=== PATIENT | female | born 1980 | race Caucasian/White ===

== ENCOUNTER 2017-09-14 20:09 | Inpatient (IN) | payer OTHER ==
[2017-09-14] MEDS ORDERED: Sodium Chloride 0.9% 1,000 ML IV ONE ×3 (20:21→22:48)
[2017-09-14 21:12] LABS: ACETAMINOPHEN < 2 ug/mL (10-30)
--- NOTE | 2017-09-14 21:41 | EDM.PDOC ---
ED HPI GENERAL MEDICAL PROBLEM - General Chief Complaint: Drug or Alcohol Abuse Stated Complaint: CONFUSE Time Seen by Provider: 09/14/17 20:15 Source of Information: Reports: Patient, EMS History Limitations: Reports: Altered Mental Status - History of Present Illness INITIAL COMMENTS - FREE TEXT/NARRATIVE: 37 y.o.w.f was brought to the ed by EMS after she was found somnolent in her car. No family was present, and pt is not able to give a HPI. Pt attempted to walk but was confused. she did not remember her meds and was confused to time, place and situation. No N/V/D. Her med list showed she is taking melatonin. Pt fell asleep immediately however, was arousable with verbal stimuli. BP 132/92 RR 12 Pulse 0x 92% on RA Pulse 103 Temp 36.2 Onset Date: 09/14/17 Onset Time: 19:00 Duration: Hour(s): Location: Reports: Generalized Quality: Reports: Other (mental status change) Improves with: Reports: None Worsens with: Reports: None Context: Reports: Other (possible Melatonin OD) Associated Symptoms: Reports: Confusion - Related Data Allergies Allergy/AdvReac Type Severity Reaction Status Date / Time ketorolac tromethamine Allergy Tachycardia Verified 09/14/17 20:36 [From Toradol] tramadol Allergy Shaking Verified 09/14/17 20:36 Home Meds: Home Meds . [Unable to Verify Home Med List] 09/14/17 [History] Past Medical History Other OB/BYN History: Social & Family History - Tobacco Use Smoking Status *Q: Current Every Day Smoker Years of Tobacco use: 2 Used Tobacco, but Quit: No Second Hand Smoke Exposure: No - Alcohol Use Days Per Week of Alcohol Use: 1 Number of Drinks Per Day: 2 Total Drinks Per Week: 2 - Recreational Drug Use Recreational Drug Use: No ED ROS GENERAL - Review of Systems Review Of Systems: Unable To Obtain - Physical Exam Exam: See Below Exam Limited By: Altered Mental Status General Appearance: Lethargic, Obtunded, Mild Distress Eye Exam: Bilateral Eye: Normal Inspection Ears: Normal External Exam Nose: Normal Inspection Throat/Mouth: Normal Inspection Head Exam: Atraumatic, Normocephalic Neck: Normal Inspection, Supple, Non-Tender, Full Range of Motion Respiratory/Chest: No Respiratory Distress, Lungs Clear, Normal Breath Sounds ( poor insp effort) Cardiovascular: Normal Peripheral Pulses, Regular Rate, Rhythm, No Edema, No Murmur, No Rub GI/Abdominal: Normal Bowel Sounds, Soft (Female) Exam: Deferred Rectal (Female) Exam: Deferred Neuro Exam (Abbreviated): Inattentive, Confused, Slow to Respond, Abnormal Gait (due to lethargy) Back Exam: Normal Inspection, Full Range of Motion Extremities: Normal Inspection, Normal Range of Motion, Non-Tender, No Pedal Edema Psychiatric: Depressed Mood Skin Exam: Warm, Dry, Intact, Normal Color, No Rash EKG INTERPRETATION EKG Date: 09/14/17 Time: 23:55 Rhythm: NSR Rate (Beats/Min): 100 [place]: Normal P-Wave: Present QRS: Normal ST-T: Normal QT: Normal Comparison: NA - No Prior EKG Course - Vital Signs Text/Narrative:: 37 y.o.w.f was brought to the ed by EMS after she was found somnolent in her car. No family was present, and pt is not able to give a HPI. Pt attempted to walk but was confused. she did not remember her meds and was confused to time, place and situation. No N/V/D. Her med list showed she is taking melatonin. Pt fell asleep immediately however, was arousable with verbal stimuli. BP 132/92 RR 12 Pulse 0x 92% on RA Pulse 103 Temp 36.2 PE: 37 y.o.w.f came by EMS to the ed after she was found somnolent in her car, denying any etoh or drug use, tkes melatonin for sleep labs: HGB 10.7 WBC 13.6 BUN 5 Cr. 0.7 UDS neg ETOH neg, ASA and Acetaminophen neg Imaging: Not indicated ECG: NSR Impression: Lethargy, possible melatonin OD Tx: NS 9.33 pm Consultation: Po[facility] [place]: Give I.V fluids, observe for 6 hours. Reevaluation: Pt was not improving with NS, was trying to walk but was confused. No focal weakness, needed to be on 1 liter O2 to keep her O2 sat above 94. no family showed up. 23.20: Poison Control called back recommending to admit pt Plan: Pt was admitted to [facility] with tele 09/15/2017 Adendum: Ptwas was admitted to [facility] tele and did improve her mental status. She said, she took a "water pill" which made her sleepy. She dis not remember the name of the pill. She was oriented times X3 was ambulating well. Her arrived, requesting to take her home because he has to go to work at 7 am. Plan: D/C with instructions from the Inpatient service. Last Recorded V/S: Last Vital Signs Temp 36.7 C 09/15/17 04:00 Pulse 101 H 09/15/17 04:00 Resp 18 09/15/17 04:00 BP 177/99 H 09/15/17 04:00 Pulse Ox 98 09/15/17 04:00 - Orders/Labs/Meds Orders: Active Orders 24 hr Category Date Time Status DRUG SCREEN, URINE ALERE [URCHEM] Stat Lab 09/14/17 20:19 Ordered HCG QUALITATIVE,URINE [URCHEM] Stat Lab 09/14/17 20:19 Ordered EKG 12 Lead [EK] Routine Ther 09/14/17 23:50 Ordered Labs: Laboratory Tests 09/14/17 09/14/17 09/14/17 Range/Units 20:19 20:19 20:45 WBC 13.8 H (4.5-12.0) X10-3/uL RBC 4.09 (3.23-5.20) x10(6)uL Hgb 10.7 L D (11.5-15.5) g/dL Hct 32.7 (30.0-51.3) % MCV 79.8 L (80-96) fL MCH 26.0 L (27.7-33.6) pg MCHC 32.6 (32.2-35.4) g/dL RDW 14.7 (11.5-15.5) % Plt Count 229 (125-369) X10(3)uL MPV 8.5 (7.4-10.4) fL Neut % (Auto) 72.0 (46-82) % Lymph % (Auto) 21.9 (13-37) % [place] % (Auto) 4.6 (4-12) % Eos % (Auto) 1 (1.0-5.0) % Baso % (Auto) 0 (0-2) % Neut # (Auto) 10.0 H (1.6-8.3) # Lymph # (Auto) 3.0 (0.6-5.0) # [place] # (Auto) 0.6 (0.0-1.3) # Eos # (Auto) 0.2 (0.0-0.8) # Baso # (Auto) 0.0 (0.0-0.2) # PT (8.7-11.1) INR (0.89-1.13) Sodium (135-145) mmol/L Potassium (3.5-5.3) mmol/L Chloride (100-110) mmol/L Carbon Dioxide (21-32) mmol/L BUN (7-18) mg/dL Creatinine (0.55-1.02) mg/dL Est Cr Clr Drug Dosing Estimated GFR (MDRD) (>60) BUN/Creatinine Ratio (9-20) Glucose (80-116) mg/dL Calcium (8.6-10.2) mg/dL TSH, Ultra Sensitive (0.36-3.74) IU/mL Urine HCG, Qual Negative (NEGATIVE) Salicylates (2.8-20.0) mg/dL Urine Opiates Screen Negative (NEGATIVE) Ur Oxycodone Screen Negative (NEGATIVE) Ur Propoxyphene Screen Negative (NEGATIVE) Acetaminophen (10-30) ug/mL Ur Barbituates Screen Negative (NEGATIVE) Ur Tricyclics Screen Negative (NEGATIVE) Ur Phencyclidine Scrn Negative (NEGATIVE) Ur Amphetamine Screen Negative (NEGATIVE) Urine MDMA Screen Negative (NEGATIVE) U Benzodiazepines Scrn Negative (NEGATIVE) U Cocaine Metab Screen Negative (NEGATIVE) U Marijuana (THC) Screen Negative (NEGATIVE) Ethyl Alcohol (<0.03) % 09/14/17 09/14/17 09/14/17 Range/Units 20:45 20:45 20:45 WBC (4.5-12.0) X10-3/uL RBC (3.23-5.20) x10(6)uL Hgb (11.5-15.5) g/dL Hct (30.0-51.3) % MCV (80-96) fL MCH (27.7-33.6) pg MCHC (32.2-35.4) g/dL RDW (11.5-15.5) % Plt Count (125-369) X10(3)uL MPV (7.4-10.4) fL Neut % (Auto) (46-82) % Lymph % (Auto) (13-37) % [place] % (Auto) (4-12) % Eos % (Auto) (1.0-5.0) % Baso % (Auto) (0-2) % Neut # (Auto) (1.6-8.3) # Lymph # (Auto) (0.6-5.0) # [place] # (Auto) (0.0-1.3) # Eos # (Auto) (0.0-0.8) # Baso # (Auto) (0.0-0.2) # PT 10.3 (8.7-11.1) INR 1.02 (0.89-1.13) Sodium 138 (135-145) mmol/L Potassium 3.6 (3.5-5.3) mmol/L Chloride 101 (100-110) mmol/L Carbon Dioxide 29 (21-32) mmol/L BUN 5 L (7-18) mg/dL Creatinine 0.7 (0.55-1.02) mg/dL Est Cr Clr Drug Dosing TNP Estimated GFR (MDRD) > 60 (>60) BUN/Creatinine Ratio 7.1 L (9-20) Glucose 102 (80-116) mg/dL Calcium 8.7 (8.6-10.2) mg/dL TSH, Ultra Sensitive 4.96 H (0.36-3.74) IU/mL Urine HCG, Qual (NEGATIVE) Salicylates 6.4 (2.8-20.0) mg/dL Urine Opiates Screen (NEGATIVE) Ur Oxycodone Screen (NEGATIVE) Ur Propoxyphene Screen (NEGATIVE) Acetaminophen < 2 L (10-30) ug/mL Ur Barbituates Screen (NEGATIVE) Ur Tricyclics Screen (NEGATIVE) Ur Phencyclidine Scrn (NEGATIVE) Ur Amphetamine Screen (NEGATIVE) Urine MDMA Screen (NEGATIVE) U Benzodiazepines Scrn (NEGATIVE) U Cocaine Metab Screen (NEGATIVE) U Marijuana (THC) Screen (NEGATIVE) Ethyl Alcohol < 0.03 (<0.03) % Meds: Medications Discontinued Medications Generic Name Dose Route Start Last Admin Trade Name Freq PRN Reason Stop Dose Admin Sodium Chloride 1,000 mls @ 999 mls/hr 09/14/17 20:21 09/14/17 20:45 Normal Saline IV 09/14/17 21:21 999 mls/hr .BOLUS ONE Administration Sodium Chloride 1,000 mls @ 999 mls/hr 09/14/17 21:45 09/14/17 21:47 Normal Saline IV 09/14/17 22:45 999 mls/hr .BOLUS ONE Administration Sodium Chloride 1,000 mls @ 125 mls/hr 09/14/17 22:48 09/14/17 22:50 Normal Saline IV 09/15/17 06:47 125 mls/hr .BOLUS ONE Administration Departure - Departure Time of Disposition: 23:00 Disposition: Admitted As Inpatient 68 Condition: Fair Clinical Impression: Mental status change Qualifiers: Altered mental status type: somnolence Qualified Code(s): R40.0 - Somnolence - Discharge Information - My Orders Last 24 Hours: My Active Orders 09/14/17 20:19 DRUG SCREEN, URINE ALERE [URCHEM] Stat HCG QUALITATIVE,URINE [URCHEM] Stat 09/14/17 23:50 EKG 12 Lead [EK] Routine - Assessment/Plan Last 24 Hours: My Active Orders 09/14/17 20:19 DRUG SCREEN, URINE ALERE [URCHEM] Stat HCG QUALITATIVE,URINE [URCHEM] Stat 09/14/17 23:50 EKG 12 Lead [EK] Routine
[2017-09-15 04:10] VITALS: BP 177/99
== END 2017-09-15 05:03 | disposition home or self-care (01) | DRG 81 ==
LOC: FB.ED 20:09 → UNDOADMOB 09-15 00:13 → FB.MS 09-15 00:13 → UNDOADMOB 09-15 02:39 → FB.MS 09-15 02:39 → OBSVTOIN 09-15 02:39 → UNDODISOB 09-15 05:03
PROVIDERS: ADMIT Emergency Medicine; ATTEND Family Medicine
DX: R40.0 Somnolence (principal); F17.200 Nicotine dependence, unspecified, uncomplicated; Z88.8 Allergy status to other drugs, medicaments and biological substances; Z88.6 Allergy status to analgesic agent
CPT/HCPCS: 36415; 80048; 80305; 81025; 84443; 85025; 85610; 93005; 93010; 96360; 96361; 99284; 99285; G0378; G0480; J7030

== ENCOUNTER 2018-07-08 15:47 | Emergency (ER) | payer MEDICAID, OTHER ==
[2018-07-08] MEDS ORDERED: Acetaminophen/HYDROcodone 325-5 MG Tab PO ONE (15:48)
[2018-07-08] MEDS ORDERED: Sodium Chloride 0.9% 10 ML Syringe FLUSH PRN (16:05)
[2018-07-08] MEDS ORDERED: Sodium Chloride 0.9% 1,000 ML IV ONE (16:05)
--- NOTE | 2018-07-08 16:09 | EDM.PDOC ---
ED HPI GENERAL MEDICAL PROBLEM - General Chief Complaint: Back Pain or Injury Stated Complaint: BACKPAIN Time Seen by Provider: 07/08/18 16:06 Source of Information: Reports: Patient History Limitations: Reports: No Limitations - History of Present Illness INITIAL COMMENTS - FREE TEXT/NARRATIVE: Presents with left lower back pain since last night, no injury. +prior h/o kidney stone. Denies nausea. Pain radiates to LUQ Abdomen (slight discomfort). Onset Date: 07/07/18 Location: Reports: Back Quality: Reports: Sharp Severity: Moderate Associated Symptoms: Reports: No Other Symptoms Left low back Pain Score (Numeric/FACES): 6 - Related Data Allergies Allergy/AdvReac Type Severity Reaction Status Date / Time ketorolac [From Toradol] Allergy Respiratory Verified 07/08/18 16:33 Distress ketorolac tromethamine Allergy Tachycardia Verified 07/08/18 16:33 [From Toradol] steroid Allergy Respiratory Uncoded 03/03/18 17:56 Distress Home Meds: Home Meds Ibuprofen 200 mg PO ASDIRECTED PRN 01/28/18 [History] Methocarbamol [Robaxin-750] 1,500 mg PO TID PRN #40 tablet 07/08/18 [Rx] Past Medical History Gastrointestinal History: Reports: Other (See Below) Other Gastrointestinal History: ulcerative colitis Genitourinary History: Reports: Renal Calculus 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 Endocrine/Metabolic History: Reports: Diabetes, Type II Other Endocrine/Metabolic History: takes metformin Dermatologic History: Reports: Other (See Below) Other Dermatologic History: States she was MRSA positive in November 2017. - Infectious Disease History Infectious Disease History: Reports: Chicken Pox, MRSA - Past Surgical History Other HEENT Surgeries/Procedures: unable to get informationas of this time. Other Cardiovascular Surgeries/Procedures: unable to get information as of this time Other Respiratory Surgeries/Procedures: unable to get information as of this time Female Surgical History: Reports: Hysterectomy, Kidney stone extraction Other Neurological Surgeries/Procedures: unable to get information as of this time Other Musculoskeletal Surgeries/Procedures:: unable to get information as of this time Social & Family History - Family History Family Medical History: Noncontributory - Tobacco Use Smoking Status *Q: Current Every Day Smoker Tobacco Use Within Last Twelve Months: Cigarettes Years of Tobacco use: 10 Packs/Tins Daily: 0.5 - Caffeine Use Caffeine Use: Reports: None - Alcohol Use Alcohol Use History: No - Recreational Drug Use Recreational Drug Use: No ED ROS GENERAL - Review of Systems Review Of Systems: ROS reveals no pertinent complaints other than HPI. ED EXAM,LOWER BACK PAIN/INJURY - Physical Exam Exam: See Below Exam Limited By: No Limitations General Appearance: Alert, WD/WN, No Apparent Distress Ears: Normal External Exam Nose: Normal Inspection Throat/Mouth: No Airway Compromise Head: Atraumatic, Normocephalic Neck: Supple Respiratory/Chest: No Respiratory Distress, Lungs Clear, Normal Breath Sounds Cardiovascular: Regular Rate, Rhythm, No Murmur GI/Abdominal: Soft, Non-Tender, No Distention Back Exam: CVA Tenderness (L) Extremities: Normal Range of Motion Neurological: Alert, Normal Mood/Affect Psychiatric: Normal Affect, Normal Mood Skin Exam: Warm, Dry, Intact Course - Vital Signs Last Recorded V/S: Last Vital Signs Temp 35.9 C 07/08/18 15:55 Pulse 64 07/08/18 15:55 Resp 18 07/08/18 15:55 BP 102/55 L 07/08/18 15:55 Pulse Ox 98 07/08/18 15:55 - Orders/Labs/Meds Orders: Active Orders 24 hr Category Date Time Status Abdomen Pelvis wo Cont [CT] Stat Exams 07/08/18 16:16 Taken Sodium Chloride 0.9% [Saline Flush] Med 07/08/18 16:05 Active 10 ml FLUSH ASDIRECTED PRN Saline Lock Insert [OM.PC] Routine Oth 07/08/18 16:05 Ordered Medication Orders Sodium Chloride (Saline Flush) 10 ml FLUSH ASDIRECTED PRN PRN Reason: Keep Vein Open Last Admin: 07/08/18 16:15 Dose: 10 ml Labs: Laboratory Tests 07/08/18 07/08/18 07/08/18 Range/Units 16:02 16:20 16:20 WBC 12.4 H (4.5-12.0) X10-3/uL RBC 5.21 H (3.23-5.20) x10(6)uL Hgb 14.2 (11.5-15.5) g/dL Hct 42.7 (30.0-51.3) % MCV 81.9 (80-96) fL MCH 27.2 L (27.7-33.6) pg MCHC 33.2 (32.2-35.4) g/dL RDW 15.5 (11.5-15.5) % Plt Count 266 (125-369) X10(3)uL MPV 9.5 (7.4-10.4) fL Neut % (Auto) 51.6 (46-82) % Lymph % (Auto) 42.3 H (13-37) % [place] % (Auto) 4.6 (4-12) % Eos % (Auto) 1 (1.0-5.0) % Baso % (Auto) 1 (0-2) % Neut # (Auto) 6.4 (1.6-8.3) # Lymph # (Auto) 5.2 H (0.6-5.0) # [place] # (Auto) 0.6 (0.0-1.3) # Eos # (Auto) 0.1 (0.0-0.8) # Baso # (Auto) 0.1 (0.0-0.2) # Sodium 136 (135-145) mmol/L Potassium 3.8 (3.5-5.3) mmol/L Chloride 101 (100-110) mmol/L Carbon Dioxide 26 (21-32) mmol/L BUN 14 (7-18) mg/dL Creatinine 0.8 (0.55-1.02) mg/dL Est Cr Clr Drug Dosing 69.83 mL/min Estimated GFR (MDRD) > 60 (>60) BUN/Creatinine Ratio 17.5 (9-20) Glucose 89 (80-116) mg/dL Calcium 9.5 (8.6-10.2) mg/dL Total Bilirubin 0.3 (0.1-1.3) mg/dL AST 26 H D (5-25) IU/L ALT 53 H D (12-36) U/L Alkaline Phosphatase 60 (56-112) IU/L Total Protein 8.1 H (6.0-8.0) g/dL Albumin 3.8 (3.5-5.2) g/dL Globulin 4.3 g/dL Albumin/Globulin Ratio 0.9 Urine Color Yellow (YELLOW) Urine Appearance Slightly cloudy (CLEAR) Urine pH 6.0 (5.0-6.5) Ur Specific [place] 1.020 (1.010-1.025) Urine Protein Negative (NEGATIVE) mg/dL Urine Glucose (UA) Normal (NEGATIVE) mg/dL Urine Ketones Negative (NEGATIVE) mg/dL Urine Occult Blood Negative (NEGATIVE) Urine Nitrite Negative (NEGATIVE) Urine Bilirubin Negative (NEGATIVE) Urine Urobilinogen Normal (NEGATIVE) mg/dL Ur Leukocyte Esterase Negative (NEGATIVE) Urine RBC 0-5 (0) Urine WBC 0-5 (0) Ur Squamous Epith Cells Moderate H (NS,R,O) Urine Bacteria Many H (NS) Meds: Medications Generic Name Dose Route Start Last Admin Trade Name Freq PRN Reason Stop Dose Admin Sodium Chloride 10 ml 07/08/18 16:05 07/08/18 16:15 Saline Flush FLUSH 10 ml ASDIRECTED PRN Administration Keep Vein Open Discontinued Medications Generic Name Dose Route Start Last Admin Trade Name Freq PRN Reason Stop Dose Admin Sodium Chloride 1,000 mls @ 999 mls/hr 07/08/18 16:05 07/08/18 16:22 Normal Saline IV 07/08/18 17:05 200 mls/hr .BOLUS ONE Administration - Radiology Interpretation Free Text/Narrative:: CT Abd/Pelvis w/o contrast: no acute findings. Departure - Departure Time of Disposition: 17:20 Disposition: Home, Self-Care 01 Condition: Good Clinical Impression: Low back pain Qualifiers: Chronicity: acute Back pain laterality: left Sciatica presence: without sciatica Qualified Code(s): M54.5 - Low back pain - Discharge Information *PRESCRIPTION DRUG MONITORING PROGRAM REVIEWED*: Yes *COPY OF PRESCRIPTION DRUG MONITORING REPORT IN PATIENT PAULA: No Prescriptions: Methocarbamol [Robaxin-750] 1,500 mg PO TID PRN #40 tablet PRN Reason: Muscle Spasm Instructions: Back Pain, Adult, [id number] Referrals: PCP,None [Primary Care Provider] - Forms: ED Department Discharge Additional Instructions: Take the Hydrocodone and Robaxin as directed. Rest. Follow up with your primary physician in 2 days if symptoms don't improve. - My Orders Last 24 Hours: My Active Orders 07/08/18 16:05 Sodium Chloride 0.9% [Saline Flush] 10 ml FLUSH ASDIRECTED PRN Saline Lock Insert [OM.PC] Routine 07/08/18 16:16 Abdomen Pelvis wo Cont [CT] Stat - Assessment/Plan Last 24 Hours: My Active Orders 07/08/18 16:05 Sodium Chloride 0.9% [Saline Flush] 10 ml FLUSH ASDIRECTED PRN Saline Lock Insert [OM.PC] Routine 07/08/18 16:16 Abdomen Pelvis wo Cont [CT] Stat
[2018-07-08 17:35] VITALS: BP 91/64
== END 2018-07-08 17:32 | disposition home or self-care (01) ==
LOC: FB.ED 15:47
DX: M54.5 Low back pain (principal); F17.210 Nicotine dependence, cigarettes, uncomplicated; E11.9 Type 2 diabetes mellitus without complications; Z88.8 Allergy status to other drugs, medicaments and biological substances
CPT/HCPCS: 36415; 74176; 80053; 81001; 85025; 96360; 99284; A9270-GY; J7030

== ENCOUNTER 2018-10-02 09:13 | Emergency (ER) | payer OTHER, SELFPAY ==
[2018-10-02] MEDS ORDERED: Sodium Chloride 0.9% 10 ML Syringe FLUSH PRN (09:47)
[2018-10-02] MEDS ORDERED: Morphine 4 MG/ML Syringe IVPUSH ONE (09:49)
[2018-10-02] MEDS ORDERED: Ondansetron 4 MG/2 ML SDV IVPUSH ONE (09:49)
[2018-10-02] MEDS ORDERED: Sodium Chloride 0.9% 1,000 ML IV ONE (09:49)
[2018-10-02] MEDS ORDERED: Morphine 2 MG/ML Syringe IM ONE (09:52)
--- NOTE | 2018-10-02 10:07 | EDM.PDOC ---
ED HPI GENERAL MEDICAL PROBLEM - General Chief Complaint: Back Pain or Injury Stated Complaint: RT SIDE AND LOW BACK PAIN Time Seen by Provider: 10/02/18 09:25 Source of Information: Reports: Patient History Limitations: Reports: No Limitations - History of Present Illness INITIAL COMMENTS - FREE TEXT/NARRATIVE: 38-year-old female with 2 day history of intermittent right mid back, flank and abdominal pain. It is sharp and shooting pain. At its worst it is an 8/10. It is worse with palpation. She's also had some nausea and vomiting associated with this. She's had vomiting 2 today. No fevers. No chills. No dysuria. No hematuria. No change in her bowel movements. No trauma. She has not had much of an appetite. She does have a history of low back pain but has never had pain like this before she states. There are no other associated signs or symptoms. There are no other modifying factors. Onset: Other (2 days) Duration: Getting Worse, Waxing/Waning Location: Reports: Abdomen, Back Quality: Reports: Sharp Severity: Moderate Improves with: Reports: None Worsens with: Reports: Other (Palpation) Context: Reports: Other (Nothing) Associated Symptoms: Reports: Loss of Appetite, Nausea/Vomiting Treatments DIRECTOR HOSPICE OPERATIONS: Reports: Other (see below) (Nothing) - Related Data Allergies Allergy/AdvReac Type Severity Reaction Status Date / Time ketorolac [From Toradol] Allergy Respiratory Verified 10/02/18 09:25 Distress ketorolac tromethamine Allergy Tachycardia Verified 10/02/18 09:25 [From Toradol] steroid Allergy Respiratory Uncoded 03/03/18 17:56 Distress Home Meds: Home Meds Ibuprofen 200 mg PO ASDIRECTED PRN 01/28/18 [History] Hydrocodone/Acetaminophen [Brock[place] 5-325 Tablet] 1 - 2 tab PO Q6H PRN #12 tablet 10/02/18 [Rx] Ondansetron [Zofran ODT] 4 mg PO Q6H PRN #10 tab.dis 10/02/18 [Rx] Tamsulosin [Tamsulosin 24 Hr] 0.4 mg PO BEDTIME #7 cap.er 10/02/18 [Rx] Past Medical History Genitourinary History: Reports: Renal Calculus Other Genitourinary History: Kidney stones 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 Endocrine/Metabolic History: Reports: Diabetes, Type II Other Endocrine/Metabolic History: takes metformin /denied taking any meds at this time 10/02/18 Dermatologic History: Reports: Other (See Below) Other Dermatologic History: States she was MRSA positive in November 2017. - Infectious Disease History Infectious Disease History: Reports: Chicken Pox, MRSA - Past Surgical History Other HEENT Surgeries/Procedures: unable to get informationas of this time. Other Cardiovascular Surgeries/Procedures: unable to get information as of this time Other Respiratory Surgeries/Procedures: unable to get information as of this time GI Surgical History: Reports: Appendectomy, Cholecystectomy Female Surgical History: Reports: Hysterectomy, Kidney stone extraction Other Neurological Surgeries/Procedures: unable to get information as of this time Other Musculoskeletal Surgeries/Procedures:: unable to get information as of this time Social & Family History - Tobacco Use Smoking Status *Q: Never Smoker Second Hand Smoke Exposure: Yes - Caffeine Use Caffeine Use: Reports: None - Alcohol Use Alcohol Use History: No - Living Situation & Occupation Occupation: Employed (Works at [employer] ED ROS GENERAL - Review of Systems Review Of Systems: See Below Constitutional: Reports: No Symptoms HEENT: Reports: No Symptoms Respiratory: Reports: No Symptoms Cardiovascular: Reports: No Symptoms Endocrine: Reports: No Symptoms GI/Abdominal: Reports: Abdominal Pain (Right-sided), Nausea, Vomiting : Reports: No Symptoms Musculoskeletal: Reports: Back Pain (Right mid back pain) Skin: Reports: No Symptoms Neurological: Reports: No Symptoms Hematologic/Lymphatic: Reports: No Symptoms Immunologic: Reports: No Symptoms ED EXAM, GENERAL - Physical Exam Exam: See Below Exam Limited By: No Limitations General Appearance: Alert, WD/WN, No Apparent Distress Eye Exam: Bilateral Eye: EOMI, Normal Inspection, PERRL Ears: Normal External Exam, Hearing Grossly Normal Nose: Normal Inspection, Normal Mucosa Throat/Mouth: Normal Inspection (Except dry mucous membranes), Normal Voice, No Airway Compromise Head: Atraumatic, Normocephalic Neck: Normal Inspection, Supple, Non-Tender, Full Range of Motion Respiratory/Chest: No Respiratory Distress, Lungs Clear, Normal Breath Sounds, No Accessory Muscle Use, Chest Non-Tender Cardiovascular: Normal Peripheral Pulses, Regular Rate, Rhythm, No JVD, No Murmur Peripheral Pulses: 2+: Radial (L), Radial (R) GI/Abdominal: Normal Bowel Sounds, Soft, No Organomegaly, No Distention, Tender (Over right flank and right mid abdomen) Back Exam: Normal Inspection, CVA Tenderness (R) (Mild) Extremities: Normal Inspection, Normal Range of Motion, Non-Tender, No Pedal Edema, Normal Capillary Refill Neurological: Alert, Oriented, CN II-XII Intact, Normal Cognition, No Motor/ Sensory Deficits Psychiatric: Normal Affect Skin Exam: Warm, Dry, Intact, Normal Color, No Rash Lymphatic: No Adenopathy Course - Vital Signs Last Recorded V/S: Last Vital Signs Temp 37.0 C 10/02/18 09:15 Pulse 88 10/02/18 09:15 Resp 18 10/02/18 09:15 BP 103/82 10/02/18 09:15 Pulse Ox 98 10/02/18 09:15 - Orders/Labs/Meds Orders: Active Orders 24 hr Category Date Time Status Abdomen Pelvis wo Cont [CT] Stat Exams 10/02/18 09:47 Taken CULTURE URINE [RM] Stat Lab 10/02/18 13:16 Ordered Sodium Chloride 0.9% [Saline Flush] Med 10/02/18 09:47 Active 10 ml FLUSH ASDIRECTED PRN Peripheral IV Insertion Adult [OM.PC] Routine Oth 10/02/18 09:47 Ordered Medication Orders Sodium Chloride (Saline Flush) 10 ml FLUSH ASDIRECTED PRN PRN Reason: Keep Vein Open Last Admin: 10/02/18 12:11 Dose: 10 ml Labs: Laboratory Tests 10/02/18 10/02/18 10/02/18 Range/Units 10:00 10:00 10:45 WBC 11.6 (4.5-12.0) X10-3/uL RBC 4.67 (3.23-5.20) x10(6)uL Hgb 13.3 (11.5-15.5) g/dL Hct 40.1 (30.0-51.3) % MCV 85.8 (80-96) fL MCH 28.4 (27.7-33.6) pg MCHC 33.1 (32.2-35.4) g/dL RDW 14.1 (11.5-15.5) % Plt Count 245 (125-369) X10(3)uL MPV 9.3 (7.4-10.4) fL Neut % (Auto) 55.6 (46-82) % Lymph % (Auto) 39.5 H (13-37) % [place] % (Auto) 3.7 L (4-12) % Eos % (Auto) 1 (1.0-5.0) % Baso % (Auto) 1 (0-2) % Neut # (Auto) 6.4 (1.6-8.3) # Lymph # (Auto) 4.6 (0.6-5.0) # [place] # (Auto) 0.4 (0.0-1.3) # Eos # (Auto) 0.1 (0.0-0.8) # Baso # (Auto) 0.1 (0.0-0.2) # Sodium 142 (135-145) mmol/L Potassium 3.8 (3.5-5.3) mmol/L Chloride 103 (100-110) mmol/L Carbon Dioxide 27 (21-32) mmol/L BUN 13 (7-18) mg/dL Creatinine 0.8 (0.55-1.02) mg/dL Est Cr Clr Drug Dosing TNP Estimated GFR (MDRD) > 60 (>60) BUN/Creatinine Ratio 16.3 (9-20) Glucose 79 L (80-116) mg/dL Calcium 9.0 (8.6-10.2) mg/dL Total Bilirubin 0.2 (0.1-1.3) mg/dL AST 37 H D (5-25) IU/L ALT 75 H D (12-36) U/L Alkaline Phosphatase 70 (56-112) IU/L Total Protein 7.8 (6.0-8.0) g/dL Albumin 3.9 (3.5-5.2) g/dL Globulin 3.9 g/dL Albumin/Globulin Ratio 1.0 Amylase 46 (25-115) U/L Urine Color Yellow (YELLOW) Urine Appearance Slightly cloudy (CLEAR) Urine pH 6.0 (5.0-6.5) Ur Specific [place] 1.020 (1.010-1.025) Urine Protein Negative (NEGATIVE) mg/dL Urine Glucose (UA) Normal (NORMAL) mg/dL Urine Ketones Negative (NEGATIVE) mg/dL Urine Occult Blood Large H (NEGATIVE) Urine Nitrite Negative (NEGATIVE) Urine Bilirubin Negative (NEGATIVE) Urine Urobilinogen Normal (NEGATIVE) mg/dL Ur Leukocyte Esterase Negative (NEGATIVE) Urine RBC 75-100 H (0-5) Urine WBC 0-5 (0-5) Ur Squamous Epith Cells Few H (NS,R,O) Urine Bacteria Few H (NS) Meds: Medications Generic Name Dose Route Start Last Admin Trade Name Freq PRN Reason Stop Dose Admin Sodium Chloride 10 ml 10/02/18 09:47 10/02/18 12:11 Saline Flush FLUSH 10 ml ASDIRECTED PRN Administration Keep Vein Open Discontinued Medications Generic Name Dose Route Start Last Admin Trade Name Freq PRN Reason Stop Dose Admin Sodium Chloride 1,000 mls @ 999 mls/hr 10/02/18 09:49 10/02/18 10:00 Normal Saline IV 10/02/18 10:49 999 mls/hr .BOLUS ONE Administration Morphine Sulfate 4 mg 10/02/18 09:49 10/02/18 12:05 Morphine IVPUSH 10/02/18 09:50 Not Given ONETIME ONE Morphine Sulfate 4 mg 10/02/18 09:52 10/02/18 10:00 Morphine IM 10/02/18 09:53 4 mg ONETIME ONE Administration Morphine Sulfate 2 mg 10/02/18 11:59 10/02/18 12:07 Morphine IVPUSH 10/02/18 12:00 2 mg ONETIME ONE Administration Ondansetron HCl 4 mg 10/02/18 09:49 10/02/18 10:00 Zofran IVPUSH 10/02/18 09:50 4 mg ONETIME ONE Administration - Radiology Interpretation Free Text/Narrative:: CT scan of abdomen and pelvis showed no evidence of ureteral dilation, hydronephrosis or ureteral stone. There did not appear to be any other abnormality on the CT scan per my read. The official reading is pending at this time and is being held up secondary to problems with the PACS system. - Re-Assessments/Exams Free Text/Narrative Re-Assessment/Exam: 10/02/18 13:13: The PACS system is still down and therefore, the official reading of the CT scan is unavailable at this time. The patient has remained vitally stable. Her pain is improved after medication. She has had no vomiting in the emergency department and, in fact, she is taking by mouth now with no problems. The plan will be to treat the patient with Flomax and give her a prescription for pain medication and nausea medication and have her strain her urine. I have placed a referral to Peri Shaffer so that the patient can be established with a primary doctor to follow her for this and other medical concerns in the future. Departure - Departure Time of Disposition: 13:40 Disposition: Home, Self-Care 01 Condition: Good Clinical Impression: Right flank pain Abdominal pain Qualifiers: Abdominal location: right lower quadrant Qualified Code(s): R10.31 - Right lower quadrant pain Hematuria Qualifiers: Hematuria type: unspecified type Qualified Code(s): R31.9 - Hematuria, unspecified - Discharge Information Prescriptions: Hydrocodone/Acetaminophen [Brock[place] 5-325 Tablet] 1 - 2 tab PO Q6H PRN #12 tablet PRN Reason: Moderate to severe pain Ondansetron [Zofran ODT] 4 mg PO Q6H PRN #10 tab.dis PRN Reason: Nausea/Vomiting Tamsulosin [Tamsulosin 24 Hr] 0.4 mg PO BEDTIME #7 cap.er Instructions: Abdominal Pain, Adult, [id number], Pain Without a Known Cause, Hematuria, Adult Referrals: Melanie Shaffer NP [Nurse Practitioner] - PCP,None [Primary Care Provider] - Forms: ED Department Discharge Additional Instructions: As we discussed, your urine did have blood in it. Your blood tests were reassuringly normal. The CT scan of your abdomen and pelvis did not show a definite kidney stone or any other abnormality that would explain the pain you' re having in your back right side and right abdomen. I am waiting on the official reading on your CT scan and if it is different from above I will call you. Because of the blood in your urine, I would suspect this may be a small kidney stone that is passing from your kidney to your bladder. You should drink plenty of fluids. Medication as prescribed (hydrocodone 5/325, Flomax, Zofran 4 mg ODT). When you take the Flomax, you should be very careful as it may cause dizziness. I have referred you to Melanie Shaffer NP so that he may establish with a primary doctor to follow you for this problem and for your other health problems. You should expect a call from her office to arrange an appointment to see her. Back to the emergency department for fever, unrelenting vomiting or any other concerning sign or symptom. - My Orders Last 24 Hours: My Active Orders 10/02/18 09:47 Abdomen Pelvis wo Cont [CT] Stat Sodium Chloride 0.9% [Saline Flush] 10 ml FLUSH ASDIRECTED PRN Peripheral IV Insertion Adult [OM.PC] Routine 10/02/18 13:16 CULTURE URINE [RM] Stat - Assessment/Plan Last 24 Hours: My Active Orders 10/02/18 09:47 Abdomen Pelvis wo Cont [CT] Stat Sodium Chloride 0.9% [Saline Flush] 10 ml FLUSH ASDIRECTED PRN Peripheral IV Insertion Adult [OM.PC] Routine 10/02/18 13:16 CULTURE URINE [RM] Stat
[2018-10-02] MEDS ORDERED: Morphine 2 MG/ML Syringe IVPUSH ONE (11:59)
[2018-10-02 14:11] VITALS: BP 111/86
== END 2018-10-02 14:00 | disposition home or self-care (01) ==
LOC: FB.ED 09:13
DX: R10.31 Right lower quadrant pain (principal); R31.9 Hematuria, unspecified; Z79.899 Other long term (current) drug therapy; Z77.22 Contact with and (suspected) exposure to environmental tobacco smoke (acute) (chronic); Z88.6 Allergy status to analgesic agent
CPT/HCPCS: 36415; 74176; 80053; 81001; 82150; 85025; 87086; 96361; 96374; 96375; 96376; 99284; J2270; J2405; J7030

== ENCOUNTER 2018-10-25 13:44 | Emergency (ER) | payer OTHER, SELFPAY ==
--- NOTE | 2018-10-25 14:31 | EDM.PDOC ---
ED HPI GENERAL MEDICAL PROBLEM - General Chief Complaint: Back Pain or Injury Stated Complaint: BACK PAIN Time Seen by Provider: 10/25/18 14:21 Source of Information: Reports: Patient, Old Records History Limitations: Reports: No Limitations - History of Present Illness INITIAL COMMENTS - FREE TEXT/NARRATIVE: pleasant 38yo female presents today with acute onset of back pain which started when she went to lift a heavy box at work. 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 She reports pain in her left low back, does not go into her leg. She has not taken anything for the pain. She denies any previous injury and's\\ was feeling well prior to this happening. No saddle anesthesia, no obvious changes in bowel or bladder also the injury was only 90 minutes ago. No pain going down her left leg. She has not noted anything that makes it better or worse. 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 L lower back region Pain Score (Numeric/FACES): 7 - Related Data Allergies Allergy/AdvReac Type Severity Reaction Status Date / Time ketorolac [From Toradol] Allergy Respiratory Verified 10/25/18 13:51 Distress ketorolac tromethamine Allergy Tachycardia Verified 10/25/18 13:51 [From Toradol] steroid Allergy Respiratory Uncoded 10/25/18 13:51 Distress Home Meds: Home Meds Cyclobenzaprine [Flexeril] 5 - 10 mg PO TID PRN 7 Days #20 tablet 10/25/18 [Rx] Past Medical History Cardiovascular History: Reports: Hypertension Gastrointestinal History: Reports: Other (See Below) Other Gastrointestinal History: hx ulcerative colitis Genitourinary History: Reports: Renal Calculus Other Genitourinary History: Kidney stones 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 Endocrine/Metabolic History: Reports: Diabetes, Type II, Obesity/BMI 30+ Other Endocrine/Metabolic History: takes metformin /denied taking any meds at this time, is diet controlled. Dermatologic History: Reports: Other (See Below) Other Dermatologic History: States she was MRSA positive in November 2017. - Infectious Disease History Infectious Disease History: Reports: Chicken Pox, MRSA - Past Surgical History HEENT Surgical History: Reports: Adenoidectomy, Oral Surgery, Tonsillectomy Cardiovascular Surgical History: Reports: None GI Surgical History: Reports: Appendectomy, Cholecystectomy, Colonoscopy Female Surgical History: Reports: Hysterectomy, Other (See Below) Other Female Surgeries/Procedures: vag hyst Social & Family History - Family History Family Medical History: Noncontributory - Tobacco Use Smoking Status *Q: Former Smoker Years of Tobacco use: 10 Used Tobacco, but Quit: Yes Month/Year Tobacco Last Used: may - Caffeine Use Caffeine Use: Reports: None - Alcohol Use Alcohol Use History: No - Recreational Drug Use Recreational Drug Use: No - Living Situation & Occupation Occupation: Employed (Works at [employer]) ED ROS GENERAL - Review of Systems Review Of Systems: ROS reveals no pertinent complaints other than HPI. ED EXAM, GENERAL - Physical Exam Exam: See Below Free Text/Narrative:: Gen.: Alert, somewhat flattened affect, not in acute distress. Moves very slowly across the exam room to get onto the table. Reflexes +2/4 in both the upper and lower extremities bilaterally, muscle strength +5 out of 5 in the left leg at all spinal levels. Muscle strength +4 out of 5 in hip flexion, knee flexion and extension, foot inversion, and dorsiflexion in the right leg with very poor cooperation on exam. +5 out of 5 strength standing on heels and toes. Is able to sit and lie down on bed but moves slowly due to pain. Abdominal exam soft, nondistended and nontender with no rebound or guarding and no reproduction of back pain. Patient is nontender over the spinous processes posteriorly, and has no hip tenderness with pelvic compression or head movement. She is tender over the paraspinal muscles on the left side. Skin is intact with no abrasion or bruising Course - Vital Signs Text/Narrative:: Patient seen and evaluated, low back injury related to picking up a box at work and patient have any other symptoms or red flags. no indication for xray. She reports feeling well prior to the injury and also reports no previous history of injury, however she has been evaluated for back pain here in the emergency room in the past. Discussed expected course and need for follow-up early next week, [id number] treatment such as Tylenol, ibuprofen, heat and ice which can help alleviate symptoms, and reasons to return for further care. All questions were answered Last Recorded V/S: Last Vital Signs Temp 36.8 C 10/25/18 13:46 Pulse 116 H 10/25/18 13:46 Resp 18 10/25/18 13:46 BP 142/89 H 10/25/18 13:46 Pulse Ox 99 10/25/18 13:46 - Orders/Labs/Meds Meds: Medications Discontinued Medications Generic Name Dose Route Start Last Admin Trade Name Antonia PRN Reason Stop Dose Admin Ibuprofen 800 mg 10/25/18 14:36 10/25/18 14:50 Motrin PO 10/25/18 14:37 800 mg ONETIME ONE Administration Departure - Departure Time of Disposition: 14:35 Disposition: Home, Self-Care 01 Condition: Fair Clinical Impression: Low back pain Qualifiers: Chronicity: acute Back pain laterality: left Sciatica presence: without sciatica Qualified Code(s): M54.5 - Low back pain - Discharge Information *PRESCRIPTION DRUG MONITORING PROGRAM REVIEWED*: Yes *COPY OF PRESCRIPTION DRUG MONITORING REPORT IN PATIENT PAULA: Yes Prescriptions: Cyclobenzaprine [Flexeril] 5 - 10 mg PO TID PRN 7 Days #20 tablet PRN Reason: Pain Instructions: Acute Back Pain, Adult Referrals: PCP,None [Primary Care Provider] - Forms: ED Department Discharge Additional Instructions: likely will hurt more in the morning and over the next couple days as the inflammation peaks from the injury. Things to help: Ibuprofen up to 600mg (3 tabs) three times per day tylenol per bottle ice up to 20 min every hour (don't fall asleep with ice though - can cause frostbite) heat - up to 10-15 minutes, or the best way to apply heat is to get in the shower, the running water, warmth and movement are all helpful anything topical is ok -icy hot, biofreeze are two common over the counter medications flexeril as needed - muscle relaxant - prescription given to help, don't take before driving as it can make you sleepy Gentle movements - no lifting - but walking alternating with lying down, avoiding prolonged sitting or standing, and moving around the house are good Should start to feel better after Monday. At this point it is important to move around and get some walking in to help the muscles repair and not get stiff followup next week with PCP note provided for work
[2018-10-25] MEDS ORDERED: Ibuprofen 800 MG Tab PO ONE (14:36)
[2018-10-25 15:05] VITALS: BP 136/88
== END 2018-10-25 14:56 | disposition home or self-care (01) ==
LOC: FB.ED 13:44
DX: M54.5 Low back pain (principal); E11.9 Type 2 diabetes mellitus without complications; F41.9 Anxiety disorder, unspecified; F32.9 Major depressive disorder, single episode, unspecified; Z87.891 Personal history of nicotine dependence; Z79.899 Other long term (current) drug therapy; Z88.5 Allergy status to narcotic agent; X50.0XXA Overexertion from strenuous movement or load, initial encounter
CPT/HCPCS: 99283; A9270

== ENCOUNTER 2018-10-27 13:12 | Emergency (ER) | payer OTHER ==
[2018-10-27] MEDS ORDERED: Ondansetron 8 MG Tab.DIS PO ONE (13:54)
[2018-10-27 14:40] VITALS: BP 102/73
--- NOTE | 2018-10-27 15:12 | EDM.PDOC ---
ED HPI GENERAL MEDICAL PROBLEM - General Chief Complaint: Back Pain or Injury Stated Complaint: BACK PAIN Time Seen by Provider: 10/27/18 13:30 Source of Information: Reports: Patient History Limitations: Reports: No Limitations - History of Present Illness INITIAL COMMENTS - FREE TEXT/NARRATIVE: patient returns today with still bad back pain which began while at work at [employer] 2 days ago. Flexeril isn't helping. She has also been taking ibuprofen, tylenol, making sure to move around the house, no lifting. Some diarrhea started a couple days ago, no blood. Mild nausea today. No urinary symptoms or change in urinary. No incontinence or retention. Does notice a new number/tingly feeling on her anterior thigh, left side. No pain otherwise in her legs or going down the back of her legs. She denies fever, chills, sweats (hair wet, but showered before coming here). Pain is worse with movement/changing positions. Has been home from work - given note on 10/25. No numbness or tingling in hands or feet, no saddle anesthesia. No abdominal pain, headaches, or changes in balance. back pain Pain Score (Numeric/FACES): 6 - Related Data Allergies Allergy/AdvReac Type Severity Reaction Status Date / Time ketorolac [From Toradol] Allergy Respiratory Verified 10/27/18 13:47 Distress ketorolac tromethamine Allergy Tachycardia Verified 10/27/18 13:47 [From Toradol] steroid Allergy Respiratory Uncoded 10/25/18 13:51 Distress Home Meds: Home Meds Baclofen 10 mg PO Q8H PRN 7 Days #12 tablet 10/27/18 [Rx] Ondansetron [Zofran] 4 - 8 mg PO Q6H 30 Days #20 tab 10/27/18 [Rx] Past Medical History Cardiovascular History: Reports: Hypertension Gastrointestinal History: Reports: Other (See Below) Other Gastrointestinal History: hx ulcerative colitis Genitourinary History: Reports: Renal Calculus Other Genitourinary History: Kidney stones 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 Endocrine/Metabolic History: Reports: Diabetes, Type II, Obesity/BMI 30+ Other Endocrine/Metabolic History: takes metformin /denied taking any meds at this time, is diet controlled. Dermatologic History: Reports: Other (See Below) Other Dermatologic History: States she was MRSA positive in November 2017. - Infectious Disease History Infectious Disease History: Reports: Chicken Pox, MRSA - Past Surgical History HEENT Surgical History: Reports: Adenoidectomy, Oral Surgery, Tonsillectomy Cardiovascular Surgical History: Reports: None GI Surgical History: Reports: Appendectomy, Cholecystectomy, Colonoscopy Female Surgical History: Reports: Hysterectomy, Other (See Below) Other Female Surgeries/Procedures: vag hyst Social & Family History - Family History Family Medical History: Noncontributory - Tobacco Use Smoking Status *Q: Former Smoker Used Tobacco, but Quit: Yes Month/Year Tobacco Last Used: may - Caffeine Use Caffeine Use: Reports: None - Alcohol Use Alcohol Use History: No - Recreational Drug Use Recreational Drug Use: No - Living Situation & Occupation Occupation: Employed (Works at [employer]) ED ROS GENERAL - Review of Systems Review Of Systems: ROS reveals no pertinent complaints other than HPI. ED EXAM, GENERAL - Physical Exam Exam: See Below Free Text/Narrative:: Gen.: Alert, mild distress. Nontoxic appearing. Here with, but showered before coming, slightly sweaty and tachycardic but is extremely warm outside today. At the end of the appointment she is sitting calmly, is not sweating or diuretic and appears well. Abdomen positive bowel sounds, soft nondistended nontender. No rebound or guarding. Heart is regular rate and rhythm and rate about 100, lungs are clear throughout with no wheezes or crackles. Neurologic exam shows: Refl +2/4 in both the upper and lower extremities including brachialradialis, patella and achilles. Negative Babinski sign. Sensation is grossly intact throughout, but she does have an area of paresthesias and pain over the left anterior thigh. Muscle strength is +5/5 in all muscle groups below the knee. +4/5 with quad strength on the left and hamstring strength on the left seems to be due to pain. On the right is 5/5. Hip abduction and hip abduction 5/5. Much improved cooperation over 2 days ago Musculoskeletal exam: She has pain with flexion, none with extension. Pain with side bending towards the left, none with side bending towards the right. Palpation over the posterior lumbar spine shows no spinous process tenderness, and no tenderness or tender points on the right side of the gluteal muscles. She has a left gluteal trigger point which compression of reproduces the symptoms in her thigh. Skin is without redness or erythema. Course - Vital Signs Text/Narrative:: Patient initially evaluated, vitals upon arrival were abnormal with an elevated temperature, elevated heart rate and elevated respiratory rate. Given her appearance it is difficult to determine if this is secondary to just coming in from a very warm outside and her pain versus systemic illness which is related in part to her back pain. Her exam is actually markedly improved from 2 days ago and much more focal now to a left-sided muscle strain in her back. Per her chart she does have a history of ulcerative colitis, but given that this onset with a known injury I think it is unlikely to be coming from there. Her diarrhea is new so we will get a CBC, BMP and CRP. Her Babinski is negative and she is overall moving better than prior, so I don't think this is necessarily related to her back pain. Offered Zofran, she did take Tylenol and ibuprofen just before coming here. Aware that I do not give narcotics for back pain. Last Recorded V/S: Last Vital Signs Temp 37.3 C 10/27/18 14:00 Pulse 103 H 10/27/18 14:00 Resp 20 10/27/18 14:00 BP 102/73 10/27/18 14:00 Pulse Ox 97 10/27/18 14:00 - Orders/Labs/Meds Labs: Laboratory Tests 10/27/18 10/27/18 10/27/18 Range/Units 14:06 14:06 14:06 WBC 17.9 H (4.5-12.0) X10-3/uL RBC 5.38 H (3.23-5.20) x10(6)uL Hgb 15.4 (11.5-15.5) g/dL Hct 46.4 (30.0-51.3) % MCV 86.3 (80-96) fL MCH 28.6 (27.7-33.6) pg MCHC 33.1 (32.2-35.4) g/dL RDW 13.3 (11.5-15.5) % Plt Count 263 (125-369) X10(3)uL MPV 9.7 (7.4-10.4) fL Neut % (Auto) 55.1 (46-82) % Lymph % (Auto) 36.2 (13-37) % [place] % (Auto) 7.1 (4-12) % Eos % (Auto) 1 (1.0-5.0) % Baso % (Auto) 1 (0-2) % Neut # (Auto) 9.8 H (1.6-8.3) # Lymph # (Auto) 6.5 H (0.6-5.0) # [place] # (Auto) 1.3 (0.0-1.3) # Eos # (Auto) 0.1 (0.0-0.8) # Baso # (Auto) 0.2 (0.0-0.2) # Sodium 144 (135-145) mmol/L Potassium 3.1 L (3.5-5.3) mmol/L Chloride 105 (100-110) mmol/L Carbon Dioxide 27 (21-32) mmol/L BUN 11 (7-18) mg/dL Creatinine 1.0 (0.55-1.02) mg/dL Est Cr Clr Drug Dosing 55.86 mL/min Estimated GFR (MDRD) > 60 (>60) BUN/Creatinine Ratio 11.0 (9-20) Glucose 150 H (80-116) mg/dL Calcium 9.4 (8.6-10.2) mg/dL C-Reactive Protein 1.1 H (0.5-0.9) mg/dL Meds: Medications Discontinued Medications Generic Name Dose Route Start Last Admin Trade Name Freq PRN Reason Stop Dose Admin Ondansetron HCl 8 mg 10/27/18 13:54 10/27/18 14:09 Zofran Odt PO 10/27/18 13:55 8 mg ONETIME ONE Administration - Re-Assessments/Exams Free Text/Narrative Re-Assessment/Exam: 10/27/18 patient feeling (and looking) much better after zofran labs reviewed, elevated WBCs, no left shift, CRP just barely above normal. BMP shows slightly low potassium and elevated glucose discussed results with patient - given her symptoms I suspect at this point she has a viral illness that is causing the diarrhea. Overall she looks to be moving a bit better than two days ago with her back although I understand she is still in a lot of pain. Flexeril has not helped, offered to try switch to baclofen. Unable to use steroids because of diabetes. Strongly recommend physical therapy, which she is agreeable too, but referral needs to be placed by someone who can provide some sort of followup. Discussed at length inflammatory cycle of injury and reassurance that she should feel better by Monday. She requested a return to work note, which I declined to provide as this should not be done until she is feeling better. Given zofran script for nausea, also discussed low potassium, she has supplements at home which she only takes when instructed, so recommended taking for 5-7 days. After some conversation I suspect her dietary intake is not very high, and likely she is losing a bit in her diarrhea. Also continue replacing fluids. Strongly encouraged to followup and establish with a PCP. She states she plans to go to [place]. She has received some prescriptions from a couple clinicians here, which may also be an option. Departure - Departure Time of Disposition: 15:04 Disposition: Home, Self-Care 01 Condition: Good Clinical Impression: Diarrhea, Hypokalemia Back pain Qualifiers: Back pain location: low back pain Chronicity: acute Back pain laterality: left Sciatica presence: without sciatica Qualified Code(s): M54.5 - Low back pain - Discharge Information *PRESCRIPTION DRUG MONITORING PROGRAM REVIEWED*: Yes *COPY OF PRESCRIPTION DRUG MONITORING REPORT IN PATIENT PAULA: No Prescriptions: Baclofen 10 mg PO Q8H PRN 7 Days #12 tablet PRN Reason: Pain Ondansetron [Zofran] 4 - 8 mg PO Q6H 30 Days #20 tab Referrals: PCP,None [Primary Care Provider] - Melanie Shaffer NP [Nurse Practitioner] - Tameka Thurman NP [Nurse Practitioner] - Forms: ED Department Discharge Additional Instructions: be sure to establish with a primary care provider - need someone to check on diabetes!!! sugar a little high today Low Potassium - use supplements for next 5-7 days to replenish. Likely related to diarrhea and low dietary intake the diarrhea is most likely related to a viral infection and should resolve on its own in the next few days. Be sure to drink a lot to replace the fluid you are loosing nausea - script for zofran written. You can split the tabs if you want and just take 4mg you could also try an antacid like tums or pepcid/zantac/generic equivalent and see if that helps back pain: new script given for baclofen to try as a muscle relaxer should be improved by Monday followup at acute care clinic for release back to work and physical therapy referral
== END 2018-10-27 15:15 | disposition home or self-care (01) ==
LOC: FB.ED 13:12
DX: M54.5 Low back pain (principal); R19.7 Diarrhea, unspecified; E87.6 Hypokalemia; F41.9 Anxiety disorder, unspecified; F32.9 Major depressive disorder, single episode, unspecified; Z87.891 Personal history of nicotine dependence; Z88.5 Allergy status to narcotic agent; Y99.0 Civilian activity done for income or pay
CPT/HCPCS: 36415; 80048; 85025; 86140; 99283; A9270

== ENCOUNTER 2018-11-03 16:44 | Emergency (ER) | payer OTHER ==
[2018-11-03] MEDS ORDERED: Acetaminophen/HYDROcodone 325-5 MG Tab PO ONE (16:45)
[2018-11-03] MEDS ORDERED: Sodium Chloride 0.9% 10 ML Syringe FLUSH PRN (17:28)
[2018-11-03] MEDS ORDERED: HYDROmorphone 2 MG/ML SDV IVPUSH ONE ×2 (17:33→18:13)
--- NOTE | 2018-11-03 17:34 | EDM.PDOC ---
ED HPI GENERAL MEDICAL PROBLEM - General Chief Complaint: Abdominal Pain Stated Complaint: POSSIBLE COLITIS Time Seen by Provider: 11/03/18 17:29 Source of Information: Reports: Patient History Limitations: Reports: No Limitations - History of Present Illness INITIAL COMMENTS - FREE TEXT/NARRATIVE: Presents with worsening left mid abdominal pain since yesterday and diarrhea x 1 week. Treated by PMD yesterday, c-diff was negative, diagnosed with colitis and prescribed Augmentin 875 bid. Also complains of nausea, but no vomiting. History of appendectomy, cholecystectomy and hysterectomy. Onset Date: 11/02/18 Duration: Day(s): (2) Location: Reports: Abdomen Quality: Reports: Dull Severity: Moderate - Related Data Allergies Allergy/AdvReac Type Severity Reaction Status Date / Time ketorolac [From Toradol] Allergy Respiratory Verified 11/03/18 17:27 Distress ketorolac tromethamine Allergy Tachycardia Verified 11/03/18 17:27 [From Toradol] steroid Allergy Respiratory Uncoded 11/03/18 17:27 Distress Home Meds: Home Meds Amoxicillin/Clavulanate K [Augmentin 875-125 MG] 1 tab PO BID 11/03/18 [History] metroNIDAZOLE [Flagyl] 500 mg PO TID #30 tab 11/03/18 [Rx] Past Medical History Cardiovascular History: Reports: Hypertension Gastrointestinal History: Reports: Other (See Below) Other Gastrointestinal History: hx ulcerative colitis Genitourinary History: Reports: Renal Calculus Other Genitourinary History: Kidney stones 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 Endocrine/Metabolic History: Reports: Diabetes, Type II, Obesity/BMI 30+ Other Endocrine/Metabolic History: takes metformin /denied taking any meds at this time, is diet controlled. Dermatologic History: Reports: Other (See Below) Other Dermatologic History: States she was MRSA positive in November 2017. - Infectious Disease History Infectious Disease History: Reports: Chicken Pox, MRSA - Past Surgical History HEENT Surgical History: Reports: Adenoidectomy, Oral Surgery, Tonsillectomy Cardiovascular Surgical History: Reports: None GI Surgical History: Reports: Appendectomy, Cholecystectomy, Colonoscopy Female Surgical History: Reports: Hysterectomy, Other (See Below) Other Female Surgeries/Procedures: vag hyst Social & Family History - Family History Family Medical History: Noncontributory - Tobacco Use Smoking Status *Q: Current Every Day Smoker Tobacco Use Within Last Twelve Months: Cigarettes - Caffeine Use Caffeine Use: Reports: None - Alcohol Use Alcohol Use History: No - Living Situation & Occupation Occupation: Employed (Works at [employer]) ED ROS GENERAL - Review of Systems Review Of Systems: ROS reveals no pertinent complaints other than HPI. ED EXAM, GI/ABD - Physical Exam Exam: See Below Exam Limited By: No Limitations General Appearance: Alert, WD/WN, No Apparent Distress Ears: Normal External Exam Nose: Normal Inspection Throat/Mouth: No Airway Compromise Head: Atraumatic, Normocephalic Neck: Normal Inspection Respiratory/Chest: No Respiratory Distress, Lungs Clear, Normal Breath Sounds Cardiovascular: Regular Rate, Rhythm, No Murmur GI/Abdominal Exam: Normal Bowel Sounds, Soft, Tender (moderate left mid) Back Exam: Normal Inspection, Full Range of Motion. No: CVA Tenderness (R), CVA Tenderness (L) Extremities: Normal Inspection Neurological: Alert, Normal Cognition, No Motor/Sensory Deficits Psychiatric: Normal Affect, Normal Mood Skin Exam: Warm, Dry, Normal Color, No Rash Course - Vital Signs Last Recorded V/S: Last Vital Signs Temp 37.1 C 11/03/18 16:44 Pulse 94 11/03/18 16:44 Resp 18 11/03/18 16:44 BP 112/72 11/03/18 16:44 Pulse Ox 96 11/03/18 16:44 - Orders/Labs/Meds Orders: Active Orders 24 hr Category Date Time Status Abdomen Pelvis w Cont [CT] Stat Exams 11/03/18 18:13 Taken Sodium Chloride 0.9% [Saline Flush] Med 11/03/18 17:28 Active 10 ml FLUSH ASDIRECTED PRN Saline Lock Insert [OM.PC] Routine Oth 11/03/18 17:28 Ordered Medication Orders Sodium Chloride (Saline Flush) 10 ml FLUSH ASDIRECTED PRN PRN Reason: Keep Vein Open Last Admin: 11/03/18 17:58 Dose: 10 ml Labs: Laboratory Tests 11/03/18 11/03/18 11/03/18 Range/Units 17:35 17:35 18:46 WBC 9.1 (4.5-12.0) X10-3/uL RBC 4.36 (3.23-5.20) x10(6)uL Hgb 12.9 (11.5-15.5) g/dL Hct 37.2 (30.0-51.3) % MCV 85.3 (80-96) fL MCH 29.7 (27.7-33.6) pg MCHC 34.8 (32.2-35.4) g/dL RDW 13.1 (11.5-15.5) % Plt Count 169 (125-369) X10(3)uL MPV 9.7 (7.4-10.4) fL Neut % (Auto) 63.9 (46-82) % Lymph % (Auto) 29.2 (13-37) % [place] % (Auto) 5.9 (4-12) % Eos % (Auto) 1 (1.0-5.0) % Baso % (Auto) 0 (0-2) % Neut # (Auto) 5.8 (1.6-8.3) # Lymph # (Auto) 2.7 (0.6-5.0) # [place] # (Auto) 0.5 (0.0-1.3) # Eos # (Auto) 0.1 (0.0-0.8) # Baso # (Auto) 0.0 (0.0-0.2) # Sodium 142 (135-145) mmol/L Potassium 3.4 L (3.5-5.3) mmol/L Chloride 103 (100-110) mmol/L Carbon Dioxide 25 (21-32) mmol/L BUN 14 (7-18) mg/dL Creatinine 0.8 (0.55-1.02) mg/dL Est Cr Clr Drug Dosing TNP Estimated GFR (MDRD) > 60 (>60) BUN/Creatinine Ratio 17.5 (9-20) Glucose 148 H (80-116) mg/dL Calcium 9.1 (8.6-10.2) mg/dL Total Bilirubin 0.2 (0.1-1.3) mg/dL AST 53 H D (5-25) IU/L ALT 85 H D (12-36) U/L Alkaline Phosphatase 69 (56-112) IU/L Total Protein 6.9 (6.0-8.0) g/dL Albumin 3.3 L (3.5-5.2) g/dL Globulin 3.6 g/dL Albumin/Globulin Ratio 0.9 Amylase 48 (25-115) U/L Urine Color Yellow (YELLOW) Urine Appearance Cloudy (CLEAR) Urine pH 5.0 (5.0-6.5) Ur Specific [place] 1.020 (1.010-1.025) Urine Protein Negative (NEGATIVE) mg/dL Urine Glucose (UA) Normal (NORMAL) mg/dL Urine Ketones Negative (NEGATIVE) mg/dL Urine Occult Blood Negative (NEGATIVE) Urine Nitrite Negative (NEGATIVE) Urine Bilirubin Negative (NEGATIVE) Urine Urobilinogen Normal (NEGATIVE) mg/dL Ur Leukocyte Esterase Negative (NEGATIVE) Urine RBC 0-5 (0-5) Urine WBC 0-5 (0-5) Ur Squamous Epith Cells Moderate H (NS,R,O) Amorphous Sediment Few Urine Bacteria Moderate H (NS) Meds: Medications Generic Name Dose Route Start Last Admin Trade Name Freq PRN Reason Stop Dose Admin Sodium Chloride 10 ml 11/03/18 17:28 11/03/18 17:58 Saline Flush FLUSH 10 ml ASDIRECTED PRN Administration Keep Vein Open Discontinued Medications Generic Name Dose Route Start Last Admin Trade Name Freq PRN Reason Stop Dose Admin Diphenhydramine HCl 25 mg 11/03/18 18:50 11/03/18 18:59 Benadryl IVPUSH 11/03/18 18:51 25 mg ONETIME ONE Administration Hydromorphone HCl 0.5 mg 11/03/18 17:33 11/03/18 17:55 Dilaudid IVPUSH 11/03/18 17:34 0.5 mg ONETIME ONE Administration Hydromorphone HCl 0.5 mg 11/03/18 18:13 11/03/18 18:58 Dilaudid IVPUSH 11/03/18 18:14 0.5 mg ONETIME ONE Administration Iopamidol 100 ml 11/03/18 18:29 11/03/18 18:42 Isovue-370 (76%) IV 11/03/18 18:30 100 ml . DIRECTED ONE Administration - Radiology Interpretation Free Text/Narrative:: CT Abd/Pelvis w/ IV contrast: No acute abnormalities Departure - Departure Time of Disposition: 19:36 Disposition: Home, Self-Care 01 Condition: Good Clinical Impression: Abdominal pain in female Diarrhea Qualifiers: Diarrhea type: unspecified type Qualified Code(s): R19.7 - Diarrhea, unspecified - Discharge Information *PRESCRIPTION DRUG MONITORING PROGRAM REVIEWED*: Yes *COPY OF PRESCRIPTION DRUG MONITORING REPORT IN PATIENT PAULA: No Prescriptions: metroNIDAZOLE [Flagyl] 500 mg PO TID #30 tab Instructions: Diarrhea, Adult, Abdominal Pain, Adult, [id number] Referrals: Francisco Mendes MD [Primary Care Provider] - Forms: ED Department Discharge Additional Instructions: Fill the Flagyl prescription tomorrow at [facility] in [place] and take as directed. Take the [place] as directed. Continue the Augmentin. Follow up with your primary physician in 3 days if symptoms don't improve. Return to the ER if symptoms worsen. - My Orders Last 24 Hours: My Active Orders 11/03/18 17:28 Sodium Chloride 0.9% [Saline Flush] 10 ml FLUSH ASDIRECTED PRN Saline Lock Insert [OM.PC] Routine 11/03/18 18:13 Abdomen Pelvis w Cont [CT] Stat - Assessment/Plan Last 24 Hours: My Active Orders 11/03/18 17:28 Sodium Chloride 0.9% [Saline Flush] 10 ml FLUSH ASDIRECTED PRN Saline Lock Insert [OM.PC] Routine 11/03/18 18:13 Abdomen Pelvis w Cont [CT] Stat
[2018-11-03] MEDS ORDERED: Iopamidol 755 Mg/ML 100 ML Bottle IV ONE (18:29)
[2018-11-03] MEDS ORDERED: diphenhydrAMINE 50 MG/ML SDV IVPUSH ONE (18:50)
[2018-11-03] MEDS ORDERED: metroNIDAZOLE 500 MG Tab PO ONE (19:47)
[2018-11-03 20:04] VITALS: BP 127/103
== END 2018-11-03 20:00 | disposition home or self-care (01) ==
LOC: FB.ED 16:44
DX: R19.7 Diarrhea, unspecified (principal); E11.9 Type 2 diabetes mellitus without complications; E66.9 Obesity, unspecified; F41.9 Anxiety disorder, unspecified; F32.9 Major depressive disorder, single episode, unspecified; I10 Essential (primary) hypertension; F17.210 Nicotine dependence, cigarettes, uncomplicated; Z88.5 Allergy status to narcotic agent; Z79.899 Other long term (current) drug therapy; Z68.34 Body mass index [BMI] 34.0-34.9, adult
CPT/HCPCS: 36415; 74177; 80053; 81001; 82150; 85025; 96374; 96375; 96376; 99284; A9270; J1170; J1200; Q9967

== ENCOUNTER 2018-11-05 15:21 | Emergency (ER) | payer OTHER ==
[2018-11-05] MEDS ORDERED: Sodium Chloride 0.9% 10 ML Syringe FLUSH PRN (15:45)
[2018-11-05] MEDS ORDERED: Sodium Chloride 0.9% 1,000 ML IV SCH (15:45)
[2018-11-05] MEDS ORDERED: Ondansetron 4 MG/2 ML SDV IVPUSH ONE (15:46)
--- NOTE | 2018-11-05 15:50 | EDM.PDOC ---
ED HPI GENERAL MEDICAL PROBLEM - General Chief Complaint: Gastrointestinal Problem Stated Complaint: LOWER ABD PAIN, Time Seen by Provider: 11/05/18 15:30 Source of Information: Reports: Patient, Old Records History Limitations: Reports: No Limitations - History of Present Illness INITIAL COMMENTS - FREE TEXT/NARRATIVE: Hillary returns to [facility] ED with ongoing sxs of nausea and vomiting over the past week, with multiple diarrheal stools with mucous and some elements of suspected blood. There have been L sided abdominal cramping, with radiation into the back. She was seen in the ED on November 03, medical work up included normal CBC , CMP noted mild elevations of LFTs, and UA. A SFOB was positive. An Abdominal CT w contrast was reportedly negative as compared to 09/1418. She was on Augmentin 875 mg po per PCP, and Flagyl 500 mg was added for presumptive colitis. Of interest was a colonscopy performed in 04/13/15 for abdominal pain at [place], [place]. LEFT UPPER ABDOMEN Pain Score (Numeric/FACES): 7 - Related Data Allergies Allergy/AdvReac Type Severity Reaction Status Date / Time ketorolac [From Toradol] Allergy Respiratory Verified 11/05/18 15:43 Distress ketorolac tromethamine Allergy Tachycardia Verified 11/05/18 15:43 [From Toradol] steroid Allergy Respiratory Uncoded 11/05/18 15:43 Distress Home Meds: Home Meds Amoxicillin/Clavulanate K [Augmentin 875-125 MG] 1 tab PO BID 11/03/18 [History] metroNIDAZOLE [Flagyl] 500 mg PO TID #30 tab 11/03/18 [Rx] Past Medical History Cardiovascular History: Reports: Hypertension Gastrointestinal History: Reports: Other (See Below) Other Gastrointestinal History: hx ulcerative colitis Genitourinary History: Reports: Renal Calculus Other Genitourinary History: Kidney stones MANAGER SHELL History: Reports: Other MANAGER SHELL History: Musculoskeletal History: Reports: Back Pain, Chronic Psychiatric History: Reports: Anxiety, Depression Other Psychiatric History: . Endocrine/Metabolic History: Reports: Diabetes, Type II, Obesity/BMI 30+ Other Endocrine/Metabolic History: takes metformin /denied taking any meds at this time, is diet controlled. Dermatologic History: Reports: Other (See Below) Other Dermatologic History: States she was MRSA positive in November 2017. - Infectious Disease History Infectious Disease History: Reports: Chicken Pox, MRSA - Past Surgical History HEENT Surgical History: Reports: Adenoidectomy, Oral Surgery, Tonsillectomy Cardiovascular Surgical History: Reports: None GI Surgical History: Reports: Appendectomy, Cholecystectomy, Colonoscopy Female Surgical History: Reports: Hysterectomy, Other (See Below) Other Female Surgeries/Procedures: vag hyst Social & Family History - Family History Family Medical History: Noncontributory - Caffeine Use Caffeine Use: Reports: None - Living Situation & Occupation Occupation: Employed (Works at [employer] ED ROS GENERAL - Review of Systems Review Of Systems: See Below Constitutional: Reports: Decreased Appetite HEENT: Reports: No Symptoms Respiratory: Reports: No Symptoms Cardiovascular: Reports: No Symptoms Endocrine: Reports: No Symptoms GI/Abdominal: Reports: Abdominal Pain, Diarrhea, Decreased Appetite, Nausea, Vomiting : Reports: No Symptoms Musculoskeletal: Reports: No Symptoms Skin: Reports: No Symptoms Neurological: Reports: No Symptoms Psychiatric: Reports: No Symptoms Hematologic/Lymphatic: Reports: No Symptoms Immunologic: Reports: No Symptoms ED EXAM, GI/ABD - Physical Exam Exam: See Below Exam Limited By: No Limitations General Appearance: Alert, WD/WN, No Apparent Distress, Anxious Eyes: Bilateral: Normal Appearance, EOMI Ears: Normal External Exam Nose: Normal Inspection Throat/Mouth: Normal Inspection, Normal Oropharynx Head: Atraumatic, Normocephalic Neck: Normal Inspection, Supple Respiratory/Chest: No Respiratory Distress, Lungs Clear, Normal Breath Sounds, No Accessory Muscle Use Cardiovascular: Normal Peripheral Pulses, Regular Rate, Rhythm, No Murmur GI/Abdominal Exam: Normal Bowel Sounds, Soft, No Organomegaly, No Distention, No Mass, Tender (LLQ with some guarding) (Female) Exam: Deferred Rectal (Female) Exam: Deferred Back Exam: Normal Inspection Extremities: Normal Inspection Neurological: Alert, Oriented, CN II-XII Intact, Normal Cognition, Normal Gait, No Motor/Sensory Deficits Psychiatric: Normal Affect, Anxious Skin Exam: Warm, Dry, Intact, Normal Color, No Rash Lymphatic: No Adenopathy Course - Vital Signs Text/Narrative:: Following assessment at the [facility] ED, an IV was started in the RUE, and 1L of NS and 1L of D5LR was administered over the next 2 hours. No vomiting or diarrhea during ED visit. Screening labs were unchanaged, with CRP 3.0 mildly elevated. Case was discussed with Dr Montalvo regarding management, and he is available to see her if any change in status overnight. Patient opted to go home, and follow up tomorrow. A urine drug screen was positive for opioids. Last Recorded V/S: Last Vital Signs Temp 36.8 C 11/05/18 18:25 Pulse 80 11/05/18 18:25 Resp 16 11/05/18 18:25 BP 116/65 11/05/18 18:25 Pulse Ox 100 11/05/18 18:25 - Orders/Labs/Meds Orders: Active Orders 24 hr Category Date Time Status Peripheral IV Insertion Adult [OM.PC] Routine Oth 11/05/18 15:45 Ordered Labs: Laboratory Tests 11/05/18 11/05/18 11/05/18 Range/Units 15:55 15:55 16:05 WBC 9.5 (4.5-12.0) X10-3/uL RBC 4.64 (3.23-5.20) x10(6)uL Hgb 13.3 (11.5-15.5) g/dL Hct 39.7 (30.0-51.3) % MCV 85.6 (80-96) fL MCH 28.7 (27.7-33.6) pg MCHC 33.5 (32.2-35.4) g/dL RDW 13.5 (11.5-15.5) % Plt Count 200 (125-369) X10(3)uL MPV 9.7 (7.4-10.4) fL Neut % (Auto) 68.1 (46-82) % Lymph % (Auto) 25.5 (13-37) % Stone % (Auto) 5.2 (4-12) % Eos % (Auto) 1 (1.0-5.0) % Baso % (Auto) 0 (0-2) % Neut # (Auto) 6.5 (1.6-8.3) # Lymph # (Auto) 2.4 (0.6-5.0) # Stone # (Auto) 0.5 (0.0-1.3) # Eos # (Auto) 0.1 (0.0-0.8) # Baso # (Auto) 0.0 (0.0-0.2) # ESR 12 (0-20) mm/hr Sodium (135-145) mmol/L Potassium (3.5-5.3) mmol/L Chloride (100-110) mmol/L Carbon Dioxide (21-32) mmol/L BUN (7-18) mg/dL Creatinine (0.55-1.02) mg/dL Est Cr Clr Drug Dosing mL/min Estimated GFR (MDRD) (>60) BUN/Creatinine Ratio (9-20) Glucose (80-116) mg/dL Lactic Acid (0.4-2.2) mmol/L Calcium (8.6-10.2) mg/dL Total Bilirubin (0.1-1.3) mg/dL AST (5-25) IU/L ALT (12-36) U/L Alkaline Phosphatase (56-112) IU/L C-Reactive Protein (0.5-0.9) mg/dL Total Protein (6.0-8.0) g/dL Albumin (3.5-5.2) g/dL Globulin g/dL Albumin/Globulin Ratio Amylase (25-115) U/L Urine Color Yellow (YELLOW) Urine Appearance Clear (CLEAR) Urine pH 8.0 H (5.0-6.5) Ur Specific Garber 1.010 (1.010-1.025) Urine Protein Negative (NEGATIVE) mg/dL Urine Glucose (UA) Normal (NORMAL) mg/dL Urine Ketones Negative (NEGATIVE) mg/dL Urine Occult Blood Large H (NEGATIVE) Urine Nitrite Negative (NEGATIVE) Urine Bilirubin Negative (NEGATIVE) Urine Urobilinogen Normal (NEGATIVE) mg/dL Ur Leukocyte Esterase Negative (NEGATIVE) Urine RBC 30-40 H (0-5) Urine WBC 0-5 (0-5) Ur Squamous Epith Cells Few H (NS,R,O) Urine Bacteria Few H (NS) Urine Opiates Screen Positive H (NEGATIVE) Ur Oxycodone Screen Negative (NEGATIVE) Ur Propoxyphene Screen Negative (NEGATIVE) Ur Barbituates Screen Negative (NEGATIVE) Ur Tricyclics Screen Negative (NEGATIVE) Ur Phencyclidine Scrn Negative (NEGATIVE) Ur Amphetamine Screen Negative (NEGATIVE) Urine MDMA Screen Negative (NEGATIVE) U Benzodiazepines Scrn Negative (NEGATIVE) U Cocaine Metab Screen Negative (NEGATIVE) U Marijuana (THC) Screen Negative (NEGATIVE) 11/05/18 11/05/18 11/05/18 Range/Units 16:05 16:05 16:05 WBC (4.5-12.0) X10-3/uL RBC (3.23-5.20) x10(6)uL Hgb (11.5-15.5) g/dL Hct (30.0-51.3) % MCV (80-96) fL MCH (27.7-33.6) pg MCHC (32.2-35.4) g/dL RDW (11.5-15.5) % Plt Count (125-369) X10(3)uL MPV (7.4-10.4) fL Neut % (Auto) (46-82) % Lymph % (Auto) (13-37) % Stone % (Auto) (4-12) % Eos % (Auto) (1.0-5.0) % Baso % (Auto) (0-2) % Neut # (Auto) (1.6-8.3) # Lymph # (Auto) (0.6-5.0) # Stone # (Auto) (0.0-1.3) # Eos # (Auto) (0.0-0.8) # Baso # (Auto) (0.0-0.2) # ESR (0-20) mm/hr Sodium 139 (135-145) mmol/L Potassium 4.0 (3.5-5.3) mmol/L Chloride 102 (100-110) mmol/L Carbon Dioxide 27 (21-32) mmol/L BUN 8 (7-18) mg/dL Creatinine 0.7 (0.55-1.02) mg/dL Est Cr Clr Drug Dosing 79.80 mL/min Estimated GFR (MDRD) > 60 (>60) BUN/Creatinine Ratio 11.4 (9-20) Glucose 91 (80-116) mg/dL Lactic Acid 2.8 H (0.4-2.2) mmol/L Calcium 9.4 (8.6-10.2) mg/dL Total Bilirubin 0.2 (0.1-1.3) mg/dL AST 69 H D (5-25) IU/L ALT 119 H D (12-36) U/L Alkaline Phosphatase 75 (56-112) IU/L C-Reactive Protein 3.0 H* (0.5-0.9) mg/dL Total Protein 7.6 (6.0-8.0) g/dL Albumin 3.7 (3.5-5.2) g/dL Globulin 3.9 g/dL Albumin/Globulin Ratio 1.0 Amylase 42 (25-115) U/L Urine Color (YELLOW) Urine Appearance (CLEAR) Urine pH (5.0-6.5) Ur Specific Garber (1.010-1.025) Urine Protein (NEGATIVE) mg/dL Urine Glucose (UA) (NORMAL) mg/dL Urine Ketones (NEGATIVE) mg/dL Urine Occult Blood (NEGATIVE) Urine Nitrite (NEGATIVE) Urine Bilirubin (NEGATIVE) Urine Urobilinogen (NEGATIVE) mg/dL Ur Leukocyte Esterase (NEGATIVE) Urine RBC (0-5) Urine WBC (0-5) Ur Squamous Epith Cells (NS,R,O) Urine Bacteria (NS) Urine Opiates Screen (NEGATIVE) Ur Oxycodone Screen (NEGATIVE) Ur Propoxyphene Screen (NEGATIVE) Ur Barbituates Screen (NEGATIVE) Ur Tricyclics Screen (NEGATIVE) Ur Phencyclidine Scrn (NEGATIVE) Ur Amphetamine Screen (NEGATIVE) Urine MDMA Screen (NEGATIVE) U Benzodiazepines Scrn (NEGATIVE) U Cocaine Metab Screen (NEGATIVE) U Marijuana (THC) Screen (NEGATIVE) Meds: Medications Discontinued Medications Generic Name Dose Route Start Last Admin Trade Name Freq PRN Reason Stop Dose Admin Sodium Chloride 1,000 mls @ 999 mls/hr 11/05/18 15:45 11/05/18 16:20 Normal Saline IV 999 mls/hr ASDIRECTED LYNETTE Administration Dextrose/Lactated Ringer's 1,000 mls @ 999 mls/hr 11/05/18 17:15 11/05/18 17: 24 Dextrose 5%-Lactated Ringers IV 999 mls/hr ASDIRECTED LYNETTE Administration Ondansetron HCl 4 mg 11/05/18 15:46 11/05/18 16:22 Zofran IVPUSH 11/05/18 15:47 4 mg ONETIME ONE Administration Sodium Chloride 10 ml 11/05/18 15:45 11/05/18 16:20 Saline Flush FLUSH 10 ml ASDIRECTED PRN Administration Keep Vein Open Departure - Departure Time of Disposition: 18:20 Disposition: Home, Self-Care 01 Condition: Fair Clinical Impression: Abdominal pain - Discharge Information *PRESCRIPTION DRUG MONITORING PROGRAM REVIEWED*: Not Applicable *COPY OF PRESCRIPTION DRUG MONITORING REPORT IN PATIENT PAULA: Not Applicable Instructions: Viral Gastroenteritis, Adult, [id number], Abdominal Pain, Adult , [id number] Referrals: Melanie Shaffer, [employer] [Primary Care Provider] - Forms: ED Department Discharge Additional Instructions: NOTHING BY MOUTH AFTER 12MN. IF PAIN COMES WORST GO BACK TO ER, OTHERWISE SET AN APPOINTMENT TO SEE DR. MONTALVO TOMORROW. - Problem List & Annotations (1) Abdominal pain SNOMED Code(s): 85158545 Code(s): R10.9 - UNSPECIFIED ABDOMINAL PAIN Status: Acute Annotation/ Comment:: Hillary elected to go home after the IVs, and follow up tomorrow. I advised her clear liquids only, NPO after midnight, and call in tomorrow.. She may use Tylenol Supp for pain managment. Her DS was positive for opioids. - Problem List Review Problem List Initiated/Reviewed/Updated: Yes - My Orders Last 24 Hours: My Active Orders 11/05/18 15:45 Peripheral IV Insertion Adult [OM.PC] Routine - Assessment/Plan Last 24 Hours: My Active Orders 11/05/18 15:45 Peripheral IV Insertion Adult [OM.PC] Routine Plan: Follow up with surgeon or ED if sxs escalate overnight.
[2018-11-05] MEDS ORDERED: Dextrose 5%-Lactated Ringers 1,000 ML IV SCH (17:15)
[2018-11-05 18:41] VITALS: BP 116/65
== END 2018-11-05 18:30 | disposition home or self-care (01) ==
LOC: FB.ED 15:21
DX: R10.32 Left lower quadrant pain (principal); I10 Essential (primary) hypertension; E11.9 Type 2 diabetes mellitus without complications; E66.9 Obesity, unspecified; Z98.890 Other specified postprocedural states; Z90.49 Acquired absence of other specified parts of digestive tract; Z90.710 Acquired absence of both cervix and uterus; Z88.6 Allergy status to analgesic agent; Z88.8 Allergy status to other drugs, medicaments and biological substances
CPT/HCPCS: 36415; 80053; 80305; 81001; 82150; 83605; 85025; 85651; 86140; 96361; 96374; 99284; J2405; J7030; J7042

== ENCOUNTER 2018-11-12 18:18 | Emergency (ER) | payer MEDICAID ==
[2018-11-12] MEDS ORDERED: Prochlorperazine 5 MG Tab PO ONE (18:19)
[2018-11-12] MEDS ORDERED: traMADol 50 MG Tab PO ONE (18:19)
[2018-11-12] MEDS ORDERED: Sodium Chloride 0.9% 10 ML Syringe FLUSH PRN (19:20)
[2018-11-12] MEDS ORDERED: Ondansetron 4 MG/2 ML SDV IVPUSH ONE (19:22)
[2018-11-12] MEDS ORDERED: Sodium Chloride 0.9% 1,000 ML IV ONE ×2 (19:22→20:37)
[2018-11-12] MEDS ORDERED: Acetaminophen 1,000 MG in Premix Bag 1 BAG IV ONE (19:22)
[2018-11-12] MEDS ORDERED: fentaNYL 100 MCG/2 ML SDV IVPUSH ONE (20:42)
[2018-11-12] MEDS ORDERED: LORazepam 2 MG/ML SDV IVPUSH ONE (20:42)
[2018-11-12 21:38] VITALS: BP 104/71
--- NOTE | 2018-11-12 22:12 | EDM.PDOC ---
ED HPI GENERAL MEDICAL PROBLEM - General Chief Complaint: Abdominal Pain Stated Complaint: COLITIS Time Seen by Provider: 11/12/18 18:55 Source of Information: Reports: Patient History Limitations: Reports: No Limitations - History of Present Illness INITIAL COMMENTS - FREE TEXT/NARRATIVE: 38-year-old female with a history of ongoing problems with abdominal pain, nausea and diarrhea for the past 6 weeks. She has been seen here multiple times over the past month for this problem. She did have a CT scan of her abdomen and pelvis performed on 11/03/2018 which was normal and failed to show the cause of the patient's abdominal pain and diarrhea. The patient was seen again on 2018 and appear to be dehydrated (her CRP was mildly elevated and her lactic acid was also mildly elevated), was treated with IV fluids and arrange to see Dr. Gallardo in follow-up and is to have a colonoscopy. Since the , she has been having continued pain with diarrhea. The diarrhea has been mucoid and nonbloody. She reports that the symptoms have been worsening since Monday or Monday of this last week. She reports she has eaten little because she feels that it just makes her have diarrhea more frequently. She has been taking liquids well. She has been urinating but with decreased amounts. She has had no fevers or chills. She has had nausea but no vomiting. She rates her pain as a 7- 8/10 at this point and feels that it is a sharp and sore pain with intermittent spasms or cramps. The pain seems to be worse when she eats and also with palpation. It is all over her left abdomen and left flank area. She is also having intermittent dizziness. There are no other associated signs or symptoms. There are no other modifying factors. 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 L abdomen & back Pain Score (Numeric/FACES): 7 - Related Data Allergies Allergy/AdvReac Type Severity Reaction Status Date / Time ketorolac [From Toradol] Allergy Respiratory Verified 11/12/18 18:29 Distress ketorolac tromethamine Allergy Tachycardia Verified 11/12/18 18:29 [From Toradol] steroid Allergy Respiratory Uncoded 11/12/18 18:29 Distress Home Meds: Home Meds NK [No Known Home Meds] 11/12/18 [History] Past Medical History Cardiovascular History: Reports: Hypertension Gastrointestinal History: Reports: Other (See Below) (Has had colitis in the past per the patient's report) Genitourinary History: Reports: Renal Calculus Other Genitourinary History: Kidney stones 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 Endocrine/Metabolic History: Reports: Diabetes, Type II (Diet-controlled), Obesity/BMI 30+ Dermatologic History: Reports: Other (See Below) Other Dermatologic History: States she was MRSA positive in November 2017. - Infectious Disease History Infectious Disease History: Reports: Chicken Pox, MRSA - Past Surgical History HEENT Surgical History: Reports: Adenoidectomy, Oral Surgery, Tonsillectomy GI Surgical History: Reports: Appendectomy, Cholecystectomy, Colonoscopy Female Surgical History: Reports: Hysterectomy, Other (See Below) Other Female Surgeries/Procedures: vag hyst Social & Family History - Tobacco Use Smoking Status *Q: Current Every Day Smoker Years of Tobacco use: 10 Packs/Tins Daily: 0.3 - Caffeine Use Caffeine Use: Reports: Coffee, Soda, Tea - Alcohol Use Alcohol Use History: No - Recreational Drug Use Recreational Drug Use: No - Living Situation & Occupation Occupation: Employed (Works at [employer] ED ROS GENERAL - Review of Systems Review Of Systems: See Below Constitutional: Reports: Malaise, Fatigue, Decreased Appetite HEENT: Reports: No Symptoms Respiratory: Reports: No Symptoms Cardiovascular: Reports: No Symptoms Endocrine: Reports: No Symptoms GI/Abdominal: Reports: Abdominal Pain, Diarrhea, Nausea : Reports: Flank Pain (Left side/flank pain) Musculoskeletal: Reports: Back Pain (Chronic) Skin: Reports: No Symptoms Neurological: Reports: Dizziness Hematologic/Lymphatic: Reports: No Symptoms Immunologic: Reports: No Symptoms ED EXAM, GI/ABD - Physical Exam Exam: See Below Exam Limited By: No Limitations General Appearance: Alert, Moderate Distress, Obese Eyes: Bilateral: Normal Appearance, EOMI Ears: Normal External Exam Nose: Normal Inspection, Normal Mucosa, No Blood Throat/Mouth: Normal Voice, No Airway Compromise, Other (Dry mucous membranes) Head: Atraumatic, Normocephalic Neck: Normal Inspection, Supple, Non-Tender, Full Range of Motion Respiratory/Chest: No Respiratory Distress, Lungs Clear, Normal Breath Sounds, No Accessory Muscle Use, Chest Non-Tender Cardiovascular: Normal Peripheral Pulses, Regular Rate, Rhythm, No JVD GI/Abdominal Exam: Normal Bowel Sounds, Soft, No Mass, Tender (Tender over left abdomen and flank area.), Other (2 brought). No: Rebound Back Exam: Normal Inspection Extremities: Normal Inspection, Normal Range of Motion, Non-Tender, No Pedal Edema, Normal Capillary Refill Neurological: Alert, Oriented, CN II-XII Intact, Normal Cognition, No Motor/ Sensory Deficits Skin Exam: Warm, Dry, Intact, Normal Color, No Rash Course - Vital Signs Last Recorded V/S: Last Vital Signs Temp 36.9 C 11/12/18 18:25 Pulse 87 11/12/18 20:54 Resp 16 11/12/18 20:54 BP 104/71 11/12/18 20:54 Pulse Ox 94 L 11/12/18 20:54 Orthostatic Blood Pressure [ 104/72 Standing] Orthostatic Blood Pressure [ 105/75 Sitting] Orthostatic Blood Pressure [ 92/65 Supine] - Orders/Labs/Meds Orders: Active Orders 24 hr Category Date Time Status Sodium Chloride 0.9% [Saline Flush] Med 11/12/18 19:20 Active 10 ml FLUSH ASDIRECTED PRN Peripheral IV Insertion Adult [OM.PC] Routine Oth 11/12/18 19:20 Ordered Medication Orders Sodium Chloride (Saline Flush) 10 ml FLUSH ASDIRECTED PRN PRN Reason: Keep Vein Open Labs: Laboratory Tests 11/12/18 11/12/18 11/12/18 Range/Units 19:20 19:30 19:30 WBC 12.8 H (4.5-12.0) X10-3/uL RBC 4.44 (3.23-5.20) x10(6)uL Hgb 13.0 (11.5-15.5) g/dL Hct 37.8 (30.0-51.3) % MCV 85.1 (80-96) fL MCH 29.2 (27.7-33.6) pg MCHC 34.2 (32.2-35.4) g/dL RDW 13.5 (11.5-15.5) % Plt Count 213 (125-369) X10(3)uL MPV 9.5 (7.4-10.4) fL Neut % (Auto) 69.0 (46-82) % Lymph % (Auto) 26.8 (13-37) % Petroleum % (Auto) 3.3 L (4-12) % Eos % (Auto) 1 (1.0-5.0) % Baso % (Auto) 0 (0-2) % Neut # (Auto) 8.9 H (1.6-8.3) # Lymph # (Auto) 3.4 (0.6-5.0) # Petroleum # (Auto) 0.4 (0.0-1.3) # Eos # (Auto) 0.1 (0.0-0.8) # Baso # (Auto) 0.0 (0.0-0.2) # Sodium 141 (135-145) mmol/L Potassium 3.4 L (3.5-5.3) mmol/L Chloride 103 (100-110) mmol/L Carbon Dioxide 25 (21-32) mmol/L BUN 8 (7-18) mg/dL Creatinine 0.9 (0.55-1.02) mg/dL Est Cr Clr Drug Dosing 62.07 mL/min Estimated GFR (MDRD) > 60 (>60) BUN/Creatinine Ratio 8.9 L (9-20) Glucose 146 H (80-116) mg/dL Lactic Acid (0.4-2.2) mmol/L Calcium 8.8 (8.6-10.2) mg/dL Total Bilirubin 0.3 (0.1-1.3) mg/dL AST 43 H D (5-25) IU/L ALT 75 H D (12-36) U/L Alkaline Phosphatase 63 (56-112) IU/L C-Reactive Protein (0.5-0.9) mg/dL Total Protein 7.3 (6.0-8.0) g/dL Albumin 3.5 (3.5-5.2) g/dL Globulin 3.8 g/dL Albumin/Globulin Ratio 0.9 Amylase 35 (25-115) U/L Urine Color Yellow (YELLOW) Urine Appearance Clear (CLEAR) Urine pH 5.0 (5.0-6.5) Ur Specific [place] 1.030 H (1.010-1.025) Urine Protein Negative (NEGATIVE) mg/dL Urine Glucose (UA) Normal (NORMAL) mg/dL Urine Ketones Negative (NEGATIVE) mg/dL Urine Occult Blood Negative (NEGATIVE) Urine Nitrite Negative (NEGATIVE) Urine Bilirubin Negative (NEGATIVE) Urine Urobilinogen Normal (NEGATIVE) mg/dL Ur Leukocyte Esterase Negative (NEGATIVE) Urine RBC Not seen (0-5) Urine WBC 0-5 (0-5) Ur Squamous Epith Cells Moderate H (NS,R,O) Urine Bacteria Moderate H (NS) 11/12/18 11/12/18 Range/Units 19:30 19:30 WBC (4.5-12.0) X10-3/uL RBC (3.23-5.20) x10(6)uL Hgb (11.5-15.5) g/dL Hct (30.0-51.3) % MCV (80-96) fL MCH (27.7-33.6) pg MCHC (32.2-35.4) g/dL RDW (11.5-15.5) % Plt Count (125-369) X10(3)uL MPV (7.4-10.4) fL Neut % (Auto) (46-82) % Lymph % (Auto) (13-37) % Petroleum % (Auto) (4-12) % Eos % (Auto) (1.0-5.0) % Baso % (Auto) (0-2) % Neut # (Auto) (1.6-8.3) # Lymph # (Auto) (0.6-5.0) # Petroleum # (Auto) (0.0-1.3) # Eos # (Auto) (0.0-0.8) # Baso # (Auto) (0.0-0.2) # Sodium (135-145) mmol/L Potassium (3.5-5.3) mmol/L Chloride (100-110) mmol/L Carbon Dioxide (21-32) mmol/L BUN (7-18) mg/dL Creatinine (0.55-1.02) mg/dL Est Cr Clr Drug Dosing mL/min Estimated GFR (MDRD) (>60) BUN/Creatinine Ratio (9-20) Glucose (80-116) mg/dL Lactic Acid 3.0 H (0.4-2.2) mmol/L Calcium (8.6-10.2) mg/dL Total Bilirubin (0.1-1.3) mg/dL AST (5-25) IU/L ALT (12-36) U/L Alkaline Phosphatase (56-112) IU/L C-Reactive Protein 1.9 H (0.5-0.9) mg/dL Total Protein (6.0-8.0) g/dL Albumin (3.5-5.2) g/dL Globulin g/dL Albumin/Globulin Ratio Amylase (25-115) U/L Urine Color (YELLOW) Urine Appearance (CLEAR) Urine pH (5.0-6.5) Ur Specific [place] (1.010-1.025) Urine Protein (NEGATIVE) mg/dL Urine Glucose (UA) (NORMAL) mg/dL Urine Ketones (NEGATIVE) mg/dL Urine Occult Blood (NEGATIVE) Urine Nitrite (NEGATIVE) Urine Bilirubin (NEGATIVE) Urine Urobilinogen (NEGATIVE) mg/dL Ur Leukocyte Esterase (NEGATIVE) Urine RBC (0-5) Urine WBC (0-5) Ur Squamous Epith Cells (NS,R,O) Urine Bacteria (NS) Meds: Medications Generic Name Dose Route Start Last Admin Trade Name Freq PRN Reason Stop Dose Admin Sodium Chloride 10 ml 11/12/18 19:20 Saline Flush FLUSH ASDIRECTED PRN Keep Vein Open Discontinued Medications Generic Name Dose Route Start Last Admin Trade Name Freq PRN Reason Stop Dose Admin Fentanyl 100 mcg 11/12/18 20:42 11/12/18 20:51 Sublimaze IVPUSH 11/12/18 20:43 100 mcg ONETIME ONE Administration Acetaminophen 1,000 mg/ Premix 100 mls @ 400 mls/hr 11/12/18 19:22 11/12/18 19:40 IV 11/12/18 19:36 Not Given NOW ONE Sodium Chloride 1,000 mls @ 999 mls/hr 11/12/18 19:22 11/12/18 19:20 Normal Saline IV 11/12/18 20:22 999 mls/hr .BOLUS ONE Administration Sodium Chloride 1,000 mls @ 999 mls/hr 11/12/18 20:37 11/12/18 20:45 Normal Saline IV 11/12/18 21:37 999 mls/hr .BOLUS ONE Administration Lorazepam 1 mg 11/12/18 20:42 11/12/18 20:51 Ativan IVPUSH 11/12/18 20:43 1 mg ONETIME ONE Administration Ondansetron HCl 4 mg 11/12/18 19:22 11/12/18 19:35 Zofran IVPUSH 11/12/18 19:23 4 mg ONETIME ONE Administration - Re-Assessments/Exams Free Text/Narrative Re-Assessment/Exam: 11/12/18 20:15: Patient has remained vitally stable. Her labs are essentially unchanged from previous area and her CRP is somewhat less and her lactate is minimally elevated which I think represents dehydration. Her hemoglobin is normal. She is still having abdominal pain at an 8/10. Her nausea has resolved. I will give the patient 1 more liter of normal saline and we'll also give her a dose of fentanyl and Ativan IV for her pain and then reassess the patient after the next liter of IV fluids has been infused. 11/12/18 22:00: The patient's pain is down to a 5/10. Orthostatic vital signs were normal. Her pulse rate is normal. She appears nontoxic at this point. She has had urine output. Her abdomen is still somewhat tender on the right side but bowel sounds are present and there is no rebound. There is no evidence of a surgical abdomen at this point. Therefore I am going to discharge the patient. I will provide her with take-home packets of Compazine and tramadol 50 mg. She is to follow up with Dr. Mendes this week (I told her to call his office in the morning for follow-up this week). I had attempted to collect a stool for C. difficile but the patient reports that she had a stool tested for this 2 weeks ago at [facility] and it was normal. Departure - Departure Time of Disposition: 22:15 Disposition: Home, Self-Care 01 Condition: Good Clinical Impression: Dehydration Diarrhea Qualifiers: Diarrhea type: unspecified type Qualified Code(s): R19.7 - Diarrhea, unspecified Abdominal pain Qualifiers: Abdominal location: right lower quadrant Qualified Code(s): R10.31 - Right lower quadrant pain - Discharge Information Instructions: Abdominal Pain, Adult Referrals: Melanie Shaffer NP [Primary Care Provider] - Forms: ED Department Discharge Additional Instructions: Your blood tests were either normal or unchanged from previous check. You did appear to be dehydrated and we corrected that I giving IV fluids. I am unsure why you are continuing to have the diarrhea and the abdominal pain. You should increase your fluid intake. Take probiotics or eat yogurt daily. Medication as prescribed (tramadol 50 mg, Compazine 5 mg), note these were take-home packs. You need to call Dr. Mendes's office in the morning to arrange all up this week for recheck. No work tomorrow. Back to the emergency department for fever, worsening pain, unrelenting vomiting, blood in your stool or any other concerning sign or symptom. - My Orders Last 24 Hours: My Active Orders 11/12/18 19:20 Sodium Chloride 0.9% [Saline Flush] 10 ml FLUSH ASDIRECTED PRN Peripheral IV Insertion Adult [OM.PC] Routine - Assessment/Plan Last 24 Hours: My Active Orders 11/12/18 19:20 Sodium Chloride 0.9% [Saline Flush] 10 ml FLUSH ASDIRECTED PRN Peripheral IV Insertion Adult [OM.PC] Routine
== END 2018-11-12 22:30 | disposition home or self-care (01) ==
LOC: FB.ED 18:18
DX: E86.0 Dehydration (principal); R19.7 Diarrhea, unspecified; R10.31 Right lower quadrant pain; F17.210 Nicotine dependence, cigarettes, uncomplicated; Z88.8 Allergy status to other drugs, medicaments and biological substances; Z88.6 Allergy status to analgesic agent
CPT/HCPCS: 36415; 80053; 81001; 82150; 83605; 85025; 86140; 96361; 96374; 96375; 99284; A9270; J2060; J2405; J3010; J7030; Q0164

== ENCOUNTER 2018-11-19 06:42 | Day surgery (SDC) | payer MEDICAID, OTHER ==
[2018-11-19] MEDS ORDERED: Lidocaine 2% 100 MG/5 ML Syringe IVPUSH ONE (06:43)
[2018-11-19] MEDS ORDERED: Propofol 200 MG/20 ML SDV IV ONE (06:43)
[2018-11-19] MEDS ORDERED: Sodium Chloride 0.9% 10 ML Syringe FLUSH PRN ×2 (06:45→08:45)
[2018-11-19] MEDS ORDERED: Lactated Ringers 1,000 ML IV SCH ×2 (06:45→08:45)
--- NOTE | 2018-11-19 08:15 | PCM.OPNOTE ---
- General Post-Op/Procedure Note Date of Surgery/Procedure: 11/19/18 Operative Procedure(s): c scope with bx Findings: normal colon Pre Op Diagnosis: diarrhea Post-Op Diagnosis: Same Anesthesia Technique: Moderate Sedation Primary Surgeon: James Gallardo Anesthesia Provider: Tameka Lugo Pathology: random colon biopsy Complications: None Condition: Good Free Text/Narrative:: see dictation
[2018-11-19 09:01] VITALS: BP 100/79; PULSE 84
--- NOTE | 2018-11-19 11:45 | OR ---
DATE OF OPERATION: 11/19/2018 SURGEON: James Gallardo MD PROCEDURE PERFORMED: Colonoscopy with random biopsies. PREOPERATIVE DIAGNOSIS: Personal history of longstanding diarrhea. POSTOPERATIVE DIAGNOSIS: Grossly normal colon. INDICATIONS FOR PROCEDURE: This is a 38-year-old white female who has a history of diarrhea. This has been a longstanding problem with her accompanied by crampy abdominal pain. Denies any mucus or blood. She was offered and accepted a colonoscopy as part of a workup. DESCRIPTION OF OPERATION: After an excellent IV sedation was administered, digital rectal exam was performed. No marked abnormality was noted. Flexible colonoscope inserted and advanced to the cecum. Prep was excellent. Following findings were noted. Ascending colon, unremarkable. Transverse colon, unremarkable. Descending colon, unremarkable. Sigmoid and rectum, unremarkable. Colon was deflated as the scope was removed. Random biopsies were taken throughout to look for subclinical condition such as lymphocytic colitis. The patient tolerated the procedure well. Results by letter. /[id number] /MODL
== END 2018-11-19 08:56 | disposition home or self-care (01) ==
LOC: FB.SDS 06:42
PROVIDERS: ATTEND Surgery
DX: K58.0 Irritable bowel syndrome with diarrhea (principal); F17.210 Nicotine dependence, cigarettes, uncomplicated; G89.29 Other chronic pain; M54.5 Low back pain; N20.0 Calculus of kidney; Z88.5 Allergy status to narcotic agent; Z88.8 Allergy status to other drugs, medicaments and biological substances; Z79.899 Other long term (current) drug therapy
CPT/HCPCS: 00811; 45380; 88305; J2001; J2704; J7120

== ENCOUNTER 2018-11-23 14:45 | Emergency (ER) | payer MEDICAID, OTHER ==
[2018-11-23 14:59] VITALS: BP 137/97; PULSE 121
--- NOTE | 2018-11-23 15:56 | EDM.PDOC ---
ED HPI GENERAL MEDICAL PROBLEM - General Chief Complaint: Abdominal Pain Stated Complaint: COLITIS Time Seen by Provider: 11/23/18 15:25 Source of Information: Reports: Patient History Limitations: Reports: No Limitations - History of Present Illness INITIAL COMMENTS - FREE TEXT/NARRATIVE: 38-year-old female with ongoing pain on left side and diarrhea for 6 weeks or longer. She has been seen multiple times for this in the emergency department and has been thought to have colitis. She just had a colonoscopy on 11/19/[address] Gallardo which showed a normal-appearing colon. The patient reports that she continues to have diarrhea. She has had diarrhea 8 today and has continuing left-sided abdominal pain that she rates as an 8/10. His had no fevers. She's had no chills. She has been taken Imodium with really no relief of her diarrhea. She's had no dysuria or hematuria. She's had no cough or trouble breathing. The pain is sharp and stabbing and is worse with palpation. She has had no nausea and has been able to eat but that seems to make diarrhea worse. She has been taking liquids well. No other associated signs or symptoms. There are no other modifying factors. Onset: Other (Ongoing 6 weeks or longer.) Duration: Constant Location: Reports: Abdomen Quality: Reports: Sharp, Stabbing Severity: Moderate (to severe) Improves with: Reports: None Worsens with: Reports: Other (Palpation) Context: Reports: Other (No known inciting event.) Associated Symptoms: Reports: No Other Symptoms (Except as above) Treatments PUTTY MIXER: Reports: Acetaminophen, NSAIDS L abdomen Pain Score (Numeric/FACES): 8 - Related Data Allergies Allergy/AdvReac Type Severity Reaction Status Date / Time diclofenac Allergy Wheezing Verified 11/23/18 14:54 fluconazole Allergy Wheezing Verified 11/23/18 14:54 ketorolac [From Toradol] Allergy Respiratory Verified 11/23/18 14:54 Distress ketorolac tromethamine Allergy Hives Verified 11/23/18 14:54 [From Toradol] propoxyphene Allergy Wheezing Verified 11/23/18 14:54 [From Darvocet-N] tramadol Allergy Shortness Verified 11/23/18 14:54 of Breath steroid Allergy Agitation Uncoded 11/23/18 14:54 Home Meds: Home Meds Acetaminophen [Tylenol Extra Strength] 1,000 mg PO Q4H PRN 11/15/18 [History] Naproxen Sodium 220 mg PO BID 11/15/18 [History] Ondansetron HCl [Zofran] 4 mg PO Q4H PRN 11/15/18 [History] Past Medical History Cardiovascular History: Reports: Hypertension Gastrointestinal History: Reports: Inflammatory Bowel Disease (Reported history of ulcerative colitis per the patient.) Genitourinary History: Reports: Renal Calculus, UTI, Recurrent 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 Oncologic (Cancer) History: Reports: None Dermatologic History: Reports: Other (See Below) Other Dermatologic History: States she was MRSA positive in November 2017. - Infectious Disease History Infectious Disease History: Reports: Chicken Pox, MRSA - Past Surgical History HEENT Surgical History: Reports: Adenoidectomy, Naso-Sinus Surgery, Oral Surgery , Tonsillectomy Other Respiratory Surgeries/Procedures: unable to get information as of this time GI Surgical History: Reports: Appendectomy, Cholecystectomy, Colonoscopy Female Surgical History: Reports: Section, D&C, Hysterectomy, Other (See Below) Other Female Surgeries/Procedures: vag hyst Endocrine Surgical History: Reports: None Oncologic Surgical History: Reports: None Social & Family History - Tobacco Use Smoking Status *Q: Former Smoker Years of Tobacco use: 10 Packs/Tins Daily: 1 Used Tobacco, but Quit: Yes Month/Year Tobacco Last Used: 2018 - Caffeine Use Caffeine Use: Reports: None - Alcohol Use Alcohol Use History: No - Recreational Drug Use Recreational Drug Use: No - Living Situation & Occupation Occupation: Employed (Works at [employer] [facility] [facility] - Review of Systems Review Of Systems: See Below Constitutional: Reports: No Symptoms HEENT: Reports: No Symptoms Respiratory: Reports: No Symptoms Cardiovascular: Reports: No Symptoms Endocrine: Reports: No Symptoms GI/Abdominal: Reports: Abdominal Pain, Diarrhea : Reports: No Symptoms Musculoskeletal: Reports: Back Pain (Some left-sided back pain and flank pain) Skin: Reports: No Symptoms Neurological: Reports: No Symptoms Hematologic/Lymphatic: Reports: No Symptoms Immunologic: Reports: No Symptoms ED EXAM, GI/ABD - Physical Exam Exam: See Below Exam Limited By: No Limitations General Appearance: Alert, WD/WN, No Apparent Distress, Obese Eyes: Bilateral: Normal Appearance, EOMI Ears: Normal External Exam Nose: Normal Inspection, Normal Mucosa, No Blood Throat/Mouth: Normal Inspection, Normal Lips, Normal Teeth, Normal Gums, Normal Oropharynx, Normal Voice, No Airway Compromise Head: Atraumatic, Normocephalic Neck: Normal Inspection, Supple, Non-Tender, Full Range of Motion Respiratory/Chest: No Respiratory Distress, Lungs Clear, Normal Breath Sounds, No Accessory Muscle Use, Chest Non-Tender Cardiovascular: Normal Peripheral Pulses, Regular Rate, Rhythm, No JVD GI/Abdominal Exam: Normal Bowel Sounds, Soft, No Mass, Tender (Tender to palpation along her left abdomen and left flank. She is nontender elsewhere. There is no rebound. No rigidity. There are no masses.) Back Exam: CVA Tenderness (L). No: CVA Tenderness (R) Extremities: Normal Inspection, Normal Range of Motion, Non-Tender, No Pedal Edema, Normal Capillary Refill Neurological: Alert, Oriented, CN II-XII Intact, Normal Cognition, No Motor/ Sensory Deficits Psychiatric: Flat Affect Skin Exam: Warm, Dry, Intact, Normal Color, No Rash Course - Vital Signs Last Recorded V/S: Last Vital Signs Temp 37.3 C 11/23/18 14:49 Pulse 121 H 11/23/18 14:49 Resp 18 11/23/18 14:49 BP 137/97 H 11/23/18 14:49 Pulse Ox 99 11/23/18 14:49 - Re-Assessments/Exams Free Text/Narrative Re-Assessment/Exam: 11/23/18 16:45: Patient had presented with similar complaints in the past. Mathew was unchanged from previous. Recently had a normal colonoscopy and she has had normal workup in the past. I told patient that I would do laboratory testing to assess for inflammation, infection or blood in her urine but I would hold off on any pain medication until results were back. Apparently the patient left AWOL prior to lab coming in. The room was noted to be empty by nursing staff and no one saw the patient leave. Given her multiple negative workups, I would be somewhat concerned about drug-seeking behavior. Departure - Departure Time of Disposition: 16:45 Disposition: Eloped 07 Condition: Undetermined (Patient left AWOL) Clinical Impression: Abdominal pain Qualifiers: Abdominal location: right lower quadrant Qualified Code(s): R10.31 - Right lower quadrant pain Diarrhea Qualifiers: Diarrhea type: unspecified type Qualified Code(s): R19.7 - Diarrhea, unspecified - Discharge Information Referrals: PCP,None [Primary Care Provider] - Forms: ED Department Discharge
== END 2018-11-23 16:14 | disposition left against medical advice (07) ==
LOC: FB.ED 14:45
DX: R19.7 Diarrhea, unspecified (principal); R10.31 Right lower quadrant pain; I10 Essential (primary) hypertension; E11.9 Type 2 diabetes mellitus without complications; E66.9 Obesity, unspecified; Z90.49 Acquired absence of other specified parts of digestive tract; Z90.710 Acquired absence of both cervix and uterus; Z98.890 Other specified postprocedural states; Z88.5 Allergy status to narcotic agent; Z88.6 Allergy status to analgesic agent; Z88.8 Allergy status to other drugs, medicaments and biological substances; Z87.891 Personal history of nicotine dependence
CPT/HCPCS: 99283

== ENCOUNTER 2018-12-23 04:44 | Emergency (ER) | payer MEDICAID, OTHER ==
[2018-12-23 05:22] VITALS: BP 158/101; PULSE 144
[2018-12-23] MEDS ORDERED: Ciprofloxacin 500 MG Tab PO ONE (05:57)
[2018-12-23] MEDS ORDERED: metroNIDAZOLE 500 MG Tab PO ONE (05:57)
[2018-12-23] MEDS ORDERED: Ketorolac 30 MG/ML SDV IVPUSH ONE (05:58)
[2018-12-23] MEDS ORDERED: Sodium Chloride 0.9% 1,000 ML IV ONE (05:58)
--- NOTE | 2018-12-23 06:13 | EDM.PDOC ---
ED HPI GENERAL MEDICAL PROBLEM - General Chief Complaint: Abdominal Pain Stated Complaint: Lower Left Abdominal Pain Time Seen by Provider: 12/23/18 04:44 Source of Information: Reports: Patient History Limitations: Reports: No Limitations - History of Present Illness INITIAL COMMENTS - FREE TEXT/NARRATIVE: 38 y.o.w.f with a h/o Colitis came to the ed because of blood in her stool, LLQ of abd. pain. Pt had a colonoscopy on November 19 2018 which showed colitis, as per Pt. Pt was given Cipro and Flagyl at that time. Pt was doing fine till today. She was seen once in between in the ED when she eloped because she was refused narcotics. 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 Non of those helped her pain. Pt is allergic to multiple meds, including Toradol. As per previous notes, The CT abd/pelvis and colonoscopy were negative. Pt denied Trauma. Denied dysuria, No N/V/D. Pt stated she received T#[address] Gallardo. As per notes, she was given Bentyl and Tylenol at he clinic visit with Dr. Gallardo. Pt's HR was 144 on arrival. An IV was stared, NS was given wide open , lab was ordered. No C/P, no SOB. No other acute Med issue. As per notes, pt was on a pain contract, which she "broke". BP 128/81 Pulse 144 RR 22 Pulse ox 96 % on RA Temp 36.6 Onset Date: 12/22/18 Onset Time: 08:00 Duration: Day(s):, Chronic, Intermittent Location: Reports: Abdomen Quality: Reports: Ache, Burning, Dull, Pressure, Same as Previous Episode Severity: Moderate Improves with: Reports: Medication Worsens with: Reports: None Context: Reports: Other (has blood in stool, has sveral W/Ups including Colonoscopy on November 19. ) Associated Symptoms: Reports: No Other Symptoms Treatments HEAD MECHANIC: Reports: Acetaminophen, Other (see below) (Bentyl) - Related Data Allergies Allergy/AdvReac Type Severity Reaction Status Date / Time diclofenac Allergy Wheezing Verified 12/23/18 05:44 fluconazole Allergy Wheezing Verified 12/23/18 05:44 ketorolac [From Toradol] Allergy Respiratory Verified 12/23/18 05:44 Distress ketorolac tromethamine Allergy Hives Verified 12/23/18 05:44 [From Toradol] propoxyphene Allergy Wheezing Verified 12/23/18 05:44 [From Darvocet-N] tramadol Allergy Shortness Verified 12/23/18 05:44 of Breath steroid Allergy Agitation Uncoded 11/23/18 14:54 Home Meds: Home Meds Acetaminophen [Tylenol Extra Strength] 1,000 mg PO Q4H PRN 11/15/18 [History] Naproxen Sodium 220 mg PO BID 11/15/18 [History] Past Medical History - Past Health History Medical/Surgical History: Denies Medical/Surgical History HEENT History: Reports: None Cardiovascular History: Reports: Hypertension Gastrointestinal History: Reports: Inflammatory Bowel Disease Other Gastrointestinal History: hx ulcerative colitis, ABD PAIN Genitourinary History: Reports: Renal Calculus, UTI, Recurrent Other Genitourinary History: Kidney stones, 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 Musculoskeletal History: Reports: Back Pain, Chronic Psychiatric History: Reports: Addiction, Anxiety, Autism, Depression, Other ( See Below) Other Psychiatric History: Pain contract has been broken. Endocrine/Metabolic History: Reports: Diabetes, Type II, Obesity/BMI 30+ Other Endocrine/Metabolic History: Denies taking any meds at this time, diet controlled. Hematologic History: Reports: None Immunologic History: Reports: None Oncologic (Cancer) History: Reports: None Dermatologic History: Reports: Other (See Below) Other Dermatologic History: States she was MRSA positive in November 2017. - Infectious Disease History Infectious Disease History: Reports: Chicken Pox, MRSA - Past Surgical History HEENT Surgical History: Reports: Adenoidectomy, Naso-Sinus Surgery, Oral Surgery , Tonsillectomy GI Surgical History: Reports: Appendectomy, Cholecystectomy, Colonoscopy Female Surgical History: Reports: Section, D&C, Hysterectomy, Other (See Below) Other Female Surgeries/Procedures: Vaginal hysterectomy. Social & Family History - Family History Family Medical History: Noncontributory - Tobacco Use Smoking Status *Q: Never Smoker - Caffeine Use Caffeine Use: Reports: None - Living Situation & Occupation Occupation: Employed (Works at [employer] ED ROS GENERAL - Review of Systems Review Of Systems: See Below Constitutional: Reports: No Symptoms HEENT: Reports: No Symptoms Respiratory: Reports: No Symptoms Cardiovascular: Reports: No Symptoms Endocrine: Reports: No Symptoms GI/Abdominal: Reports: Abdominal Pain : Reports: No Symptoms Musculoskeletal: Reports: No Symptoms Skin: Reports: No Symptoms Neurological: Reports: No Symptoms Psychiatric: Reports: No Symptoms Hematologic/Lymphatic: Reports: No Symptoms Immunologic: Reports: No Symptoms ED EXAM, GI/ABD - Physical Exam Exam: See Below Exam Limited By: No Limitations General Appearance: Alert, WD/WN, Mild Distress, Moderate Distress Eyes: Bilateral: Normal Appearance Ears: Normal External Exam Nose: Normal Inspection Throat/Mouth: Normal Lips, Normal Voice, No Airway Compromise Head: Atraumatic, Normocephalic Neck: Normal Inspection, Supple, Non-Tender, Full Range of Motion Respiratory/Chest: No Respiratory Distress, Lungs Clear, Normal Breath Sounds, Chest Non-Tender Cardiovascular: Normal Peripheral Pulses, Regular Rate, Rhythm, No Edema, No Gallop, No Rub GI/Abdominal Exam: No Mass, Pelvis Stable, Tender (LLQ of abdomen) (Female) Exam: Deferred Rectal (Female) Exam: Deferred Back Exam: Normal Inspection, Full Range of Motion Extremities: Normal Inspection, Normal Range of Motion Neurological: Alert, Oriented, CN II-XII Intact, Normal Cognition Psychiatric: Normal Affect, Normal Mood Skin Exam: Warm, Dry, Intact, Normal Color, No Rash Lymphatic: No Adenopathy Course - Vital Signs Text/Narrative:: 38 y.o.w.f with a h/o Colitis came to the ed because of blood in her stool, LLQ of abd. pain. Pt had a colonoscopy on November 19 2018 which showed colitis, as per Pt. Pt was given Cipro and Flagyl at that time. Pt was doing fine till today. She was seen once in between in the ED when she eloped because she was refused narcotics. 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 Non of those helped her pain. Pt is allergic to multiple meds, including Toradol. As per previous notes, The CT abd/pelvis and colonoscopy were negative. Pt denied Trauma. Denied dysuria, No N/V/D. Pt stated she received T#[address] Gallardo. As per notes, she was given Bentyl and Tylenol at he clinic visit with Dr. Gallardo. Pt's HR was 144 on arrival. An IV was stared, NS was given wide open , lab was ordered. No C/P, no SOB. No other acute Med issue. As per notes, pt was on a pain contract, which she "broke". BP 128/81 Pulse 144 RR 22 Pulse ox 96 % on RA Temp 36.6 PE: Morbid obese 38 y.o.w.f with LLQ abd. pain and blood in he stool as per pt Imaging: Not indicated at this time Labs: CBC, BMP and UA nl Her Glc was 227, however. Impression: Abd. pain with multiple neg work ups Drug seeking behavior. Signed out AMA Tx: NS, Pt requested Narcotics which were not given. Rexam: PT's pulse rate improved. Pt suddenly wanted the IV taken out and signed out AMA. Was ambulating fine, did not appear in pain when she left the ED Plan: Pt left AMA Last Recorded V/S: Last Vital Signs Temp 36.6 C 12/23/18 04:45 Pulse 144 H 12/23/18 04:45 Resp 22 H 12/23/18 04:45 BP 158/101 H 12/23/18 04:45 Pulse Ox 96 12/23/18 04:45 - Orders/Labs/Meds Labs: Laboratory Tests 12/23/18 12/23/18 12/23/18 Range/Units 05:10 05:25 05:25 WBC 11.5 (4.5-12.0) X10-3/uL RBC 4.90 (3.23-5.20) x10(6)uL Hgb 14.0 (11.5-15.5) g/dL Hct 41.5 (30.0-51.3) % MCV 84.6 (80-96) fL MCH 28.5 (27.7-33.6) pg MCHC 33.7 (32.2-35.4) g/dL RDW 13.7 (11.5-15.5) % Plt Count 205 (125-369) X10(3)uL MPV 9.4 (7.4-10.4) fL Neut % (Auto) 69.2 (46-82) % Lymph % (Auto) 25.3 (13-37) % [place] % (Auto) 4.2 (4-12) % Eos % (Auto) 1 (1.0-5.0) % Baso % (Auto) 1 (0-2) % Neut # (Auto) 7.8 (1.6-8.3) # Lymph # (Auto) 2.9 (0.6-5.0) # [place] # (Auto) 0.5 (0.0-1.3) # Eos # (Auto) 0.1 (0.0-0.8) # Baso # (Auto) 0.1 (0.0-0.2) # PT (8.7-11.1) INR (0.89-1.13) Sodium 139 (135-145) mmol/L Potassium 3.9 (3.5-5.3) mmol/L Chloride 100 (100-110) mmol/L Carbon Dioxide 26 (21-32) mmol/L BUN 6 L (7-18) mg/dL Creatinine 0.8 (0.55-1.02) mg/dL Est Cr Clr Drug Dosing 69.83 mL/min Estimated GFR (MDRD) > 60 (>60) BUN/Creatinine Ratio 7.5 L (9-20) Glucose 227 H D (80-116) mg/dL Calcium 9.8 (8.6-10.2) mg/dL Urine Color Yellow (YELLOW) Urine Appearance Clear (CLEAR) Urine pH 7.0 H (5.0-6.5) Ur Specific Kelly 1.005 L (1.010-1.025) Urine Protein Negative (NEGATIVE) mg/dL Urine Glucose (UA) 250 H (NORMAL) mg/dL Urine Ketones Negative (NEGATIVE) mg/dL Urine Occult Blood Negative (NEGATIVE) Urine Nitrite Negative (NEGATIVE) Urine Bilirubin Negative (NEGATIVE) Urine Urobilinogen Normal (NEGATIVE) mg/dL Ur Leukocyte Esterase Negative (NEGATIVE) Urine RBC 0-5 (0-5) Urine WBC 0-5 (0-5) Ur Squamous Epith Cells Occasional (NS,R,O) Urine Bacteria Rare H (NS) 12/23/18 Range/Units 05:25 WBC (4.5-12.0) X10-3/uL RBC (3.23-5.20) x10(6)uL Hgb (11.5-15.5) g/dL Hct (30.0-51.3) % MCV (80-96) fL MCH (27.7-33.6) pg MCHC (32.2-35.4) g/dL RDW (11.5-15.5) % Plt Count (125-369) X10(3)uL MPV (7.4-10.4) fL Neut % (Auto) (46-82) % Lymph % (Auto) (13-37) % [place] % (Auto) (4-12) % Eos % (Auto) (1.0-5.0) % Baso % (Auto) (0-2) % Neut # (Auto) (1.6-8.3) # Lymph # (Auto) (0.6-5.0) # [place] # (Auto) (0.0-1.3) # Eos # (Auto) (0.0-0.8) # Baso # (Auto) (0.0-0.2) # PT 9.5 (8.7-11.1) INR 0.98 (0.89-1.13) Sodium (135-145) mmol/L Potassium (3.5-5.3) mmol/L Chloride (100-110) mmol/L Carbon Dioxide (21-32) mmol/L BUN (7-18) mg/dL Creatinine (0.55-1.02) mg/dL Est Cr Clr Drug Dosing mL/min Estimated GFR (MDRD) (>60) BUN/Creatinine Ratio (9-20) Glucose (80-116) mg/dL Calcium (8.6-10.2) mg/dL Urine Color (YELLOW) Urine Appearance (CLEAR) Urine pH (5.0-6.5) Ur Specific Kelly (1.010-1.025) Urine Protein (NEGATIVE) mg/dL Urine Glucose (UA) (NORMAL) mg/dL Urine Ketones (NEGATIVE) mg/dL Urine Occult Blood (NEGATIVE) Urine Nitrite (NEGATIVE) Urine Bilirubin (NEGATIVE) Urine Urobilinogen (NEGATIVE) mg/dL Ur Leukocyte Esterase (NEGATIVE) Urine RBC (0-5) Urine WBC (0-5) Ur Squamous Epith Cells (NS,R,O) Urine Bacteria (NS) Meds: Medications Discontinued Medications Generic Name Dose Route Start Last Admin Trade Name Freq PRN Reason Stop Dose Admin Acetaminophen 650 mg 12/23/18 07:14 12/23/18 07:21 Tylenol PO 12/23/18 07:15 650 mg NOW ONE Administration Ciprofloxacin 500 mg 12/23/18 05:57 12/23/18 06:26 Ciprofloxacin Hcl PO 12/23/18 05:58 500 mg ONETIME ONE Administration Sodium Chloride 1,000 mls @ 999 mls/hr 12/23/18 05:58 12/23/18 07:05 Normal Saline IV 12/23/18 06:58 999 mls/hr .BOLUS ONE Administration Ketorolac Tromethamine 30 mg 12/23/18 05:58 12/23/18 06:27 Toradol IVPUSH 12/23/18 05:59 Not Given ONETIME ONE Metronidazole 500 mg 12/23/18 05:57 12/23/18 06:26 Flagyl PO 12/23/18 05:58 500 mg ONETIME ONE Administration Departure - Departure Time of Disposition: 07:37 Disposition: Against Medical Advice 07 Condition: Good Clinical Impression: Drug-seeking behavior - Discharge Information Referrals: Francisco Mendes MD [Primary Care Provider] - Forms: ED Department Discharge
[2018-12-23] MEDS ORDERED: Acetaminophen 325 MG Tab PO ONE (07:14)
== END 2018-12-23 07:37 | disposition left against medical advice (07) ==
LOC: FB.ED 04:44
DX: R10.32 Left lower quadrant pain (principal); Z76.5 Malingerer [conscious simulation]; Z53.20 Procedure and treatment not carried out because of patient's decision for unspecified reasons; I10 Essential (primary) hypertension; E11.9 Type 2 diabetes mellitus without complications; Z88.6 Allergy status to analgesic agent; Z88.5 Allergy status to narcotic agent; Z88.8 Allergy status to other drugs, medicaments and biological substances; Z79.899 Other long term (current) drug therapy; Z87.442 Personal history of urinary calculi
CPT/HCPCS: 36415; 80048; 81001; 85025; 85610; 99284; A9270; J7030

== ENCOUNTER 2019-08-12 20:03 | Emergency (ER) | payer MEDICAID, OTHER ==
--- NOTE | 2019-08-12 20:31 | EDM.PDOC ---
ED HPI GENERAL MEDICAL PROBLEM - General Chief Complaint: Headache Stated Complaint: MIGRAINE Time Seen by Provider: 08/12/19 20:28 Source of Information: Reports: Patient History Limitations: Reports: No Limitations - History of Present Illness INITIAL COMMENTS - FREE TEXT/NARRATIVE: Presents with a typical Migraine headache localized to the back of her head, associated w/ N/V and photophobia, per usual. Duration: Day(s): (3) Location: Reports: Head Severity: Moderate - Related Data Allergies Allergy/AdvReac Type Severity Reaction Status Date / Time diclofenac Allergy Wheezing Verified 08/12/19 20:46 fluconazole Allergy Wheezing Verified 08/12/19 20:46 ketorolac [From Toradol] Allergy Respiratory Verified 08/12/19 20:46 Distress ketorolac tromethamine Allergy Hives Verified 08/12/19 20:46 [From Toradol] propoxyphene Allergy Wheezing Verified 08/12/19 20:46 [From Darvocet-N] tramadol Allergy Shortness Verified 08/12/19 20:46 of Breath steroid Allergy Agitation Uncoded 12/24/18 01:43 Home Meds: Home Meds Acetaminophen [Tylenol Extra Strength] 1,000 mg PO Q4H PRN 11/15/18 [History] Naproxen Sodium 220 mg PO BID 11/15/18 [History] Past Medical History HEENT History: Reports: None Cardiovascular History: Reports: Hypertension Gastrointestinal History: Reports: Inflammatory Bowel Disease Other Gastrointestinal History: hx ulcerative colitis, ABD PAIN Genitourinary History: Reports: Renal Calculus, UTI, Recurrent Other Genitourinary History: Kidney stones, 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 Musculoskeletal History: Reports: Back Pain, Chronic Neurological History: Reports: Migraines Psychiatric History: Reports: Addiction, Anxiety, Autism, Depression, Other ( See Below) Other Psychiatric History: Pain contract has been broken. Endocrine/Metabolic History: Reports: Diabetes, Type II, Obesity/BMI 30+ Other Endocrine/Metabolic History: Denies taking any meds at this time, diet controlled. Hematologic History: Reports: None Immunologic History: Reports: None Oncologic (Cancer) History: Reports: None Dermatologic History: Reports: Other (See Below) Other Dermatologic History: States she was MRSA positive in November 2017. - Infectious Disease History Infectious Disease History: Reports: Chicken Pox, MRSA - Past Surgical History HEENT Surgical History: Reports: Adenoidectomy, Naso-Sinus Surgery, Oral Surgery , Tonsillectomy GI Surgical History: Reports: Appendectomy, Cholecystectomy, Colonoscopy Female Surgical History: Reports: Section, D&C, Hysterectomy, Other (See Below) Other Female Surgeries/Procedures: Vaginal hysterectomy. Social & Family History - Family History Family Medical History: Noncontributory - Caffeine Use Caffeine Use: Reports: None - Living Situation & Occupation Occupation: Employed (Works at [employer]) ED ROS GENERAL - Review of Systems Review Of Systems: Comprehensive ROS is negative, except as noted in HPI. - Physical Exam Exam: See Below Exam Limited By: No Limitations General Appearance: Alert, WD/WN, No Apparent Distress Eye Exam: Bilateral Eye: EOMI, PERRL Nose: Normal Inspection Throat/Mouth: No Airway Compromise Head Exam: Atraumatic, Normocephalic Neck: Supple, Full Range of Motion Respiratory/Chest: No Respiratory Distress, Lungs Clear, Normal Breath Sounds Cardiovascular: Regular Rate, Rhythm, No Murmur Neuro Exam (Abbreviated): Alert, Normal Cognition, No Motor/Sensory Deficits Extremities: Normal Range of Motion Psychiatric: Normal Affect, Normal Mood Skin Exam: Warm, Dry, Intact Course - Vital Signs Last Recorded V/S: Last Vital Signs Temp 36.8 C 08/12/19 20:40 Pulse 79 08/12/19 20:40 Resp 16 08/12/19 20:40 BP 143/77 H 08/12/19 20:40 Pulse Ox 99 08/12/19 20:40 - Orders/Labs/Meds Meds: Medications Discontinued Medications Generic Name Dose Route Start Last Admin Trade Name Markieq PRN Reason Stop Dose Admin Hydromorphone HCl 0.5 mg 08/12/19 20:45 Dilaudid IM 08/12/19 20:46 ONETIME ONE Ondansetron HCl 4 mg 08/12/19 20:45 Zofran IM 08/12/19 20:46 ONETIME ONE Departure - Departure Time of Disposition: 20:51 Disposition: Home, Self-Care 01 Condition: Good Clinical Impression: Migraine Qualifiers: Migraine type: unspecified Status migrainosus presence: without status migrainosus Intractability: not intractable Qualified Code(s): G43.909 - Migraine, unspecified, not intractable, without status migrainosus - Discharge Information *PRESCRIPTION DRUG MONITORING PROGRAM REVIEWED*: Yes *COPY OF PRESCRIPTION DRUG MONITORING REPORT IN PATIENT PAULA: No Instructions: Migraine Headache, [id number] Referrals: Francisco Mendes MD [Primary Care Provider] - Forms: ED Department Discharge Additional Instructions: Rest, drink plenty of fluids. Call your doctor in 1-2 days if symptoms don't improve. Return to the ER if you feel like you are having a medical emergency. Sepsis Event Note - Focused Exam Vital Signs: Vital Signs Temp Pulse Resp BP Pulse Ox 08/12/19 20:40 36.8 C 79 16 143/77 H 99 Date Exam was Performed: 08/12/19 Time Exam was Performed: 20:49
[2019-08-12] MEDS ORDERED: Ondansetron 4 MG/2 ML SDV IM ONE (20:45)
[2019-08-12] MEDS ORDERED: HYDROmorphone 2 MG/ML SDV IM ONE (20:45)
[2019-08-12 22:34] VITALS: BP 148/92; PULSE 73
== END 2019-08-12 21:24 | disposition home or self-care (01) ==
LOC: FB.ED 20:03
DX: G43.909 Migraine, unspecified, not intractable, without status migrainosus (principal); I10 Essential (primary) hypertension; E11.9 Type 2 diabetes mellitus without complications; E66.9 Obesity, unspecified; Z68.32 Body mass index [BMI] 32.0-32.9, adult; Z88.8 Allergy status to other drugs, medicaments and biological substances; Z88.5 Allergy status to narcotic agent
CPT/HCPCS: 96372; 99284; J1170; J2405; 99283

== ENCOUNTER 2019-08-30 15:16 | Emergency (ER) | payer MEDICAID ==
[2019-08-30] MEDS ORDERED: Acetaminophen/HYDROcodone 325-5 MG Tab PO ONE (15:17)
[2019-08-30] MEDS ORDERED: Sodium Chloride 0.9% 10 ML Syringe FLUSH PRN (15:34)
[2019-08-30] MEDS ORDERED: methylPREDNISolone Sodium Succinate 125 MG/2 ML SDV IVPUSH ONE (15:36)
[2019-08-30] MEDS ORDERED: Ondansetron 4 MG/2 ML SDV IVPUSH ONE ×2 (15:38→17:21)
[2019-08-30] MEDS ORDERED: Morphine 2 MG/ML Syringe IVPUSH ONE (15:45)
[2019-08-30] MEDS ORDERED: Sodium Chloride 0.9% 1,000 ML IV SCH (15:45)
[2019-08-30] MEDS ORDERED: Iopamidol 755 Mg/ML 100 ML Bottle IV ONE (16:08)
--- NOTE | 2019-08-30 17:23 | EDM.PDOC ---
ED HPI GENERAL MEDICAL PROBLEM - General Chief Complaint: General Stated Complaint: RECTAL BLEEDING, MIGRAINE Time Seen by Provider: 08/30/19 15:25 Source of Information: Reports: Patient History Limitations: Reports: No Limitations - History of Present Illness INITIAL COMMENTS - FREE TEXT/NARRATIVE: Patient presented to the ED because of bright red blood in her stool and abdominal pain x 2 days. She has a history of UC and is taking sulfasalazine, however she just moved here and don't have a GI doc managing her UC. The pain is sharp and cramping 01/29, with associated nausea but no vomiting. There is no fever,chills, or any urinary symptoms. lower abd LIBBY Pain Score (Numeric/FACES): 7 - Related Data Allergies Allergy/AdvReac Type Severity Reaction Status Date / Time diclofenac Allergy Wheezing Verified 08/12/19 20:46 fluconazole Allergy Wheezing Verified 08/12/19 20:46 ketorolac [From Toradol] Allergy Respiratory Verified 08/12/19 20:46 Distress ketorolac tromethamine Allergy Hives Verified 08/12/19 20:46 [From Toradol] propoxyphene Allergy Wheezing Verified 08/12/19 20:46 [From Darvocet-N] tramadol Allergy Shortness Verified 08/12/19 20:46 of Breath steroid Allergy Agitation Uncoded 12/24/18 01:43 Home Meds: Home Meds Acetaminophen [Tylenol Extra Strength] 1,000 mg PO Q4H PRN 11/15/18 [History] Naproxen Sodium 220 mg PO BID 11/15/18 [History] Past Medical History HEENT History: Reports: None Cardiovascular History: Reports: Hypertension Gastrointestinal History: Reports: Inflammatory Bowel Disease Other Gastrointestinal History: hx ulcerative colitis, ABD PAIN Genitourinary History: Reports: Renal Calculus, UTI, Recurrent Other Genitourinary History: Kidney stones, 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 Musculoskeletal History: Reports: Back Pain, Chronic Neurological History: Reports: Migraines Psychiatric History: Reports: Addiction, Anxiety, Autism, Depression, Other ( See Below) Other Psychiatric History: Pain contract has been broken. Endocrine/Metabolic History: Reports: Diabetes, Type II, Obesity/BMI 30+ Other Endocrine/Metabolic History: Denies taking any meds at this time, diet controlled. Hematologic History: Reports: None Immunologic History: Reports: None Oncologic (Cancer) History: Reports: None Dermatologic History: Reports: Other (See Below) Other Dermatologic History: States she was MRSA positive in November 2017. - Infectious Disease History Infectious Disease History: Reports: Chicken Pox, MRSA - Past Surgical History Head Surgeries/Procedures: Reports: None HEENT Surgical History: Reports: Adenoidectomy, Naso-Sinus Surgery, Oral Surgery , Tonsillectomy Other Respiratory Surgeries/Procedures: unable to get information as of this time GI Surgical History: Reports: Appendectomy, Cholecystectomy, Colonoscopy Female Surgical History: Reports: Section, D&C, Hysterectomy, Other (See Below) Other Female Surgeries/Procedures: Vaginal hysterectomy. Social & Family History - Family History Family Medical History: Noncontributory - Tobacco Use Smoking Status *Q: Current Every Day Smoker Years of Tobacco use: 15 Packs/Tins Daily: 0.2 - Caffeine Use Caffeine Use: Reports: None - Living Situation & Occupation Occupation: Employed (Works at [email or web address] ED ROS GENERAL - Review of Systems Review Of Systems: See Below Constitutional: Reports: No Symptoms HEENT: Reports: No Symptoms Respiratory: Reports: No Symptoms Cardiovascular: Reports: No Symptoms Endocrine: Reports: No Symptoms GI/Abdominal: Reports: Abdominal Pain, Bloody Stool, Nausea, Vomiting : Reports: No Symptoms Musculoskeletal: Reports: No Symptoms Skin: Reports: No Symptoms Neurological: Reports: No Symptoms Psychiatric: Reports: No Symptoms ED EXAM, GENERAL - Physical Exam Exam: See Below Exam Limited By: No Limitations General Appearance: Alert, No Apparent Distress Ears: Normal External Exam, Normal Canal Nose: Normal Inspection, Normal Mucosa Throat/Mouth: Normal Inspection, Normal Lips, Normal Teeth Head: Atraumatic, Normocephalic Neck: Normal Inspection, Supple, Non-Tender, Full Range of Motion Respiratory/Chest: No Respiratory Distress, Lungs Clear, Normal Breath Sounds Cardiovascular: Normal Peripheral Pulses, Regular Rate, Rhythm, No Edema, No JVD , No Murmur GI/Abdominal: Normal Bowel Sounds, Soft, No Distention, No Abnormal Bruit, Other (diffusely tender) Back Exam: Normal Inspection, Full Range of Motion Extremities: Normal Inspection, Normal Range of Motion Neurological: Alert, Oriented, CN II-XII Intact, Normal Cognition Skin Exam: Warm Course - Vital Signs Text/Narrative:: Labs/CT abd/pelvis result was discussed with patient and verbalized full understanding NS 1 L bolus Zofran 4 mg IV x2 Morphine 2 mg IV x1 Last Recorded V/S: Last Vital Signs Temp 36.7 C 08/30/19 15:16 Pulse 113 H 08/30/19 15:16 Resp 18 08/30/19 15:16 BP 138/105 H 08/30/19 15:16 Pulse Ox 99 08/30/19 15:16 - Orders/Labs/Meds Orders: Active Orders 24 hr Category Date Time Status Abdomen Pelvis w Cont [CT] Stat Exams 08/30/19 15:39 Taken Sodium Chloride 0.9% [Normal Saline] 1,000 ml Med 08/30/19 15:45 Active IV ASDIRECTED Sodium Chloride 0.9% [Saline Flush] Med 08/30/19 15:34 Active 10 ml FLUSH ASDIRECTED PRN Saline Lock Insert [OM.PC] Routine Oth 08/30/19 15:34 Ordered Medication Orders Sodium Chloride (Normal Saline) 1,000 mls @ 999 mls/hr IV ASDIRECTED LYNETTE Last Admin: 08/30/19 16:19 Dose: 999 mls/hr Sodium Chloride (Saline Flush) 10 ml FLUSH ASDIRECTED PRN PRN Reason: Keep Vein Open Last Admin: 08/30/19 16:28 Dose: 10 ml Labs: Laboratory Tests 08/30/19 08/30/19 08/30/19 Range/Units 15:50 16:20 16:20 WBC 11.8 (4.5-12.0) X10-3/uL RBC 4.88 (3.23-5.20) x10(6)uL Hgb 13.2 (11.5-15.5) g/dL Hct 40.9 (30.0-51.3) % MCV 83.7 (80-96) fL MCH 27.1 L (27.7-33.6) pg MCHC 32.3 (32.2-35.4) g/dL RDW 14.3 (11.5-15.5) % Plt Count 219 (125-369) X10(3)uL MPV 8.9 (7.4-10.4) fL Neut % (Auto) 66.5 (46-82) % Lymph % (Auto) 27.0 (13-37) % [place] % (Auto) 5.3 (4-12) % Eos % (Auto) 1 (1.0-5.0) % Baso % (Auto) 1 (0-2) % Neut # (Auto) 7.8 (1.6-8.3) # Lymph # (Auto) 3.2 (0.6-5.0) # [place] # (Auto) 0.6 (0.0-1.3) # Eos # (Auto) 0.1 (0.0-0.8) # Baso # (Auto) 0.1 (0.0-0.2) # Sodium 144 (135-145) mmol/L Potassium 3.6 (3.5-5.3) mmol/L Chloride 107 D (100-110) mmol/L Carbon Dioxide 22 (21-32) mmol/L BUN 10 (7-18) mg/dL Creatinine 0.8 (0.55-1.02) mg/dL Est Cr Clr Drug Dosing 107.61 mL/min Estimated GFR (MDRD) > 60 (>60) BUN/Creatinine Ratio 12.5 (9-20) Glucose 109 D (80-116) mg/dL Calcium 8.6 (8.6-10.2) mg/dL Total Bilirubin 0.2 (0.1-1.3) mg/dL AST 40 H (5-25) IU/L ALT 87 H D (12-36) U/L Alkaline Phosphatase 80 (56-112) IU/L Total Protein 8.3 H (6.0-8.0) g/dL Albumin 3.9 (3.5-5.2) g/dL Globulin 4.4 g/dL Albumin/Globulin Ratio 0.9 Amylase 48 (25-115) U/L Lipase (73-393) U/L Urine Color Yellow (YELLOW) Urine Appearance Clear (CLEAR) Urine pH 7.0 H (5.0-6.5) Ur Specific [place] 1.020 (1.010-1.025) Urine Protein Negative (NEGATIVE) mg/dL Urine Glucose (UA) Normal (NORMAL) mg/dL Urine Ketones Negative (NEGATIVE) mg/dL Urine Occult Blood Large H (NEGATIVE) Urine Nitrite Negative (NEGATIVE) Urine Bilirubin Negative (NEGATIVE) Urine Urobilinogen Normal (NEGATIVE) mg/dL Ur Leukocyte Esterase Negative (NEGATIVE) Urine RBC 20-30 H (0-5) Urine WBC 0-5 (0-5) Ur Squamous Epith Cells Few H (NS,R,O) Urine Bacteria Few H (NS) 08/30/19 Range/Units 16:20 WBC (4.5-12.0) X10-3/uL RBC (3.23-5.20) x10(6)uL Hgb (11.5-15.5) g/dL Hct (30.0-51.3) % MCV (80-96) fL MCH (27.7-33.6) pg MCHC (32.2-35.4) g/dL RDW (11.5-15.5) % Plt Count (125-369) X10(3)uL MPV (7.4-10.4) fL Neut % (Auto) (46-82) % Lymph % (Auto) (13-37) % [place] % (Auto) (4-12) % Eos % (Auto) (1.0-5.0) % Baso % (Auto) (0-2) % Neut # (Auto) (1.6-8.3) # Lymph # (Auto) (0.6-5.0) # [place] # (Auto) (0.0-1.3) # Eos # (Auto) (0.0-0.8) # Baso # (Auto) (0.0-0.2) # Sodium (135-145) mmol/L Potassium (3.5-5.3) mmol/L Chloride (100-110) mmol/L Carbon Dioxide (21-32) mmol/L BUN (7-18) mg/dL Creatinine (0.55-1.02) mg/dL Est Cr Clr Drug Dosing mL/min Estimated GFR (MDRD) (>60) BUN/Creatinine Ratio (9-20) Glucose (80-116) mg/dL Calcium (8.6-10.2) mg/dL Total Bilirubin (0.1-1.3) mg/dL AST (5-25) IU/L ALT (12-36) U/L Alkaline Phosphatase (56-112) IU/L Total Protein (6.0-8.0) g/dL Albumin (3.5-5.2) g/dL Globulin g/dL Albumin/Globulin Ratio Amylase (25-115) U/L Lipase 171 (73-393) U/L Urine Color (YELLOW) Urine Appearance (CLEAR) Urine pH (5.0-6.5) Ur Specific [place] (1.010-1.025) Urine Protein (NEGATIVE) mg/dL Urine Glucose (UA) (NORMAL) mg/dL Urine Ketones (NEGATIVE) mg/dL Urine Occult Blood (NEGATIVE) Urine Nitrite (NEGATIVE) Urine Bilirubin (NEGATIVE) Urine Urobilinogen (NEGATIVE) mg/dL Ur Leukocyte Esterase (NEGATIVE) Urine RBC (0-5) Urine WBC (0-5) Ur Squamous Epith Cells (NS,R,O) Urine Bacteria (NS) Meds: Medications Generic Name Dose Route Start Last Admin Trade Name Freq PRN Reason Stop Dose Admin Sodium Chloride 1,000 mls @ 999 mls/hr 08/30/19 15:45 08/30/19 16:19 Normal Saline IV 999 mls/hr ASDIRECTED LYNETTE Administration Sodium Chloride 10 ml 08/30/19 15:34 08/30/19 16:28 Saline Flush FLUSH 10 ml ASDIRECTED PRN Administration Keep Vein Open Discontinued Medications Generic Name Dose Route Start Last Admin Trade Name Freq PRN Reason Stop Dose Admin Iopamidol 100 ml 08/30/19 16:08 08/30/19 16:45 Isovue-370 (76%) IV 08/30/19 16:09 93 ml . DIRECTED ONE Administration Methylprednisolone Sodium Succinate 125 mg 08/30/19 15:36 08/30/19 16:20 Solu-Medrol IVPUSH 08/30/19 15:37 125 mg ONETIME ONE Administration Morphine Sulfate 2 mg 08/30/19 15:45 08/30/19 16:19 Morphine IVPUSH 08/30/19 15:46 2 mg ONETIME ONE Administration Ondansetron HCl 4 mg 08/30/19 15:38 08/30/19 16:19 Zofran IVPUSH 08/30/19 15:39 4 mg ONETIME ONE Administration Ondansetron HCl 4 mg 08/30/19 17:21 08/30/19 17:24 Zofran IVPUSH 08/30/19 17:22 4 mg ONETIME ONE Administration Departure - Departure Time of Disposition: 17:30 Disposition: Home, Self-Care 01 Condition: Good Clinical Impression: Ulcerative colitis - Discharge Information Instructions: Ulcerative Colitis, Adult Referrals: Francisco Mendes MD [Primary Care Provider] - Forms: ED Department Discharge Additional Instructions: please read discharge instructions on ulcerative colitis prednisolone 30 mg twice daily for 10 days call [facility] on Monday and let them schedule you to see one of their Database Operator to manage your ulcerative colitis Sepsis Event Note - Evaluation Sepsis Screening Result: No Definite Risk - Focused Exam Vital Signs: Vital Signs Temp Pulse Resp BP Pulse Ox 08/30/19 15:16 36.7 C 113 H 18 138/105 H 99 Date Exam was Performed: 08/30/19 Time Exam was Performed: 17:31 - My Orders Last 24 Hours: My Active Orders 08/30/19 15:34 Sodium Chloride 0.9% [Saline Flush] 10 ml FLUSH ASDIRECTED PRN Saline Lock Insert [OM.PC] Routine 08/30/19 15:39 Abdomen Pelvis w Cont [CT] Stat 08/30/19 15:45 Sodium Chloride 0.9% [Normal Saline] 1,000 ml IV ASDIRECTED - Assessment/Plan Last 24 Hours: My Active Orders 08/30/19 15:34 Sodium Chloride 0.9% [Saline Flush] 10 ml FLUSH ASDIRECTED PRN Saline Lock Insert [OM.PC] Routine 08/30/19 15:39 Abdomen Pelvis w Cont [CT] Stat 08/30/19 15:45 Sodium Chloride 0.9% [Normal Saline] 1,000 ml IV ASDIRECTED
--- NOTE | 2019-08-30 17:40 | CT ---
INDICATION: Lower abdominal pain. History of ulcerative colitis. COMPUTERIZED TOMOGRAPHY OF THE ABDOMEN AND PELVIS WITH CONTRAST: Spiral 3.75 mm axial sections were obtained through the abdomen and pelvis with 93 mL Isovue -370 at 1.7 cc/second with sagittal and coronal reconstructions 08/30/19 and compared with 11/03/18. Total exam DLP was 1175.52 mGy-cm. The heart appears to be near the upper limits of normal in size. No pericardial effusion was seen. An active infiltrate or effusion was not identified. Clips are present at the cystic duct with absence of the gallbladder, compatible with cholecystectomy. The liver appears to be somewhat diminished in density, raising question of fatty liver - correlate clinically. No focal liver lesions were identified. The adrenal glands, kidneys, spleen, pancreas, common bile duct, and aorta were unremarkable. No retroperitoneal mass was seen. There are some retroperitoneal lymph nodes, 1 in particular anterior to the aorta is noted and is either stable or slightly decreased in size, seen on axial image 60 and 59 compared with 57 on the previous examination. The appendix is absent, compatible with history of its removal. No evidence of free air or obstruction was seen. There appears to be some liquid stool in the rectum, which would suggest the possibility of gastroenteritis, but should be correlated clinically. There are some loops of fluid-filled bowel, but no gross air-fluid levels - relatively mild air-fluid levels are noted. No significant-appearing hernia is identified. No finding to strongly suggest colitis was identified, except in the sigmoid colon where there is thickening of the wall of the sigmoid colon. Colitis could be present in that area. Direct visualization may be helpful depending up clinical correlation. The uterus is absent compatible with history of its removal. Urinary bladder was unremarkable. IMPRESSION: 1. Suggestion of some thickening of the wall of the sigmoid colon. This could be on the basis of colitis, but should be correlated clinically. Direct visualization should be confirmatory. 2. There are some minimal air-fluid levels with some fluid suggested in the bowel, raising question of a process such as gastroenteritis - correlate clinically. A process such as Crohn's disease could be present. 3. Mildly prominent heart size. 4. Post cholecystectomy, appendectomy, hysterectomy. 5. Fatty liver is suggested. Report was called to Dr Lala at 1707 hours. [facility]
[2019-08-30 17:43] VITALS: BP 150/90; PULSE 90
== END 2019-08-30 17:37 | disposition home or self-care (01) ==
LOC: FB.ED 15:16
DX: K51.90 Ulcerative colitis, unspecified, without complications (principal); I10 Essential (primary) hypertension; F84.0 Autistic disorder; E11.9 Type 2 diabetes mellitus without complications; E66.9 Obesity, unspecified; F17.210 Nicotine dependence, cigarettes, uncomplicated; Z68.25 Body mass index [BMI] 25.0-25.9, adult; Z88.5 Allergy status to narcotic agent; Z88.8 Allergy status to other drugs, medicaments and biological substances
CPT/HCPCS: 36415; 74177; 80053; 81001; 82150; 83690; 85025; 96361; 96374; 96375; 96376; 99284; A9270; J2270; J2405; J2930; J7030; Q9967

== ENCOUNTER 2019-09-25 16:19 | Emergency (ER) | payer MEDICAID ==
[2019-09-25] MEDS ORDERED: Sodium Chloride 0.9% 10 ML Syringe FLUSH PRN (17:00)
[2019-09-25] MEDS ORDERED: Ondansetron 4 MG/2 ML SDV IVPUSH ONE (17:01)
[2019-09-25] MEDS ORDERED: methylPREDNISolone Sodium Succinate 500 MG/4 ML SDV IVPUSH ONE (17:02)
[2019-09-25] MEDS ORDERED: Morphine 2 MG/ML Syringe IVPUSH ONE ×2 (17:03→18:03)
[2019-09-25] MEDS ORDERED: methylPREDNISolone Sodium Succinate 125 MG/2 ML SDV IVPUSH ONE (17:12)
[2019-09-25] MEDS ORDERED: Sodium Chloride 0.9% 1,000 ML IV SCH (17:15)
[2019-09-25] MEDS ORDERED: Iopamidol 755 Mg/ML 100 ML Bottle IV ONE (18:13)
[2019-09-25 18:18] VITALS: BP 131/83; PULSE 90
--- NOTE | 2019-09-25 18:20 | EDM.PDOC ---
ED HPI GENERAL MEDICAL PROBLEM - General Chief Complaint: Abdominal Pain Stated Complaint: COLITIS Time Seen by Provider: 09/25/19 16:35 Source of Information: Reports: Patient History Limitations: Reports: No Limitations - History of Present Illness INITIAL COMMENTS - FREE TEXT/NARRATIVE: Patient presented to the ED because of bloody stools since yesterday. She also c /o abdominal pain, 9/10, with associated nausea but no vomiting. There is no urinary symptoms or changes in bowel movement except for the bright red blood. Left Lower Anterior Abdomen Pain Score (Numeric/FACES): 8 - Related Data Allergies Allergy/AdvReac Type Severity Reaction Status Date / Time diclofenac Allergy Wheezing Verified 09/25/19 16:24 fluconazole Allergy Wheezing Verified 09/25/19 16:24 ketorolac [From Toradol] Allergy Respiratory Verified 09/25/19 16:24 Distress ketorolac tromethamine Allergy Hives Verified 09/25/19 16:24 [From Toradol] propoxyphene Allergy Wheezing Verified 09/25/19 16:24 [From Darvocet-N] tramadol Allergy Shortness Verified 09/25/19 16:24 of Breath steroid Allergy Agitation Uncoded 09/25/19 16:24 Home Meds: Home Meds Acetaminophen [Tylenol Extra Strength] 1,000 mg PO Q4H PRN 11/15/18 [History] Naproxen Sodium 220 mg PO BID PRN 11/15/18 [History] FLUoxetine HCl [Fluoxetine HCl] 20 mg PO DAILY 09/25/19 [History] Insulin Regular, Human [HumuLIN R] 100 units SQ DAILY 09/25/19 [History] Mirtazapine 45 mg PO DAILY 09/25/19 [History] Sulfamethoxazole/Trimethoprim [Sulfamethoxazole-Tmp Ds Tablet] 1 each PO BID 11/08 [History] metFORMIN [Glucophage] 1,000 mg PO DAILY 09/25/19 [History] Past Medical History HEENT History: Reports: None Cardiovascular History: Reports: Hypertension Gastrointestinal History: Reports: Inflammatory Bowel Disease Other Gastrointestinal History: hx ulcerative colitis, ABD PAIN Genitourinary History: Reports: Renal Calculus, UTI, Recurrent Other Genitourinary History: Kidney stones, [employer] History: Reports: Dysfunctional Uterine Bleeding Other [employer] History: . Musculoskeletal History: Reports: Back Pain, Chronic Neurological History: Reports: Migraines Psychiatric History: Reports: Addiction, Anxiety, Autism, Depression, Other ( See Below) Other Psychiatric History: Pain contract has been broken. Endocrine/Metabolic History: Reports: Diabetes, Type II, Obesity/BMI 30+ Other Endocrine/Metabolic History: Denies taking any meds at this time, diet controlled. Hematologic History: Reports: None Immunologic History: Reports: None Oncologic (Cancer) History: Reports: None Dermatologic History: Reports: Other (See Below) Other Dermatologic History: States she was MRSA positive in November 2017. - Infectious Disease History Infectious Disease History: Reports: Chicken Pox, MRSA - Past Surgical History Head Surgeries/Procedures: Reports: None HEENT Surgical History: Reports: Adenoidectomy, Naso-Sinus Surgery, Oral Surgery , Tonsillectomy Other Respiratory Surgeries/Procedures: unable to get information as of this time GI Surgical History: Reports: Appendectomy, Cholecystectomy, Colonoscopy Female Surgical History: Reports: Section, D&C, Hysterectomy, Other (See Below) Other Female Surgeries/Procedures: Vaginal hysterectomy. Social & Family History - Family History Family Medical History: Noncontributory - Tobacco Use Smoking Status *Q: Current Some Day Smoker Years of Tobacco use: 20 Packs/Tins Daily: 0 - Caffeine Use Caffeine Use: Reports: None - Living Situation & Occupation Occupation: Employed (Works at [employer]) ED ROS GENERAL - Review of Systems Review Of Systems: See Below Constitutional: Reports: No Symptoms HEENT: Reports: Eye Discharge Respiratory: Reports: No Symptoms Cardiovascular: Reports: No Symptoms Endocrine: Reports: No Symptoms GI/Abdominal: Reports: Abdominal Pain, Bloody Stool, Nausea. Denies: Vomiting : Reports: No Symptoms, Discharge, Dysuria Musculoskeletal: Reports: No Symptoms Skin: Reports: No Symptoms, Cyanosis, Jaundice ED EXAM, GI/ABD - Physical Exam Exam: See Below Exam Limited By: No Limitations General Appearance: Alert, No Apparent Distress Ears: Normal External Exam, Normal Canal, Hearing Grossly Normal Nose: Normal Inspection, Normal Mucosa, No Blood Throat/Mouth: Normal Inspection, Normal Lips, Normal Teeth Head: Atraumatic, Normocephalic Neck: Normal Inspection, Supple, Non-Tender Respiratory/Chest: No Respiratory Distress, Lungs Clear, Normal Breath Sounds Cardiovascular: Normal Peripheral Pulses, Regular Rate, Rhythm, No Edema GI/Abdominal Exam: Normal Bowel Sounds, Soft, No Organomegaly, Other (LLQ and RLQ T) Course - Vital Signs Text/Narrative:: labs/CT abd/pelvis was iscussed with patient and verbalized full understanding NS 1 L bolus Morphine 2 mg IV x2 Zofran 4 mg IV x1 Last Recorded V/S: Last Vital Signs Temp 37.2 C 09/25/19 16:29 Pulse 90 09/25/19 18:17 Resp 16 09/25/19 18:17 BP 131/83 09/25/19 18:17 Pulse Ox 96 09/25/19 18:17 - Orders/Labs/Meds Orders: Active Orders 24 hr Category Date Time Status Abdomen Pelvis w Cont [CT] Stat Exams 09/25/19 18:04 Ordered Sodium Chloride 0.9% [Normal Saline] 1,000 ml Med 09/25/19 17:15 Active IV ASDIRECTED Sodium Chloride 0.9% [Saline Flush] Med 09/25/19 17:00 Active 10 ml FLUSH ASDIRECTED PRN Saline Lock Insert [OM.PC] Routine Oth 09/25/19 17:00 Ordered Medication Orders Sodium Chloride (Normal Saline) 1,000 mls @ 999 mls/hr IV ASDIRECTED LYNETTE Last Admin: 09/25/19 17:22 Dose: 999 mls/hr Sodium Chloride (Saline Flush) 10 ml FLUSH ASDIRECTED PRN PRN Reason: Keep Vein Open Last Admin: 09/25/19 17:22 Dose: 10 ml Labs: Laboratory Tests 09/25/19 09/25/19 09/25/19 Range/Units 17:05 17:05 17:05 WBC 9.6 (4.5-12.0) X10-3/uL RBC 5.11 (3.23-5.20) x10(6)uL Hgb 14.2 (11.5-15.5) g/dL Hct 42.4 (30.0-51.3) % MCV 83.1 (80-96) fL MCH 27.8 (27.7-33.6) pg MCHC 33.4 (32.2-35.4) g/dL RDW 14.4 (11.5-15.5) % Plt Count 237 (125-369) X10(3)uL MPV 8.5 (7.4-10.4) fL Neut % (Auto) 62.7 (46-82) % Lymph % (Auto) 32.3 (13-37) % [place] % (Auto) 3.9 L (4-12) % Eos % (Auto) 1 (1.0-5.0) % Baso % (Auto) 1 (0-2) % Neut # (Auto) 6.0 (1.6-8.3) # Lymph # (Auto) 3.1 (0.6-5.0) # [place] # (Auto) 0.4 (0.0-1.3) # Eos # (Auto) 0.1 (0.0-0.8) # Baso # (Auto) 0.0 (0.0-0.2) # Sodium 138 (135-145) mmol/L Potassium 3.7 (3.5-5.3) mmol/L Chloride 103 (100-110) mmol/L Carbon Dioxide 22 (21-32) mmol/L BUN 13 (7-18) mg/dL Creatinine 0.9 (0.55-1.02) mg/dL Est Cr Clr Drug Dosing 61.47 mL/min Estimated GFR (MDRD) > 60 (>60) BUN/Creatinine Ratio 14.4 (9-20) Glucose 89 (80-116) mg/dL Calcium 9.2 (8.6-10.2) mg/dL Total Bilirubin 0.2 (0.1-1.3) mg/dL AST 54 H D (5-25) IU/L ALT 89 H (12-36) U/L Alkaline Phosphatase 84 (56-112) IU/L Total Protein 8.6 H (6.0-8.0) g/dL Albumin 4.0 (3.5-5.2) g/dL Globulin 4.6 g/dL Albumin/Globulin Ratio 0.9 Amylase 53 (25-115) U/L Lipase (73-393) U/L Urine Color Yellow (YELLOW) Urine Appearance Slightly cloudy (CLEAR) Urine pH 5.0 (5.0-6.5) Ur Specific [place] 1.020 (1.010-1.025) Urine Protein Negative (NEGATIVE) mg/dL Urine Glucose (UA) Normal (NORMAL) mg/dL Urine Ketones Negative (NEGATIVE) mg/dL Urine Occult Blood Negative (NEGATIVE) Urine Nitrite Negative (NEGATIVE) Urine Bilirubin Negative (NEGATIVE) Urine Urobilinogen Normal (NEGATIVE) mg/dL Ur Leukocyte Esterase Negative (NEGATIVE) Urine RBC 0-5 (0-5) Urine WBC 0-5 (0-5) Ur Squamous Epith Cells Many H (NS,R,O) Urine Bacteria Moderate H (NS) 09/25/19 Range/Units 17:05 WBC (4.5-12.0) X10-3/uL RBC (3.23-5.20) x10(6)uL Hgb (11.5-15.5) g/dL Hct (30.0-51.3) % MCV (80-96) fL MCH (27.7-33.6) pg MCHC (32.2-35.4) g/dL RDW (11.5-15.5) % Plt Count (125-369) X10(3)uL MPV (7.4-10.4) fL Neut % (Auto) (46-82) % Lymph % (Auto) (13-37) % [place] % (Auto) (4-12) % Eos % (Auto) (1.0-5.0) % Baso % (Auto) (0-2) % Neut # (Auto) (1.6-8.3) # Lymph # (Auto) (0.6-5.0) # [place] # (Auto) (0.0-1.3) # Eos # (Auto) (0.0-0.8) # Baso # (Auto) (0.0-0.2) # Sodium (135-145) mmol/L Potassium (3.5-5.3) mmol/L Chloride (100-110) mmol/L Carbon Dioxide (21-32) mmol/L BUN (7-18) mg/dL Creatinine (0.55-1.02) mg/dL Est Cr Clr Drug Dosing mL/min Estimated GFR (MDRD) (>60) BUN/Creatinine Ratio (9-20) Glucose (80-116) mg/dL Calcium (8.6-10.2) mg/dL Total Bilirubin (0.1-1.3) mg/dL AST (5-25) IU/L ALT (12-36) U/L Alkaline Phosphatase (56-112) IU/L Total Protein (6.0-8.0) g/dL Albumin (3.5-5.2) g/dL Globulin g/dL Albumin/Globulin Ratio Amylase (25-115) U/L Lipase 181 (73-393) U/L Urine Color (YELLOW) Urine Appearance (CLEAR) Urine pH (5.0-6.5) Ur Specific [place] (1.010-1.025) Urine Protein (NEGATIVE) mg/dL Urine Glucose (UA) (NORMAL) mg/dL Urine Ketones (NEGATIVE) mg/dL Urine Occult Blood (NEGATIVE) Urine Nitrite (NEGATIVE) Urine Bilirubin (NEGATIVE) Urine Urobilinogen (NEGATIVE) mg/dL Ur Leukocyte Esterase (NEGATIVE) Urine RBC (0-5) Urine WBC (0-5) Ur Squamous Epith Cells (NS,R,O) Urine Bacteria (NS) Meds: Medications Generic Name Dose Route Start Last Admin Trade Name Freq PRN Reason Stop Dose Admin Sodium Chloride 1,000 mls @ 999 mls/hr 09/25/19 17:15 09/25/19 17:22 Normal Saline IV 999 mls/hr ASDIRECTED LYNETTE Administration Sodium Chloride 10 ml 09/25/19 17:00 09/25/19 17:22 Saline Flush FLUSH 10 ml ASDIRECTED PRN Administration Keep Vein Open Discontinued Medications Generic Name Dose Route Start Last Admin Trade Name Freq PRN Reason Stop Dose Admin Iopamidol 100 ml 09/25/19 18:13 Isovue-370 (76%) IV 09/25/19 18:14 . DIRECTED ONE Methylprednisolone Sodium Succinate 250 mg 09/25/19 17:02 Solu-Medrol IVPUSH 09/25/19 17:03 ONETIME ONE Methylprednisolone Sodium Succinate 250 mg 09/25/19 17:12 09/25/19 17:25 Solu-Medrol IVPUSH 09/25/19 17:13 250 mg ONETIME ONE Administration Morphine Sulfate 2 mg 09/25/19 17:03 09/25/19 17:17 Morphine IVPUSH 09/25/19 17:04 2 mg ONETIME ONE Administration Morphine Sulfate 2 mg 09/25/19 18:03 09/25/19 18:10 Morphine IVPUSH 09/25/19 18:04 2 mg ONETIME ONE Administration Ondansetron HCl 4 mg 09/25/19 17:01 09/25/19 17:23 Zofran IVPUSH 09/25/19 17:02 4 mg ONETIME ONE Administration Departure - Departure Time of Disposition: 19:30 Disposition: Home, Self-Care 01 Condition: Good Clinical Impression: Ulcerative colitis - Discharge Information Referrals: PCP,None [Primary Care Provider] - Forms: ED Department Discharge Additional Instructions: Quit taking ibuprofen it can make the flare up of your ulcerative colitis worse Take tramadol 100 mg with tylenol 1000 mg every 8 hours as needed for pain Prednisolone 30 mg, 2 tablets once daily for 10 days You need to look for a primary care doctor in town who can handle your medical illnes. We don't do follow up in the ED Sepsis Event Note - Evaluation Sepsis Screening Result: No Definite Risk - Focused Exam Vital Signs: Vital Signs Temp Pulse Resp BP Pulse Ox 09/25/19 18:17 90 16 131/83 96 09/25/19 16:29 37.2 C 102 H 18 139/93 H 99 Date Exam was Performed: 09/25/19 Time Exam was Performed: 18:24 - My Orders Last 24 Hours: My Active Orders 09/25/19 17:00 Sodium Chloride 0.9% [Saline Flush] 10 ml FLUSH ASDIRECTED PRN Saline Lock Insert [OM.PC] Routine 09/25/19 17:15 Sodium Chloride 0.9% [Normal Saline] 1,000 ml IV ASDIRECTED 09/25/19 18:04 Abdomen Pelvis w Cont [CT] Stat - Assessment/Plan Last 24 Hours: My Active Orders 09/25/19 17:00 Sodium Chloride 0.9% [Saline Flush] 10 ml FLUSH ASDIRECTED PRN Saline Lock Insert [OM.PC] Routine 09/25/19 17:15 Sodium Chloride 0.9% [Normal Saline] 1,000 ml IV ASDIRECTED 09/25/19 18:04 Abdomen Pelvis w Cont [CT] Stat
== END 2019-09-25 19:07 | disposition home or self-care (01) ==
LOC: FB.ED 16:19
DX: K51.90 Ulcerative colitis, unspecified, without complications (principal); I10 Essential (primary) hypertension; E11.9 Type 2 diabetes mellitus without complications; E66.9 Obesity, unspecified; F41.9 Anxiety disorder, unspecified; F32.9 Major depressive disorder, single episode, unspecified; F17.200 Nicotine dependence, unspecified, uncomplicated; Z88.6 Allergy status to analgesic agent; Z88.5 Allergy status to narcotic agent; Z88.8 Allergy status to other drugs, medicaments and biological substances; Z79.899 Other long term (current) drug therapy; Z79.4 Long term (current) use of insulin; Z87.442 Personal history of urinary calculi; Z90.49 Acquired absence of other specified parts of digestive tract; Z90.710 Acquired absence of both cervix and uterus; Z68.36 Body mass index [BMI] 36.0-36.9, adult
CPT/HCPCS: 36415; 74177; 80053; 81001; 82150; 83690; 85025; 96361; 96374; 96375; 96376; 99284-25; J2270; J2405; J2930; J7030; Q9967

== ENCOUNTER 2019-10-21 14:34 | Emergency (ER) | payer MEDICAID ==
[2019-10-21 14:47] VITALS: BP 161/139; PULSE 138
[2019-10-21] MEDS ORDERED: Acetaminophen/Codeine 300-30 MG Tab PO ONE (15:00)
--- NOTE | 2019-10-21 15:03 | EDM.PDOC ---
ED HPI GENERAL MEDICAL PROBLEM - General Chief Complaint: Abdominal Pain Stated Complaint: FEVER,ABD PAIN Time Seen by Provider: 10/21/19 15:00 Source of Information: Reports: Patient, Old Records History Limitations: Reports: No Limitations - History of Present Illness INITIAL COMMENTS - FREE TEXT/NARRATIVE: Hillary returns to [facility] ED with a relapse of LLQ pain associated with loose stools admixed with BRB and mucous, significance unknown. She has felt warm with the diarrhea over the past 2 days, with LLQ pain beginning this am. The pain is anterior, nonradiating, and steady at 7/10. There are no voiding sxs. She was seen most recently on September 24 for similar presentation, workup including Abd CT was inconclusive, managed sxs. She had a colonscopy last year, results negative. She denies travel, food exposure, or known hx of IBD. She has tried no meds or interventions. Middle Abdomen Pain Score (Numeric/FACES): 4 - Related Data Allergies Allergy/AdvReac Type Severity Reaction Status Date / Time diclofenac Allergy Wheezing Verified 09/25/19 16:24 fluconazole Allergy Wheezing Verified 09/25/19 16:24 ketorolac [From Toradol] Allergy Respiratory Verified 09/25/19 16:24 Distress ketorolac tromethamine Allergy Hives Verified 09/25/19 16:24 [From Toradol] propoxyphene Allergy Wheezing Verified 09/25/19 16:24 [From Darvocet-N] tramadol Allergy Shortness Verified 09/25/19 16:24 of Breath steroid Allergy Agitation Uncoded 09/25/19 16:24 Home Meds: Home Meds Acetaminophen [Tylenol Extra Strength] 1,000 mg PO Q4H PRN 11/15/18 [History] Naproxen Sodium 220 mg PO BID PRN 11/15/18 [History] Acetaminophen/HYDROcodone [[place] 325-5 MG] 1 tab PO Q4H PRN #10 tab 09/25/19 [Rx ] FLUoxetine HCl [Fluoxetine HCl] 20 mg PO DAILY 09/25/19 [History] Insulin Regular, Human [HumuLIN R] 100 units SQ DAILY 09/25/19 [History] Mirtazapine 45 mg PO DAILY 09/25/19 [History] Sulfamethoxazole/Trimethoprim [Sulfamethoxazole-Tmp Ds Tablet] 1 each PO BID 11/08 [History] metFORMIN [Glucophage] 1,000 mg PO DAILY 09/25/19 [History] Past Medical History HEENT History: Reports: None Cardiovascular History: Reports: Hypertension Gastrointestinal History: Reports: Inflammatory Bowel Disease Other Gastrointestinal History: hx ulcerative colitis, ABD PAIN Genitourinary History: Reports: Renal Calculus, UTI, Recurrent Other Genitourinary History: Kidney stones, 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 Musculoskeletal History: Reports: Back Pain, Chronic Neurological History: Reports: Migraines Psychiatric History: Reports: Addiction, Anxiety, Autism, Depression, Other ( See Below) Other Psychiatric History: Pain contract has been broken. Endocrine/Metabolic History: Reports: Diabetes, Type II, Obesity/BMI 30+ Other Endocrine/Metabolic History: Denies taking any meds at this time, diet controlled. Hematologic History: Reports: None Immunologic History: Reports: None Oncologic (Cancer) History: Reports: None Dermatologic History: Reports: Other (See Below) Other Dermatologic History: States she was MRSA positive in November 2017. - Infectious Disease History Infectious Disease History: Reports: Chicken Pox, MRSA - Past Surgical History Head Surgeries/Procedures: Reports: None HEENT Surgical History: Reports: Adenoidectomy, Naso-Sinus Surgery, Oral Surgery , Tonsillectomy Other Respiratory Surgeries/Procedures: unable to get information as of this time GI Surgical History: Reports: Appendectomy, Cholecystectomy, Colonoscopy Female Surgical History: Reports: Section, D&C, Hysterectomy, Other (See Below) Other Female Surgeries/Procedures: Vaginal hysterectomy. Social & Family History - Family History Family Medical History: Noncontributory - Caffeine Use Caffeine Use: Reports: None - Living Situation & Occupation Occupation: Employed (Works at [employer]) ED ROS GENERAL - Review of Systems Review Of Systems: See Below Constitutional: Reports: Fever, Malaise, Decreased Appetite HEENT: Reports: No Symptoms Respiratory: Reports: No Symptoms Cardiovascular: Reports: No Symptoms Endocrine: Reports: No Symptoms GI/Abdominal: Reports: Abdominal Pain, Bloody Stool, Diarrhea, Decreased Appetite : Reports: No Symptoms Musculoskeletal: Reports: No Symptoms Skin: Reports: No Symptoms Neurological: Reports: No Symptoms Psychiatric: Reports: No Symptoms Hematologic/Lymphatic: Reports: No Symptoms Immunologic: Reports: No Symptoms ED EXAM, GI/ABD - Physical Exam Exam: See Below Exam Limited By: No Limitations General Appearance: Alert, WD/WN, Mild Distress Eyes: Bilateral: Normal Appearance, EOMI Ears: Normal External Exam Nose: Normal Inspection Throat/Mouth: Normal Inspection, Normal Oropharynx Head: Normocephalic Neck: Normal Inspection, Supple, Non-Tender, Full Range of Motion Respiratory/Chest: Lungs Clear, Normal Breath Sounds Cardiovascular: Regular Rate, Rhythm, No Murmur GI/Abdominal Exam: Normal Bowel Sounds, Soft, No Organomegaly, No Distention, No Mass, Tender (LLQ) (Female) Exam: Deferred Rectal (Female) Exam: Deferred Back Exam: Normal Inspection Extremities: Normal Inspection Neurological: Alert, Oriented, CN II-XII Intact, No Motor/Sensory Deficits Psychiatric: Normal Affect, Normal Mood Skin Exam: Warm, Dry, Intact, Normal Color, No Rash Lymphatic: No Adenopathy Course - Vital Signs Text/Narrative:: Following assessment, screening labs were performed noting CBC and BMP baseline , with CRP 1.3, and Lactic a 3.2, both mildly elevated. The drug screen was neg , and the UA was also negative. Suspected colitis, possibly c. diff. I administered Tylenol #3 for pain and sent home with stool collection containers to return to the ED for analysis, as she was unable to stool here. Last Recorded V/S: Last Vital Signs Temp 36.8 C 10/21/19 14:34 Pulse 138 H 10/21/19 14:34 Resp 16 10/21/19 14:34 BP 161/139 H 10/21/19 14:34 Pulse Ox 99 10/21/19 14:34 - Orders/Labs/Meds Orders: Active Orders 24 hr Category Date Time Status C DIFFICILE AG/TOXIN W/REFLEX [RM] Urgent Lab 10/21/19 15:51 Ordered Hemoccult [OCCULT BLOOD DIAGNOSTIC] [OP] Stat Lab 10/21/19 15:51 Ordered STOOL CULTURE Urgent Lab 10/21/19 15:51 Ordered Labs: Laboratory Tests 10/21/19 10/21/19 10/21/19 Range/Units 15:05 15:05 15:15 WBC 11.5 (4.5-12.0) X10-3/uL RBC 5.10 (3.23-5.20) x10(6)uL Hgb 13.4 (11.5-15.5) g/dL Hct 42.7 (30.0-51.3) % MCV 83.6 (80-96) fL MCH 26.2 L (27.7-33.6) pg MCHC 31.4 L (32.2-35.4) g/dL RDW 14.4 (11.5-15.5) % Plt Count 209 (125-369) X10(3)uL MPV 9.2 (7.4-10.4) fL Neut % (Auto) 65.3 (46-82) % Lymph % (Auto) 28.9 (13-37) % [place] % (Auto) 5.0 (4-12) % Eos % (Auto) 1 (1.0-5.0) % Baso % (Auto) 0 (0-2) % Neut # (Auto) 7.5 (1.6-8.3) # Lymph # (Auto) 3.3 (0.6-5.0) # [place] # (Auto) 0.6 (0.0-1.3) # Eos # (Auto) 0.1 (0.0-0.8) # Baso # (Auto) 0.0 (0.0-0.2) # Sodium (135-145) mmol/L Potassium (3.5-5.3) mmol/L Chloride (100-110) mmol/L Carbon Dioxide (21-32) mmol/L BUN (7-18) mg/dL Creatinine (0.55-1.02) mg/dL Est Cr Clr Drug Dosing mL/min Estimated GFR (MDRD) (>60) BUN/Creatinine Ratio (9-20) Glucose (80-116) mg/dL Lactic Acid (0.4-2.0) mmol/L Calcium (8.6-10.2) mg/dL C-Reactive Protein (0.5-0.9) mg/dL Lipase (73-393) U/L Urine Color Yellow (YELLOW) Urine Appearance Slightly cloudy (CLEAR) Urine pH 7.0 H (5.0-6.5) Ur Specific [place] 1.010 (1.010-1.025) Urine Protein Negative (NEGATIVE) mg/dL Urine Glucose (UA) Normal (NORMAL) mg/dL Urine Ketones Negative (NEGATIVE) mg/dL Urine Occult Blood Negative (NEGATIVE) Urine Nitrite Negative (NEGATIVE) Urine Bilirubin Negative (NEGATIVE) Urine Urobilinogen Normal (NEGATIVE) mg/dL Ur Leukocyte Esterase Negative (NEGATIVE) Urine RBC 0-5 (0-5) Urine WBC 0-5 (0-5) Ur Squamous Epith Cells Few H (NS,R,O) Amorphous Sediment Few Urine Bacteria Few H (NS) Urine Opiates Screen Negative (NEGATIVE) Ur Oxycodone Screen Negative (NEGATIVE) Ur Propoxyphene Screen Negative (NEGATIVE) Ur Barbituates Screen Negative (NEGATIVE) Ur Tricyclics Screen Negative (NEGATIVE) Ur Phencyclidine Scrn Negative (NEGATIVE) Ur Amphetamine Screen Negative (NEGATIVE) Urine MDMA Screen Negative (NEGATIVE) U Benzodiazepines Scrn Negative (NEGATIVE) U Cocaine Metab Screen Negative (NEGATIVE) U Marijuana (THC) Screen Negative (NEGATIVE) 10/21/19 10/21/19 10/21/19 Range/Units 15:15 15:15 15:15 WBC (4.5-12.0) X10-3/uL RBC (3.23-5.20) x10(6)uL Hgb (11.5-15.5) g/dL Hct (30.0-51.3) % MCV (80-96) fL MCH (27.7-33.6) pg MCHC (32.2-35.4) g/dL RDW (11.5-15.5) % Plt Count (125-369) X10(3)uL MPV (7.4-10.4) fL Neut % (Auto) (46-82) % Lymph % (Auto) (13-37) % [place] % (Auto) (4-12) % Eos % (Auto) (1.0-5.0) % Baso % (Auto) (0-2) % Neut # (Auto) (1.6-8.3) # Lymph # (Auto) (0.6-5.0) # [place] # (Auto) (0.0-1.3) # Eos # (Auto) (0.0-0.8) # Baso # (Auto) (0.0-0.2) # Sodium 141 (135-145) mmol/L Potassium 3.5 (3.5-5.3) mmol/L Chloride 105 (100-110) mmol/L Carbon Dioxide 20 L (21-32) mmol/L BUN 13 (7-18) mg/dL Creatinine 0.9 (0.55-1.02) mg/dL Est Cr Clr Drug Dosing 61.47 mL/min Estimated GFR (MDRD) > 60 (>60) BUN/Creatinine Ratio 14.4 (9-20) Glucose 171 H D (80-116) mg/dL Lactic Acid 3.2 H* (0.4-2.0) mmol/L Calcium 9.1 (8.6-10.2) mg/dL C-Reactive Protein 1.3 H (0.5-0.9) mg/dL Lipase (73-393) U/L Urine Color (YELLOW) Urine Appearance (CLEAR) Urine pH (5.0-6.5) Ur Specific [place] (1.010-1.025) Urine Protein (NEGATIVE) mg/dL Urine Glucose (UA) (NORMAL) mg/dL Urine Ketones (NEGATIVE) mg/dL Urine Occult Blood (NEGATIVE) Urine Nitrite (NEGATIVE) Urine Bilirubin (NEGATIVE) Urine Urobilinogen (NEGATIVE) mg/dL Ur Leukocyte Esterase (NEGATIVE) Urine RBC (0-5) Urine WBC (0-5) Ur Squamous Epith Cells (NS,R,O) Amorphous Sediment Urine Bacteria (NS) Urine Opiates Screen (NEGATIVE) Ur Oxycodone Screen (NEGATIVE) Ur Propoxyphene Screen (NEGATIVE) Ur Barbituates Screen (NEGATIVE) Ur Tricyclics Screen (NEGATIVE) Ur Phencyclidine Scrn (NEGATIVE) Ur Amphetamine Screen (NEGATIVE) Urine MDMA Screen (NEGATIVE) U Benzodiazepines Scrn (NEGATIVE) U Cocaine Metab Screen (NEGATIVE) U Marijuana (THC) Screen (NEGATIVE) 10/21/19 Range/Units 15:15 WBC (4.5-12.0) X10-3/uL RBC (3.23-5.20) x10(6)uL Hgb (11.5-15.5) g/dL Hct (30.0-51.3) % MCV (80-96) fL MCH (27.7-33.6) pg MCHC (32.2-35.4) g/dL RDW (11.5-15.5) % Plt Count (125-369) X10(3)uL MPV (7.4-10.4) fL Neut % (Auto) (46-82) % Lymph % (Auto) (13-37) % [place] % (Auto) (4-12) % Eos % (Auto) (1.0-5.0) % Baso % (Auto) (0-2) % Neut # (Auto) (1.6-8.3) # Lymph # (Auto) (0.6-5.0) # [place] # (Auto) (0.0-1.3) # Eos # (Auto) (0.0-0.8) # Baso # (Auto) (0.0-0.2) # Sodium (135-145) mmol/L Potassium (3.5-5.3) mmol/L Chloride (100-110) mmol/L Carbon Dioxide (21-32) mmol/L BUN (7-18) mg/dL Creatinine (0.55-1.02) mg/dL Est Cr Clr Drug Dosing mL/min Estimated GFR (MDRD) (>60) BUN/Creatinine Ratio (9-20) Glucose (80-116) mg/dL Lactic Acid (0.4-2.0) mmol/L Calcium (8.6-10.2) mg/dL C-Reactive Protein (0.5-0.9) mg/dL Lipase 261 (73-393) U/L Urine Color (YELLOW) Urine Appearance (CLEAR) Urine pH (5.0-6.5) Ur Specific [place] (1.010-1.025) Urine Protein (NEGATIVE) mg/dL Urine Glucose (UA) (NORMAL) mg/dL Urine Ketones (NEGATIVE) mg/dL Urine Occult Blood (NEGATIVE) Urine Nitrite (NEGATIVE) Urine Bilirubin (NEGATIVE) Urine Urobilinogen (NEGATIVE) mg/dL Ur Leukocyte Esterase (NEGATIVE) Urine RBC (0-5) Urine WBC (0-5) Ur Squamous Epith Cells (NS,R,O) Amorphous Sediment Urine Bacteria (NS) Urine Opiates Screen (NEGATIVE) Ur Oxycodone Screen (NEGATIVE) Ur Propoxyphene Screen (NEGATIVE) Ur Barbituates Screen (NEGATIVE) Ur Tricyclics Screen (NEGATIVE) Ur Phencyclidine Scrn (NEGATIVE) Ur Amphetamine Screen (NEGATIVE) Urine MDMA Screen (NEGATIVE) U Benzodiazepines Scrn (NEGATIVE) U Cocaine Metab Screen (NEGATIVE) U Marijuana (THC) Screen (NEGATIVE) Meds: Medications Discontinued Medications Generic Name Dose Route Start Last Admin Trade Name Freq PRN Reason Stop Dose Admin Acetaminophen/Codeine Phosphate 1 tab 10/21/19 15:00 10/21/19 15:13 Tylenol With Codeine No.3 300mg/30mg PO 10/21/19 15:01 1 tab ONETIME ONE Administration Departure - Departure Time of Disposition: 16:51 Disposition: Home, Self-Care 01 Condition: Fair Clinical Impression: Colitis - Discharge Information *PRESCRIPTION DRUG MONITORING PROGRAM REVIEWED*: Not Applicable *COPY OF PRESCRIPTION DRUG MONITORING REPORT IN PATIENT PAULA: Not Applicable Referrals: Francisco Mendes MD [Primary Care Provider] - Forms: ED Department Discharge Sepsis Event Note - Evaluation Sepsis Screening Result: Possible Sepsis Risk - Focused Exam Vital Signs: Vital Signs Temp Pulse Resp BP Pulse Ox 10/21/19 14:34 36.8 C 138 H 16 161/139 H 99 Date Exam was Performed: 10/21/19 Time Exam was Performed: 16:53 - Problem List & Annotations (1) Colitis SNOMED Code(s): 29100474 Code(s): K52.9 - NONINFECTIVE GASTROENTERITIS AND COLITIS, UNSPECIFIED Status: Acute Current Visit: Yes Annotation/Comment:: Symptomatic cares, and return stool specimens to ED for analysis. - Problem List Review Problem List Initiated/Reviewed/Updated: Yes - My Orders Last 24 Hours: My Active Orders 10/21/19 15:51 C DIFFICILE AG/TOXIN W/REFLEX [RM] Urgent Hemoccult [OCCULT BLOOD DIAGNOSTIC] [OP] Stat STOOL CULTURE Urgent - Assessment/Plan Last 24 Hours: My Active Orders 10/21/19 15:51 C DIFFICILE AG/TOXIN W/REFLEX [RM] Urgent Hemoccult [OCCULT BLOOD DIAGNOSTIC] [OP] Stat STOOL CULTURE Urgent Assessment:: Follow up in ED.
== END 2019-10-21 17:04 | disposition home or self-care (01) ==
LOC: FB.ED 14:34
DX: K52.9 Noninfective gastroenteritis and colitis, unspecified (principal); E11.9 Type 2 diabetes mellitus without complications; E66.9 Obesity, unspecified; Z68.34 Body mass index [BMI] 34.0-34.9, adult; F41.9 Anxiety disorder, unspecified; F32.9 Major depressive disorder, single episode, unspecified; Z87.440 Personal history of urinary (tract) infections; Z88.6 Allergy status to analgesic agent; Z88.8 Allergy status to other drugs, medicaments and biological substances; Z79.4 Long term (current) use of insulin; Z79.899 Other long term (current) drug therapy
CPT/HCPCS: 36415; 80048; 80305; 81001; 83605; 83690; 85025; 86140; 99284; A9270

== ENCOUNTER 2019-12-10 17:50 | Emergency (ER) | payer MEDICAID ==
[2019-12-10] MEDS ORDERED: Acetaminophen/Codeine 300-30 MG Tab PO ONE (17:51)
[2019-12-10] MEDS ORDERED: Ondansetron 4 MG Tab.DIS PO ONE ×2 (17:51→18:50)
[2019-12-10 18:17] VITALS: BP 106/67; PULSE 69
[2019-12-10] MEDS ORDERED: Acetaminophen/oxyCODONE 325-5 MG Tab PO PRN (18:50)
--- NOTE | 2019-12-10 19:31 | EDM.PDOC ---
ED HPI GENERAL MEDICAL PROBLEM - General Chief Complaint: Headache Stated Complaint: RMO Time Seen by Provider: 12/10/19 18:25 Source of Information: Reports: Patient History Limitations: Reports: No Limitations - History of Present Illness INITIAL COMMENTS - FREE TEXT/NARRATIVE: Patient presented to the ED because of bifrontal headache radiating to both temples. She also c/o nausea and photophobia. there is no fever,chills, or neck stiffness. She has a history of migraine and she took her fioricet and compazine without any relief. Headache Pain Score (Numeric/FACES): 8 - Related Data Allergies Allergy/AdvReac Type Severity Reaction Status Date / Time diclofenac Allergy Wheezing Verified 09/25/19 16:24 fluconazole Allergy Wheezing Verified 09/25/19 16:24 ketorolac [From Toradol] Allergy Respiratory Verified 09/25/19 16:24 Distress ketorolac tromethamine Allergy Hives Verified 09/25/19 16:24 [From Toradol] propoxyphene Allergy Wheezing Verified 09/25/19 16:24 [From Darvocet-N] tramadol Allergy Shortness Verified 09/25/19 16:24 of Breath steroid Allergy Agitation Uncoded 09/25/19 16:24 Home Meds: Home Meds Naproxen Sodium 220 mg PO BID PRN 11/15/18 [History] FLUoxetine HCl [Fluoxetine HCl] 20 mg PO DAILY 09/25/19 [History] Insulin Regular, Human [HumuLIN R] 100 units SQ DAILY 09/25/19 [History] Mirtazapine 45 mg PO DAILY 09/25/19 [History] Sulfamethoxazole/Trimethoprim [Sulfamethoxazole-Tmp Ds Tablet] 1 each PO BID 09/25/19 [History] metFORMIN [Glucophage] 1,000 mg PO DAILY 09/25/19 [History] Past Medical History HEENT History: Reports: None Cardiovascular History: Reports: Hypertension Gastrointestinal History: Reports: Inflammatory Bowel Disease Other Gastrointestinal History: hx ulcerative colitis, ABD PAIN Genitourinary History: Reports: Renal Calculus, UTI, Recurrent Other Genitourinary History: Kidney stones, 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 Musculoskeletal History: Reports: Back Pain, Chronic Neurological History: Reports: Migraines Psychiatric History: Reports: Addiction, Anxiety, Autism, Depression, Other (See Below) Other Psychiatric History: Pain contract has been broken. Endocrine/Metabolic History: Reports: Diabetes, Type II, Obesity/BMI 30+ Other Endocrine/Metabolic History: Denies taking any meds at this time, diet controlled. Hematologic History: Reports: None Immunologic History: Reports: None Oncologic (Cancer) History: Reports: None Dermatologic History: Reports: Other (See Below) Other Dermatologic History: States she was MRSA positive in November 2017. - Infectious Disease History Infectious Disease History: Reports: Chicken Pox, MRSA - Past Surgical History Head Surgeries/Procedures: Reports: None HEENT Surgical History: Reports: Adenoidectomy, Naso-Sinus Surgery, Oral Surgery, Tonsillectomy Other Respiratory Surgeries/Procedures: unable to get information as of this time GI Surgical History: Reports: Appendectomy, Cholecystectomy, Colonoscopy Female Surgical History: Reports: Section, D&C, Hysterectomy, Other (See Below) Other Female Surgeries/Procedures: Vaginal hysterectomy. Social & Family History - Family History Family Medical History: Noncontributory - Caffeine Use Caffeine Use: Reports: None - Living Situation & Occupation Occupation: Employed (Works at [employer] - Review of Systems Review Of Systems: See Below Constitutional: Reports: No Symptoms HEENT: Reports: No Symptoms Respiratory: Reports: No Symptoms Cardiovascular: Reports: No Symptoms Endocrine: Reports: No Symptoms GI/Abdominal: Reports: Nausea. Denies: Vomiting : Reports: No Symptoms Musculoskeletal: Reports: No Symptoms Skin: Reports: No Symptoms Neurological: Reports: Headache Psychiatric: Reports: No Symptoms Hematologic/Lymphatic: Reports: No Symptoms - Physical Exam Exam: See Below Exam Limited By: No Limitations General Appearance: Alert, No Apparent Distress Eye Exam: Bilateral Eye: PERRL Ears: Normal External Exam, Normal Canal, Hearing Grossly Normal Nose: Normal Inspection, Normal Mucosa Throat/Mouth: Normal Inspection, Normal Lips, Normal Teeth, Normal Gums Head Exam: Atraumatic, Normocephalic Neck: Normal Inspection, Supple, Non-Tender, Full Range of Motion Respiratory/Chest: No Respiratory Distress, Lungs Clear, Normal Breath Sounds Cardiovascular: Normal Peripheral Pulses, Regular Rate, Rhythm, No Edema, No Gallop GI/Abdominal: Normal Bowel Sounds, Soft, Non-Tender, No Organomegaly Neuro Exam (Abbreviated): Alert, Oriented, CN II-XII Intact, Normal Cognition, Normal Gait Back Exam: Normal Inspection, Full Range of Motion Extremities: Normal Inspection, Normal Range of Motion Course - Vital Signs Text/Narrative:: percocet 5/325, 2 po x1 zofran ODT 4 mg po x1 Last Recorded V/S: Last Vital Signs Temp 36.9 C 12/10/19 18:16 Pulse 69 12/10/19 18:16 Resp 16 12/10/19 18:16 BP 106/67 12/10/19 18:16 Pulse Ox 100 12/10/19 18:16 - Orders/Labs/Meds Meds: Medications Discontinued Medications Generic Name Dose Route Start Last Admin Trade Name Freq PRN Reason Stop Dose Admin Acetaminophen/Codeine Phosphate 4 tab 12/10/19 17:51 Tylenol With Codeine No.3 300mg/30mg PO 12/10/19 17:52 .STK-MED ONE Ondansetron HCl 4 mg 12/10/19 18:50 12/10/19 19:26 Zofran Odt PO 12/10/19 18:51 4 mg ONETIME ONE Administration Ondansetron HCl 16 mg 12/10/19 17:51 Zofran Odt PO 12/10/19 17:52 .STK-MED ONE Oxycodone/Acetaminophen 2 tab 12/10/19 18:50 12/10/19 19:25 Percocet 325-5 Mg PO 2 tab ONETIME PRN Administration Pain Departure - Departure Time of Disposition: 19:35 Disposition: Home, Self-Care 01 Condition: Good Clinical Impression: Migraine headache - Discharge Information Instructions: Migraine Headache Referrals: PCP,None [Primary Care Provider] - Forms: ED Department Discharge Additional Instructions: please read discharge instructions on migraine take zofran odt 4 mg every 4 hours as needed for nausea norco/hydrocodone 5/325, take 1-2 tablets every 4-6 hours as needed for pain follow up as needed Sepsis Event Note (ED) - Evaluation Sepsis Screening Result: No Definite Risk
== END 2019-12-10 19:30 | disposition home or self-care (01) ==
LOC: FB.ED 17:50
DX: G43.909 Migraine, unspecified, not intractable, without status migrainosus (principal); I10 Essential (primary) hypertension; F41.9 Anxiety disorder, unspecified; F32.9 Major depressive disorder, single episode, unspecified; E11.9 Type 2 diabetes mellitus without complications; E66.9 Obesity, unspecified; Z68.35 Body mass index [BMI] 35.0-35.9, adult; Z88.8 Allergy status to other drugs, medicaments and biological substances; Z88.5 Allergy status to narcotic agent; Z79.4 Long term (current) use of insulin; Z79.899 Other long term (current) drug therapy
CPT/HCPCS: 99283; A9270

== ENCOUNTER 2020-01-14 11:46 | Emergency (ER) | payer MEDICAID ==
[2020-01-14] MEDS ORDERED: hydrOXYzine HCl 50 MG/ML SDV IM ONE (13:03)
[2020-01-14] MEDS ORDERED: Acetaminophen/HYDROcodone 325-5 MG Tab PO STA (13:03)
[2020-01-14 13:04] VITALS: BP 126/68; PULSE 64
--- NOTE | 2020-01-14 13:06 | EDM.PDOC ---
ED HPI GENERAL MEDICAL PROBLEM - General Stated Complaint: MIGRAINE Time Seen by Provider: 01/14/20 11:55 Source of Information: Reports: Patient History Limitations: Reports: No Limitations - History of Present Illness INITIAL COMMENTS - FREE TEXT/NARRATIVE: Patient presented to the ED because of headache,10/10, throbbing over the left temporal area radiating to the mid occipital area. She also c/o photophobia, N/V. there is no associated fever/chills or neck stiffness. She has a history of migraine and she took her medications which didn't help. Treatments [employer]: Reports: Other Medication(s) Headache Pain Score (Numeric/FACES): 7 - Related Data Allergies Allergy/AdvReac Type Severity Reaction Status Date / Time diclofenac Allergy Wheezing Verified 09/25/19 16:24 fluconazole Allergy Wheezing Verified 09/25/19 16:24 ketorolac [From Toradol] Allergy Respiratory Verified 09/25/19 16:24 Distress ketorolac tromethamine Allergy Hives Verified 09/25/19 16:24 [From Toradol] propoxyphene Allergy Wheezing Verified 09/25/19 16:24 [From Darvocet-N] tramadol Allergy Shortness Verified 09/25/19 16:24 of Breath steroid Allergy Agitation Uncoded 09/25/19 16:24 Home Meds: Home Meds Naproxen Sodium 220 mg PO BID PRN 11/15/18 [History] FLUoxetine HCl [Fluoxetine HCl] 20 mg PO DAILY 09/25/19 [History] Insulin Regular, Human [HumuLIN R] 100 units SQ DAILY 09/25/19 [History] Mirtazapine 45 mg PO DAILY 09/25/19 [History] Sulfamethoxazole/Trimethoprim [Sulfamethoxazole-Tmp Ds Tablet] 1 each PO BID 09/25/19 [History] metFORMIN [Glucophage] 1,000 mg PO DAILY 09/25/19 [History] Acetaminophen/HYDROcodone [Starr 325-5 MG] 1 - 2 tab PO Q4H PRN #6 tab 01/14/20 [Rx] Past Medical History HEENT History: Reports: None Cardiovascular History: Reports: Hypertension Gastrointestinal History: Reports: Inflammatory Bowel Disease Other Gastrointestinal History: hx ulcerative colitis, ABD PAIN Genitourinary History: Reports: Renal Calculus, UTI, Recurrent Other Genitourinary History: Kidney stones, 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 Musculoskeletal History: Reports: Back Pain, Chronic Neurological History: Reports: Migraines Psychiatric History: Reports: Addiction, Anxiety, Autism, Depression, Other (See Below) Other Psychiatric History: Pain contract has been broken. Endocrine/Metabolic History: Reports: Diabetes, Type II, Obesity/BMI 30+ Other Endocrine/Metabolic History: Denies taking any meds at this time, diet controlled. Hematologic History: Reports: None Immunologic History: Reports: None Oncologic (Cancer) History: Reports: None Dermatologic History: Reports: Other (See Below) Other Dermatologic History: States she was MRSA positive in November 2017. - Infectious Disease History Infectious Disease History: Reports: Chicken Pox, MRSA - Past Surgical History Head Surgeries/Procedures: Reports: None HEENT Surgical History: Reports: Adenoidectomy, Naso-Sinus Surgery, Oral Surgery, Tonsillectomy Other Respiratory Surgeries/Procedures: unable to get information as of this time GI Surgical History: Reports: Appendectomy, Cholecystectomy, Colonoscopy Female Surgical History: Reports: Section, D&C, Hysterectomy, Other (See Below) Other Female Surgeries/Procedures: Vaginal hysterectomy. Social & Family History - Family History Family Medical History: Noncontributory - Caffeine Use Caffeine Use: Reports: None - Living Situation & Occupation Occupation: Employed (Works at [employer] [facility] - Review of Systems Review Of Systems: See Below Constitutional: Reports: No Symptoms HEENT: Reports: No Symptoms Respiratory: Reports: No Symptoms Cardiovascular: Reports: No Symptoms Endocrine: Reports: No Symptoms GI/Abdominal: Reports: No Symptoms : Reports: No Symptoms Musculoskeletal: Reports: No Symptoms Skin: Reports: No Symptoms Neurological: Reports: Headache Psychiatric: Reports: No Symptoms Hematologic/Lymphatic: Reports: No Symptoms - Physical Exam Exam: See Below Exam Limited By: No Limitations General Appearance: Alert, No Apparent Distress Eye Exam: Bilateral Eye: PERRL Ears: Normal External Exam, Normal Canal, Hearing Grossly Normal Nose: Normal Inspection, Normal Mucosa Throat/Mouth: Normal Inspection, Normal Lips, Normal Teeth Head Exam: Atraumatic, Normocephalic Neck: Normal Inspection, Supple, Non-Tender, Full Range of Motion Respiratory/Chest: No Respiratory Distress, Lungs Clear, Normal Breath Sounds Cardiovascular: Normal Peripheral Pulses, Regular Rate, Rhythm, No Edema, No Gallop GI/Abdominal: Normal Bowel Sounds, Soft, Non-Tender, No Organomegaly Neuro Exam (Abbreviated): Alert, Oriented, CN II-XII Intact, Normal Cognition, Normal Gait Course - Vital Signs Text/Narrative:: Vistaril 50 mg IM x1 Starr 5/325, 2 po x1 Last Recorded V/S: Last Vital Signs Temp 36.8 C 01/14/20 11:46 Pulse 64 01/14/20 11:46 Resp 16 01/14/20 11:46 BP 126/68 01/14/20 11:46 Pulse Ox 97 01/14/20 11:46 - Orders/Labs/Meds Meds: Medications Discontinued Medications Generic Name Dose Route Start Last Admin Trade Name Freq PRN Reason Stop Dose Admin Hydrocodone Bitart/Acetaminophen 2 tab 01/14/20 13:03 01/14/20 13:17 Starr 325-5 Mg PO 01/14/20 13:04 2 tab NOW STA Administration Hydroxyzine HCl 50 mg 01/14/20 13:03 01/14/20 13:17 Vistaril IM 01/14/20 13:04 50 mg ONETIME ONE Administration Departure - Departure Time of Disposition: 13:30 Disposition: Home, Self-Care 01 Condition: Good Clinical Impression: Migraine, Migraine - Discharge Information Prescriptions: Acetaminophen/HYDROcodone [Starr 325-5 MG] 1 - 2 tab PO Q4H PRN #6 tab PRN Reason: Pain Instructions: Migraine Headache Referrals: Rupert Benoit MD [Primary Care Provider] - Forms: ED Department Discharge Additional Instructions: Please read discharge instructions on Migraine Nroc-1-2 tablets every 4-6 hours as needed for headache zofran odt 4 mg every 4 hours as needed for nausea follow up with your neurologist Sepsis Event Note (ED) - Focused Exam Vital Signs: Vital Signs Temp Pulse Resp BP Pulse Ox 01/14/20 11:46 36.8 C 64 16 126/68 97
== END 2020-01-14 13:25 | disposition home or self-care (01) ==
LOC: FB.ED 11:46
DX: G43.909 Migraine, unspecified, not intractable, without status migrainosus (principal); I10 Essential (primary) hypertension; E11.9 Type 2 diabetes mellitus without complications; E66.9 Obesity, unspecified; F32.9 Major depressive disorder, single episode, unspecified; F41.9 Anxiety disorder, unspecified; Z88.6 Allergy status to analgesic agent; Z88.5 Allergy status to narcotic agent; Z88.8 Allergy status to other drugs, medicaments and biological substances; Z90.49 Acquired absence of other specified parts of digestive tract; Z79.4 Long term (current) use of insulin; Z79.899 Other long term (current) drug therapy
CPT/HCPCS: 96372; 99283; A9270; J3410

== ENCOUNTER 2020-01-23 12:35 | Emergency (ER) | payer MEDICAID ==
[2020-01-23] MEDS ORDERED: Acetaminophen/HYDROcodone 325-5 MG Tab PO ONE (12:57)
[2020-01-23] MEDS ORDERED: hydrOXYzine HCl 50 MG/ML SDV IM ONE (12:57)
[2020-01-23 13:02] VITALS: BP 124/96; PULSE 70
--- NOTE | 2020-01-23 13:06 | EDM.PDOC ---
ED HPI GENERAL MEDICAL PROBLEM - General Stated Complaint: MIGRAINE Time Seen by Provider: 01/23/20 13:05 Source of Information: Reports: Patient History Limitations: Reports: No Limitations - History of Present Illness INITIAL COMMENTS - FREE TEXT/NARRATIVE: Patient presented to the ED because of headache, N/V since yesterday. She took her topamax, fioricet, compazine without relief. There is no associated fever/chills or neck stiffness. She has a Neurology appointment on Feb 12. Headache Pain Score (Numeric/FACES): 7 - Related Data Allergies Allergy/AdvReac Type Severity Reaction Status Date / Time diclofenac Allergy Wheezing Verified 09/25/19 16:24 fluconazole Allergy Wheezing Verified 09/25/19 16:24 ketorolac [From Toradol] Allergy Respiratory Verified 09/25/19 16:24 Distress ketorolac tromethamine Allergy Hives Verified 09/25/19 16:24 [From Toradol] propoxyphene Allergy Wheezing Verified 09/25/19 16:24 [From Darvocet-N] tramadol Allergy Shortness Verified 09/25/19 16:24 of Breath steroid Allergy Agitation Uncoded 09/25/19 16:24 Home Meds: Home Meds Naproxen Sodium 220 mg PO BID PRN 11/15/18 [History] FLUoxetine HCl [Fluoxetine HCl] 20 mg PO DAILY 09/25/19 [History] Insulin Regular, Human [HumuLIN R] 100 units SQ DAILY 09/25/19 [History] Mirtazapine 45 mg PO DAILY 09/25/19 [History] metFORMIN [Glucophage] 1,000 mg PO DAILY 09/25/19 [History] Acetaminophen/HYDROcodone [[place] 325-5 MG] 1 - 2 tab PO Q4H PRN #6 tab 01/14/20 [Rx] Acetaminophen/HYDROcodone [[place] 325-5 MG] 1 - 2 tab PO Q6H PRN #6 tab 01/23/20 [Rx] Past Medical History HEENT History: Reports: None Cardiovascular History: Reports: Hypertension Gastrointestinal History: Reports: Inflammatory Bowel Disease Other Gastrointestinal History: hx ulcerative colitis, ABD PAIN Genitourinary History: Reports: Renal Calculus, UTI, Recurrent Other Genitourinary History: Kidney stones, 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 Musculoskeletal History: Reports: Back Pain, Chronic Neurological History: Reports: Migraines Psychiatric History: Reports: Addiction, Anxiety, Autism, Depression, Other (See Below) Other Psychiatric History: Pain contract has been broken. Endocrine/Metabolic History: Reports: Diabetes, Type II, Obesity/BMI 30+ Other Endocrine/Metabolic History: Denies taking any meds at this time, diet controlled. Hematologic History: Reports: None Immunologic History: Reports: None Oncologic (Cancer) History: Reports: None Dermatologic History: Reports: Other (See Below) Other Dermatologic History: States she was MRSA positive in November 2017. - Infectious Disease History Infectious Disease History: Reports: Chicken Pox, MRSA - Past Surgical History Head Surgeries/Procedures: Reports: None HEENT Surgical History: Reports: Adenoidectomy, Naso-Sinus Surgery, Oral Surgery, Tonsillectomy Other Respiratory Surgeries/Procedures: unable to get information as of this time GI Surgical History: Reports: Appendectomy, Cholecystectomy, Colonoscopy Female Surgical History: Reports: Section, D&C, Hysterectomy, Other (See Below) Other Female Surgeries/Procedures: Vaginal hysterectomy. Social & Family History - Family History Family Medical History: Noncontributory - Caffeine Use Caffeine Use: Reports: None - Living Situation & Occupation Occupation: Employed (Works at [employer]) ED ROS GENERAL - Review of Systems Review Of Systems: See Below Constitutional: Reports: No Symptoms HEENT: Reports: No Symptoms Respiratory: Reports: No Symptoms Cardiovascular: Reports: No Symptoms Endocrine: Reports: No Symptoms GI/Abdominal: Reports: Nausea, Vomiting : Reports: No Symptoms Musculoskeletal: Reports: No Symptoms Skin: Reports: No Symptoms Neurological: Reports: No Symptoms, Confusion Psychiatric: Reports: No Symptoms Hematologic/Lymphatic: Reports: No Symptoms Immunologic: Reports: No Symptoms ED EXAM, NEURO - Physical Exam Exam: See Below Exam Limited By: No Limitations General Appearance: Alert, No Apparent Distress Eye Exam: Bilateral Eye: PERRL Ears: Normal External Exam, Normal Canal Nose: Normal Inspection, Normal Mucosa Throat/Mouth: Normal Inspection, Normal Lips, Normal Teeth Head Exam: Atraumatic, Normocephalic Neck: Normal Inspection, Supple, Non-Tender, Full Range of Motion Respiratory/Chest: No Respiratory Distress, Lungs Clear, Normal Breath Sounds Cardiovascular: Normal Peripheral Pulses, Regular Rate, Rhythm, No Edema, No Gallop GI/Abdominal: Normal Bowel Sounds, Soft, Non-Tender, No Organomegaly Neurological: Alert, Normal Mood/Affect, Normal Dorsiflexion, CN II-XII Intact, Oriented x 3 Back Exam: Normal Inspection, Full Range of Motion Extremities: Normal Inspection, Normal Range of Motion Psychiatric: Normal Affect Skin Exam: Warm Course - Vital Signs Text/Narrative:: Vistaril 50 mg IM Bennett 5/325, 2 po x1 Last Recorded V/S: Last Vital Signs Temp 36.7 C 01/23/20 13:01 Pulse 70 01/23/20 13:01 Resp 16 01/23/20 13:01 BP 124/96 H 01/23/20 13:01 Pulse Ox 97 01/23/20 13:01 - Orders/Labs/Meds Meds: Medications Discontinued Medications Generic Name Dose Route Start Last Admin Trade Name Freq PRN Reason Stop Dose Admin Hydrocodone Bitart/Acetaminophen 2 tab 01/23/20 12:57 01/23/20 13:03 [place] 325-5 Mg PO 01/23/20 12:58 2 tab ONETIME ONE Administration Hydroxyzine HCl 50 mg 01/23/20 12:57 01/23/20 13:03 Vistaril IM 01/23/20 12:58 50 mg ONETIME ONE Administration Departure - Departure Time of Disposition: 13:10 Disposition: Home, Self-Care 01 Condition: Good Clinical Impression: Migraine - Discharge Information Prescriptions: Acetaminophen/HYDROcodone [Bennett 325-5 MG] 1 - 2 tab PO Q6H PRN #6 tab PRN Reason: Pain Instructions: Acetaminophen; Hydrocodone tablets or capsules, Hydroxyzine injection Referrals: PCP,None [Primary Care Provider] - Forms: ED Department Discharge Additional Instructions: Please read discharge instructions on migraine Continue your topamax,imitrex and compazine as prescribed Follow up with your neurologist as scheduled Sepsis Event Note (ED) - Evaluation Sepsis Screening Result: No Definite Risk - Focused Exam Vital Signs: Vital Signs Temp Pulse Resp BP Pulse Ox 01/23/20 13:01 36.7 C 70 16 124/96 H 97
== END 2020-01-23 13:14 | disposition home or self-care (01) ==
LOC: FB.ED 12:35
DX: G43.909 Migraine, unspecified, not intractable, without status migrainosus (principal); I10 Essential (primary) hypertension; F84.0 Autistic disorder; F41.9 Anxiety disorder, unspecified; F32.9 Major depressive disorder, single episode, unspecified; E11.9 Type 2 diabetes mellitus without complications; E66.9 Obesity, unspecified; Z68.33 Body mass index [BMI] 33.0-33.9, adult; Z88.6 Allergy status to analgesic agent; Z88.1 Allergy status to other antibiotic agents; Z88.5 Allergy status to narcotic agent; Z91.09 Other allergy status, other than to drugs and biological substances
CPT/HCPCS: 96372; 99283; A9270; J3410

== ENCOUNTER 2020-01-27 13:07 | Emergency (ER) | payer MEDICAID ==
[2020-01-27] MEDS ORDERED: hydrOXYzine HCl 50 MG/ML SDV IM ONE (13:26)
[2020-01-27] MEDS ORDERED: Meperidine PF 50 MG/ML Syringe IM ONE (13:26)
--- NOTE | 2020-01-27 13:30 | EDM.PDOC ---
ED HPI GENERAL MEDICAL PROBLEM - General Stated Complaint: COLITIS Time Seen by Provider: 01/27/20 13:27 Source of Information: Reports: Patient History Limitations: Reports: No Limitations - History of Present Illness INITIAL COMMENTS - FREE TEXT/NARRATIVE: Complains of flaring up of chronic abdominal pain. Associated with mucousy diarrhea and dry heaves. Endorses insomnia,and feeling jittery. Abd pain is chronic,with no organic causes found in prior work up. Abdominal Pain Score (Numeric/FACES): 7 - Related Data Allergies Allergy/AdvReac Type Severity Reaction Status Date / Time diclofenac Allergy Wheezing Verified 01/29/20 20:36 fluconazole Allergy Wheezing Verified 01/29/20 20:36 ketorolac [From Toradol] Allergy Respiratory Verified 01/29/20 20:36 Distress ketorolac tromethamine Allergy Hives Verified 01/29/20 20:36 [From Toradol] propoxyphene Allergy Wheezing Verified 01/29/20 20:36 [From Darvocet-N] tramadol Allergy Shortness Verified 01/29/20 20:36 of Breath steroid Allergy Agitation Uncoded 09/25/19 16:24 Home Meds: Home Meds Naproxen Sodium 220 mg PO BID PRN 11/15/18 [History] FLUoxetine HCl [Fluoxetine HCl] 20 mg PO DAILY 09/25/19 [History] Insulin Regular, Human [HumuLIN R] 100 units SQ DAILY 09/25/19 [History] Mirtazapine 45 mg PO DAILY 09/25/19 [History] metFORMIN [Glucophage] 1,000 mg PO DAILY 09/25/19 [History] Acetaminophen/HYDROcodone [[place] 325-5 MG] 1 - 2 tab PO Q4H PRN #6 tab 01/14/20 [Rx] Acetaminophen/HYDROcodone [[place] 325-5 MG] 1 - 2 tab PO Q6H PRN #6 tab 01/23/20 [Rx] predniSONE [Prednisone] 40 mg PO DAILY #30 tablet 01/29/20 [Rx] Past Medical History HEENT History: Reports: None Cardiovascular History: Reports: Hypertension Gastrointestinal History: Reports: Inflammatory Bowel Disease Other Gastrointestinal History: hx ulcerative colitis, ABD PAIN Genitourinary History: Reports: Renal Calculus, UTI, Recurrent Other Genitourinary History: Kidney stones, 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 Musculoskeletal History: Reports: Back Pain, Chronic Neurological History: Reports: Migraines Psychiatric History: Reports: Addiction, Anxiety, Autism, Depression, Other (See Below) Other Psychiatric History: Pain contract has been broken. Endocrine/Metabolic History: Reports: Diabetes, Type II, Obesity/BMI 30+ Other Endocrine/Metabolic History: Denies taking any meds at this time, diet controlled. Hematologic History: Reports: None Immunologic History: Reports: None Oncologic (Cancer) History: Reports: None Dermatologic History: Reports: Other (See Below) Other Dermatologic History: States she was MRSA positive in November 2017. - Infectious Disease History Infectious Disease History: Reports: Chicken Pox, MRSA - Past Surgical History Head Surgeries/Procedures: Reports: None HEENT Surgical History: Reports: Adenoidectomy, Naso-Sinus Surgery, Oral S urgery, Tonsillectomy Other Respiratory Surgeries/Procedures: unable to get information as of this time GI Surgical History: Reports: Appendectomy, Cholecystectomy, Colonoscopy Female Surgical History: Reports: Section, D&C, Hysterectomy, Other (See Below) Other Female Surgeries/Procedures: Vaginal hysterectomy. Social & Family History - Family History Family Medical History: Noncontributory - Caffeine Use Caffeine Use: Reports: None - Living Situation & Occupation Occupation: Employed (Works at [employer]) ED ROS GENERAL - Review of Systems Review Of Systems: Comprehensive ROS is negative, except as noted in HPI. ED EXAM, GI/ABD - Physical Exam Exam: See Below Exam Limited By: No Limitations General Appearance: Alert Head: Atraumatic Respiratory/Chest: No Respiratory Distress Psychiatric: Depressed Mood, Tearful Skin Exam: Warm Course - Vital Signs Last Recorded V/S: Last Vital Signs Temp 98.5 F 01/27/20 13:22 Pulse 89 01/27/20 13:22 Resp 18 01/27/20 13:22 BP 169/88 H 01/27/20 13:22 Pulse Ox 100 01/27/20 13:22 - Orders/Labs/Meds Meds: Medications Discontinued Medications Generic Name Dose Route Start Last Admin Trade Name Freq PRN Reason Stop Dose Admin Hydroxyzine HCl 50 mg 01/27/20 13:26 01/27/20 13:37 Vistaril IM 01/27/20 13:27 50 mg ONETIME ONE Administration Meperidine HCl 50 mg 01/27/20 13:26 01/27/20 13:36 Demerol IM 01/27/20 13:27 50 mg ONETIME ONE Administration Departure - Departure Time of Disposition: 13:29 Disposition: Home, Self-Care 01 Condition: Good Clinical Impression: Abdominal pain Qualifiers: Abdominal location: right lower quadrant Qualified Code(s): R10.31 - Right lower quadrant pain - Discharge Information Instructions: Irritable Bowel Syndrome, Adult Referrals: PCP,None [Primary Care Provider] - 2 Days Forms: ED Department Discharge Care Plan Goals: Follow up with your primary care provider as needed. - Problem List & Annotations (1) Abdominal pain in female SNOMED Code(s): 93094046, [id number] Code(s): R10.9 - UNSPECIFIED ABDOMINAL PAIN Status: Acute - Problem List Review Problem List Initiated/Reviewed/Updated: Yes - Assessment/Plan Plan: Demerol and Vistaril.
[2020-01-27 13:32] VITALS: BP 169/88; PULSE 89
== END 2020-01-27 13:45 | disposition home or self-care (01) ==
LOC: FB.ED 13:07
DX: R10.31 Right lower quadrant pain (principal); I10 Essential (primary) hypertension; E11.9 Type 2 diabetes mellitus without complications; E66.9 Obesity, unspecified; F41.9 Anxiety disorder, unspecified; F32.9 Major depressive disorder, single episode, unspecified; F84.0 Autistic disorder; Z90.49 Acquired absence of other specified parts of digestive tract; Z90.710 Acquired absence of both cervix and uterus; Z88.5 Allergy status to narcotic agent; Z88.6 Allergy status to analgesic agent; Z88.8 Allergy status to other drugs, medicaments and biological substances; Z79.899 Other long term (current) drug therapy
CPT/HCPCS: 96372; 99283; J2175; J3410

== ENCOUNTER 2020-01-29 20:29 | Emergency (ER) | payer MEDICAID ==
[2020-01-29] MEDS: Sodium Chloride 0.9% 1,000 ML IV SCH (21:18)
[2020-01-29] MEDS: Acetaminophen/HYDROcodone 325-5 MG Tab PO STA (21:19)
[2020-01-29] MEDS: methylPREDNISolone Sodium Succinate 125 MG/2 ML SDV IVPUSH ONE (21:20)
[2020-01-29] MEDS: Prochlorperazine 10 MG/2 ML SDV IVPUSH ONE (21:20)
[2020-01-29] MEDS: Sodium Chloride 0.9% 10 ML Syringe FLUSH PRN (21:25)
--- NOTE | 2020-01-29 21:46 | EDM.PDOC ---
ED HPI GENERAL MEDICAL PROBLEM - General Chief Complaint: Gastrointestinal Problem Stated Complaint: COLITIS Time Seen by Provider: 01/29/20 20:45 Source of Information: Reports: Patient History Limitations: Reports: No Limitations - History of Present Illness INITIAL COMMENTS - FREE TEXT/NARRATIVE: Patient presented to the ED because 2 day history of abdominal pain over the LL Q. She also have diarrhea that is mucoid. She was seen by her primary doctor and prescribed levsin which helped with the diarrhea but not the cramping pain. There is associated nausea and vomiting x1. Denies having any fever or chills. No cough and cold symptoms. abdomen Pain Score (Numeric/FACES): 5 - Related Data Allergies Allergy/AdvReac Type Severity Reaction Status Date / Time diclofenac Allergy Wheezing Verified 01/29/20 20:36 fluconazole Allergy Wheezing Verified 01/29/20 20:36 ketorolac [From Toradol] Allergy Respiratory Verified 01/29/20 20:36 Distress ketorolac tromethamine Allergy Hives Verified 01/29/20 20:36 [From Toradol] propoxyphene Allergy Wheezing Verified 01/29/20 20:36 [From Darvocet-N] tramadol Allergy Shortness Verified 01/29/20 20:36 of Breath steroid Allergy Agitation Uncoded 09/25/19 16:24 Home Meds: Home Meds Naproxen Sodium 220 mg PO BID PRN 11/15/18 [History] FLUoxetine HCl [Fluoxetine HCl] 20 mg PO DAILY 09/25/19 [History] Insulin Regular, Human [HumuLIN R] 100 units SQ DAILY 09/25/19 [History] Mirtazapine 45 mg PO DAILY 09/25/19 [History] metFORMIN [Glucophage] 1,000 mg PO DAILY 09/25/19 [History] Acetaminophen/HYDROcodone [Weir 325-5 MG] 1 - 2 tab PO Q4H PRN #6 tab 01/14/20 [Rx] Acetaminophen/HYDROcodone [Weir 325-5 MG] 1 - 2 tab PO Q6H PRN #6 tab 01/23/20 [Rx] predniSONE [Prednisone] 40 mg PO DAILY #30 tablet 01/29/20 [Rx] Past Medical History HEENT History: Reports: None Cardiovascular History: Reports: Hypertension Gastrointestinal History: Reports: Inflammatory Bowel Disease Other Gastrointestinal History: hx ulcerative colitis, ABD PAIN Genitourinary History: Reports: Renal Calculus, UTI, Recurrent Other Genitourinary History: Kidney stones, 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 Musculoskeletal History: Reports: Back Pain, Chronic Neurological History: Reports: Migraines Psychiatric History: Reports: Addiction, Anxiety, Autism, Depression, Other (See Below) Other Psychiatric History: Pain contract has been broken. Endocrine/Metabolic History: Reports: Diabetes, Type II, Obesity/BMI 30+ Other Endocrine/Metabolic History: Denies taking any meds at this time, diet controlled. Hematologic History: Reports: None Immunologic History: Reports: None Oncologic (Cancer) History: Reports: None Dermatologic History: Reports: Other (See Below) Other Dermatologic History: States she was MRSA positive in November 2017. - Infectious Disease History Infectious Disease History: Reports: Chicken Pox, MRSA - Past Surgical History Head Surgeries/Procedures: Reports: None HEENT Surgical History: Reports: Adenoidectomy, Naso-Sinus Surgery, Oral Surgery, Tonsillectomy Other Respiratory Surgeries/Procedures: unable to get information as of this time GI Surgical History: Reports: Appendectomy, Cholecystectomy, Colonoscopy Female Surgical History: Reports: Section, D&C, Hysterectomy, Other (See Below) Other Female Surgeries/Procedures: Vaginal hysterectomy. Social & Family History - Family History Family Medical History: Noncontributory - Caffeine Use Caffeine Use: Reports: Soda - Living Situation & Occupation Occupation: Employed (Works at [employer]) ED ROS GENERAL - Review of Systems Review Of Systems: See Below Constitutional: Reports: No Symptoms HEENT: Reports: No Symptoms Respiratory: Reports: No Symptoms Cardiovascular: Reports: No Symptoms Endocrine: Reports: No Symptoms GI/Abdominal: Reports: Abdominal Pain, Nausea, Vomiting : Reports: No Symptoms Musculoskeletal: Reports: No Symptoms Skin: Reports: No Symptoms ED EXAM, GI/ABD - Physical Exam Exam: See Below Exam Limited By: No Limitations General Appearance: Alert, No Apparent Distress Ears: Normal External Exam, Normal Canal Nose: Normal Inspection, Normal Mucosa Throat/Mouth: Normal Inspection, Normal Lips, Normal Teeth Head: Atraumatic, Normocephalic Neck: Normal Inspection, Supple, Non-Tender, Full Range of Motion Respiratory/Chest: No Respiratory Distress, Lungs Clear, Normal Breath Sounds Cardiovascular: Normal Peripheral Pulses, Regular Rate, Rhythm, No Edema GI/Abdominal Exam: Normal Bowel Sounds, Soft, Other (tenderness over th eLLQ) Back Exam: Normal Inspection, Full Range of Motion Extremities: Normal Inspection, Normal Range of Motion Neurological: Alert, Oriented, CN II-XII Intact Course - Vital Signs Text/Narrative:: Labs reviewed and discussed with patient NS 1 L bolus Compazine 10 mg IV Weir, 5/325 2 PO x1 Klor con 40 meq PO x1 Solumedrol 125 mg IV x1 Last Recorded V/S: Last Vital Signs Temp 36.9 C 01/29/20 20:45 Pulse 64 01/29/20 22:30 Resp 17 01/29/20 22:30 BP 117/62 01/29/20 22:30 Pulse Ox 99 01/29/20 22:30 - Orders/Labs/Meds Orders: Active Orders 24 hr Category Date Time Status Saline Lock Insert [OM.PC] Routine Oth 01/29/20 20:55 Ordered Labs: Laboratory Tests 01/29/20 01/29/20 01/29/20 Range/Units 21:10 21:10 21:10 WBC 10.8 (4.5-12.0) X10-3/uL RBC 5.23 H (3.23-5.20) x10(6)uL Hgb 13.7 (11.5-15.5) g/dL Hct 43.0 (30.0-51.3) % MCV 82.3 (80-96) fL MCH 26.2 L (27.7-33.6) pg MCHC 31.8 L (32.2-35.4) g/dL RDW 14.5 (11.5-15.5) % Plt Count 230 (125-369) X10(3)uL MPV 8.8 (7.4-10.4) fL Neut % (Auto) 52.3 (46-82) % Lymph % (Auto) 42.4 H (13-37) % [place] % (Auto) 3.9 L (4-12) % Eos % (Auto) 1 (1.0-5.0) % Baso % (Auto) 1 (0-2) % Neut # (Auto) 5.6 (1.6-8.3) # Lymph # (Auto) 4.6 (0.6-5.0) # [place] # (Auto) 0.4 (0.0-1.3) # Eos # (Auto) 0.1 (0.0-0.8) # Baso # (Auto) 0.1 (0.0-0.2) # Sodium 138 (135-145) mmol/L Potassium 3.4 L (3.5-5.3) mmol/L Chloride 100 D (100-110) mmol/L Carbon Dioxide 23 (21-32) mmol/L BUN 13 (7-18) mg/dL Creatinine 0.8 (0.55-1.02) mg/dL Est Cr Clr Drug Dosing TNP Estimated GFR (MDRD) > 60 (>60) BUN/Creatinine Ratio 16.3 (9-20) Glucose 92 (80-116) mg/dL Calcium 9.3 (8.6-10.2) mg/dL Total Bilirubin 0.4 (0.1-1.3) mg/dL AST 57 H (5-25) IU/L ALT 102 H D (12-36) U/L Alkaline Phosphatase 66 (56-112) IU/L Total Protein 8.7 H (6.0-8.0) g/dL Albumin 4.4 (3.5-5.2) g/dL Globulin 4.3 g/dL Albumin/Globulin Ratio 1.0 Amylase 44 (25-115) U/L Lipase 137 (73-393) U/L Meds: Medications Discontinued Medications Generic Name Dose Route Start Last Admin Trade Name Freq PRN Reason Stop Dose Admin Hydrocodone Bitart/Acetaminophen 2 tab 01/29/20 21:01 01/29/20 21:19 Weir 325-5 Mg PO 01/29/20 21:02 2 tab NOW STA Administration Sodium Chloride 1,000 mls @ 999 mls/hr 01/29/20 21:00 01/29/20 21:18 Normal Saline IV 999 mls/hr ASDIRECTED LYNETTE Administration Methylprednisolone Sodium Succinate 125 mg 01/29/20 20:58 01/29/20 21:20 Solu-Medrol IVPUSH 01/29/20 20:59 125 mg ONETIME ONE Administration Potassium Chloride 40 meq 01/29/20 21:41 01/29/20 21:53 Klor-Con M20 PO 01/29/20 21:42 40 meq ONETIME ONE Administration Prochlorperazine Edisylate 10 mg 01/29/20 21:00 01/29/20 21:20 Compazine IVPUSH 01/29/20 21:01 10 mg ONETIME ONE Administration Sodium Chloride 10 ml 01/29/20 20:55 01/29/20 21:25 Saline Flush FLUSH 10 ml ASDIRECTED PRN Administration Keep Vein Open Departure - Departure Time of Disposition: 21:45 Disposition: Home, Self-Care 01 Condition: Good Clinical Impression: Ulcerative colitis - Discharge Information Prescriptions: predniSONE [Prednisone] 40 mg PO DAILY #30 tablet Instructions: Hypokalemia, Ulcerative Colitis, Adult Referrals: Francisco Mendes MD [Primary Care Provider] - Forms: ED Department Discharge Additional Instructions: Please read discharge instructions on ulcerative colitis and hypokalemia(low pot assium) Prednisone 20 mg, take 2 tablets daily for 15 days Zofran ODT 4 mg every 4 hours as needed for nausea Follow up with your handy man if the flare up of your ulcerative colitis is becoming frequent Sepsis Event Note (ED) - Evaluation Sepsis Screening Result: No Definite Risk - Focused Exam Vital Signs: Vital Signs Temp Pulse Resp BP Pulse Ox 01/29/20 22:30 64 17 117/62 99 01/29/20 20:45 36.9 C 82 15 121/84 100 - My Orders Last 24 Hours: My Active Orders 01/29/20 20:55 Saline Lock Insert [OM.PC] Routine - Assessment/Plan Last 24 Hours: My Active Orders 01/29/20 20:55 Saline Lock Insert [OM.PC] Routine
[2020-01-29] MEDS: Potassium Chloride 20 MEQ Tab.ER PO ONE (21:53)
[2020-01-29 22:53] VITALS: BP 117/62; PULSE 64
== END 2020-01-29 22:35 | disposition home or self-care (01) ==
LOC: FB.ED 20:29
DX: K51.90 Ulcerative colitis, unspecified, without complications (principal); E11.9 Type 2 diabetes mellitus without complications; E66.9 Obesity, unspecified; Z68.32 Body mass index [BMI] 32.0-32.9, adult; F32.9 Major depressive disorder, single episode, unspecified; F84.0 Autistic disorder; Z79.84 Long term (current) use of oral hypoglycemic drugs; Z79.899 Other long term (current) drug therapy; Z88.6 Allergy status to analgesic agent; Z88.1 Allergy status to other antibiotic agents; Z88.5 Allergy status to narcotic agent; Z88.8 Allergy status to other drugs, medicaments and biological substances
CPT/HCPCS: 36415; 80053; 82150; 83690; 85025; 96361; 96374; 96375; 99284; 99284-25; A9270-GY; J0780; J2930; J7030

== ENCOUNTER 2020-07-31 05:22 | Emergency (ER) | payer MEDICAID ==
--- NOTE | 2020-07-31 05:59 | EDM.PDOC ---
ED HPI GENERAL MEDICAL PROBLEM - General Chief Complaint: Headache Stated Complaint: migraine Time Seen by Provider: 07/31/20 05:30 Source of Information: Reports: Patient History Limitations: Reports: No Limitations - History of Present Illness INITIAL COMMENTS - FREE TEXT/NARRATIVE: pt states she has a frontal headache that is has been present for at least 4 day s( getting ) severe enough she vomited frontal , bilateral , does not affect her vision has been chronic , was seen by Neurologist and given Neurontin ( dissolves under tongue ) has used for 4 days and states it is not helping so she stopped it states she has been given toradol recently and is tolerating that well ( chart states she get hives ) pt also states she has been falling her legs are weak not able to carry her She fe;; and knocked down her furniture, did no pass out , states he knees feel like someone kneed her from behind as she keeps falling Not sure whether she has had vit d, B12 levels checked she has been on Neurontin Recent head CT was negative : headache is still the same Onset: Gradual Onset Date: 07/28/20 Duration: Day(s): (4) Location: Reports: Head - Related Data Allergies Allergy/AdvReac Type Severity Reaction Status Date / Time diclofenac Allergy Wheezing Verified 01/29/20 20:36 fluconazole Allergy Wheezing Verified 01/29/20 20:36 ketorolac [From Toradol] Allergy Respiratory Verified 01/29/20 20:36 Distress ketorolac tromethamine Allergy Hives Verified 01/29/20 20:36 [From Toradol] propoxyphene Allergy Wheezing Verified 01/29/20 20:36 [From Darvocet-N] tramadol Allergy Shortness Verified 01/29/20 20:36 of Breath steroid Allergy Agitation Uncoded 09/25/19 16:24 Home Meds: Home Meds FLUoxetine HCl [Fluoxetine HCl] 20 mg PO DAILY 09/25/19 [History] Mirtazapine 45 mg PO DAILY 09/25/19 [History] Buprenorphine HCl/Naloxone HCl [Buprenorphin-Naloxon 8-2 mg Sl] 1 tab BUCCAL BID 07/31/20 [History] Past Medical History HEENT History: Reports: None Cardiovascular History: Reports: Hypertension Respiratory History: Reports: Other (See Below) Other Respiratory History: on and off smoker. 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 Musculoskeletal History: Reports: Back Pain, Chronic Neurological History: Reports: Migraines Psychiatric History: Reports: Addiction, Anxiety, Autism, Depression, Other (See Below) Other Psychiatric History: Pain contract has been broken. Endocrine/Metabolic History: Reports: Diabetes, Type II, Obesity/BMI 30+ Other Endocrine/Metabolic History: Denies taking any meds at this time, diet controlled. Hematologic History: Reports: None Immunologic History: Reports: None Oncologic (Cancer) History: Reports: None Dermatologic History: Reports: Other (See Below) Other Dermatologic History: States she was MRSA positive in November 2017. - Infectious Disease History Infectious Disease History: Reports: Chicken Pox, MRSA - Past Surgical History Head Surgeries/Procedures: Reports: None HEENT Surgical History: Reports: Adenoidectomy, Naso-Sinus Surgery, Oral Surgery, Tonsillectomy Other Respiratory Surgeries/Procedures: unable to get information as of this time GI Surgical History: Reports: Appendectomy, Cholecystectomy, Colonoscopy Female Surgical History: Reports: Section, D&C, Hysterectomy, Other (See Below) Other Female Surgeries/Procedures: Vaginal hysterectomy. Social & Family History - Family History Family Medical History: No Pertinent Family History - Caffeine Use Caffeine Use: Reports: Soda - Living Situation & Occupation Occupation: Employed (Works at [employer]) ED ROS GENERAL - Review of Systems Review Of Systems: See Below Cardiovascular: Denies: Chest Pain Endocrine: Denies: Fatigue Musculoskeletal: Reports: Muscle Pain (in the temporal region) Neurological: Reports: Headache, Difficulty Walking, Gait Disturbance, Other (states she falls) Psychiatric: Reports: Confusion Hematologic/Lymphatic: Reports: No Symptoms Immunologic: Reports: No Symptoms - Physical Exam Exam: See Below Exam Limited By: No Limitations General Appearance: Alert, WD/WN, No Apparent Distress Eye Exam: Bilateral Eye: EOMI Ears: Normal External Exam Nose: Normal Inspection Throat/Mouth: Normal Oropharynx Head Exam: Atraumatic, Normocephalic Neck: Supple, Non-Tender Respiratory/Chest: Lungs Clear, Normal Breath Sounds Cardiovascular: Regular Rate, Rhythm GI/Abdominal: Soft, Non-Tender Neuro Exam (Abbreviated): Alert, Oriented, CN II-XII Intact, Inattentive Back Exam: Normal Inspection, Full Range of Motion Extremities: Normal Inspection, Normal Range of Motion. No: No Pedal Edema, Joint Swelling, Stanley's Sign, Leg Pain, Limited Range of Motion, Redness Psychiatric: Normal Affect, Flat Affect Skin Exam: Warm, Dry, Intact Course - Vital Signs Last Recorded V/S: Last Vital Signs Temp 36.6 C 07/31/20 05:25 Pulse 83 07/31/20 05:25 Resp 22 H 07/31/20 05:25 BP 148/104 H 07/31/20 05:25 Pulse Ox 99 07/31/20 05:25 - Orders/Labs/Meds Orders: Active Orders 24 hr Category Date Time Status VITAMIN B1 (THIAMINE), BLOOD Routine Lab 07/31/20 06:05 Received VITAMIN D, 25-HYDROXY Routine Lab 07/31/20 06:05 Received Labs: Laboratory Tests 07/31/20 07/31/20 07/31/20 Range/Units 06:05 06:05 06:05 WBC 6.1 (3.0-10.3) x10-3/uL RBC 4.20 (3.60-5.20) x10(6)uL Hgb 12.5 (11.4-15.5) g/dL Hct 37.3 (34.2-48.2) % MCV 88.8 (76.7-100.5) fL MCH 29.8 (23.9-33.9) pg MCHC 33.5 (31.9-34.8) g/dL RDW 14.5 (12.3-16.5) % Plt Count 171 (151-488) x10(3)uL MPV 8.4 (7.1-12.4) fL Neut % (Auto) 53.8 (30.8-76.2) % Lymph % (Auto) 40.3 (18.4-52.1) % [place] % (Auto) 4.1 L (4.4-15.7) % Eos % (Auto) 1.2 (0.6-8.1) % Baso % (Auto) 0.6 (0.2-1.5) % Neut # (Auto) 3.3 (1.5-6.3) x10-3/uL Lymph # (Auto) 2.5 (1.0-4.4) x10-3/uL [place] # (Auto) 0.3 (0.3-1.0) x10-3/uL Eos # (Auto) 0.1 (0.0-0.8) x10-3/uL Baso # (Auto) 0.0 (0.0-0.1) x10-3/uL Sodium 139 (135-145) mmol/L Potassium 4.5 D (3.5-5.3) mmol/L Chloride 103 (100-110) mmol/L Carbon Dioxide 26 (21-32) mmol/L BUN 13 (7-18) mg/dL Creatinine 0.8 (0.55-1.02) mg/dL Est Cr Clr Drug Dosing TNP Estimated GFR (MDRD) > 60 (>60) BUN/Creatinine Ratio 16.3 (9-20) Glucose 114 (80-116) mg/dL Calcium 8.8 (8.6-10.2) mg/dL Magnesium 1.9 (1.8-2.5) mg/dL Total Bilirubin 0.3 (0.1-1.3) mg/dL AST 32 H D (5-25) IU/L ALT 65 H D (12-36) U/L Alkaline Phosphatase 62 (56-112) IU/L Total Protein 7.9 (6.0-8.0) g/dL Albumin 4.0 (3.5-5.2) g/dL Globulin 3.9 g/dL Albumin/Globulin Ratio 1.0 Vitamin B12 (193-986) pg/mL TSH, Ultra Sensitive 2.23 (0.36-3.74) IU/mL 07/31/20 Range/Units 06:05 WBC (3.0-10.3) x10-3/uL RBC (3.60-5.20) x10(6)uL Hgb (11.4-15.5) g/dL Hct (34.2-48.2) % MCV (76.7-100.5) fL MCH (23.9-33.9) pg MCHC (31.9-34.8) g/dL RDW (12.3-16.5) % Plt Count (151-488) x10(3)uL MPV (7.1-12.4) fL Neut % (Auto) (30.8-76.2) % Lymph % (Auto) (18.4-52.1) % [place] % (Auto) (4.4-15.7) % Eos % (Auto) (0.6-8.1) % Baso % (Auto) (0.2-1.5) % Neut # (Auto) (1.5-6.3) x10-3/uL Lymph # (Auto) (1.0-4.4) x10-3/uL [place] # (Auto) (0.3-1.0) x10-3/uL Eos # (Auto) (0.0-0.8) x10-3/uL Baso # (Auto) (0.0-0.1) x10-3/uL Sodium (135-145) mmol/L Potassium (3.5-5.3) mmol/L Chloride (100-110) mmol/L Carbon Dioxide (21-32) mmol/L BUN (7-18) mg/dL Creatinine (0.55-1.02) mg/dL Est Cr Clr Drug Dosing Estimated GFR (MDRD) (>60) BUN/Creatinine Ratio (9-20) Glucose (80-116) mg/dL Calcium (8.6-10.2) mg/dL Magnesium (1.8-2.5) mg/dL Total Bilirubin (0.1-1.3) mg/dL AST (5-25) IU/L ALT (12-36) U/L Alkaline Phosphatase (56-112) IU/L Total Protein (6.0-8.0) g/dL Albumin (3.5-5.2) g/dL Globulin g/dL Albumin/Globulin Ratio Vitamin B12 440 (193-986) pg/mL TSH, Ultra Sensitive (0.36-3.74) IU/mL Meds: Medications Discontinued Medications Generic Name Dose Route Start Last Admin Trade Name Freq PRN Reason Stop Dose Admin Hydroxyzine HCl 50 mg 07/31/20 06:02 07/31/20 06:14 Hydroxyzine Hcl 50 Mg/Ml Sdv IM 07/31/20 06:03 50 mg ONETIME ONE Administration Ondansetron HCl 8 mg 07/31/20 06:03 07/31/20 06:14 Ondansetron 8 Mg Tab.Dis PO 07/31/20 06:04 8 mg ONETIME ONE Administration - Re-Assessments/Exams Free Text/Narrative Re-Assessment/Exam: 07/31/20 06:19 requested for toradol but since it has an allergy in the chart I gave her vistaril instead with natasha encouraged pt to discuss same with her doctor Departure - Departure Time of Disposition: 07:08 Disposition: Home, Self-Care 01 Condition: Fair Clinical Impression: Cluster headache syndrome, Tension-type headache, Migraine - Discharge Information *PRESCRIPTION DRUG MONITORING PROGRAM REVIEWED*: Not Applicable *COPY OF PRESCRIPTION DRUG MONITORING REPORT IN PATIENT PAULA: Not Applicable Referrals: Francisco Mendes MD [Primary Care Provider] - Forms: ED Department Discharge, ED Department Discharge Additional Instructions: 1) Continue with current medications as described by your doctor and Neurologist see your doctor you may need referral to pain clinic Sepsis Event Note (ED) - Focused Exam Vital Signs: Vital Signs Temp Pulse Resp BP Pulse Ox 07/31/20 05:25 36.6 C 83 22 H 148/104 H 99 - My Orders Last 24 Hours: My Active Orders 07/31/20 06:05 VITAMIN B1 (THIAMINE), BLOOD Routine VITAMIN D, 25-HYDROXY Routine - Assessment/Plan Last 24 Hours: My Active Orders 07/31/20 06:05 VITAMIN B1 (THIAMINE), BLOOD Routine VITAMIN D, 25-HYDROXY Routine
[2020-07-31] MEDS ORDERED: hydrOXYzine HCl 50 MG/ML SDV IM ONE (06:02)
[2020-07-31] MEDS ORDERED: Ondansetron 8 MG Tab.DIS PO ONE (06:03)
[2020-07-31 08:00] VITALS: BP 130/94; PULSE 80
== END 2020-07-31 07:10 | disposition home or self-care (01) ==
LOC: FB.ED 05:22
DX: G44.209 Tension-type headache, unspecified, not intractable (principal); G44.009 Cluster headache syndrome, unspecified, not intractable; I10 Essential (primary) hypertension; E11.9 Type 2 diabetes mellitus without complications; F17.200 Nicotine dependence, unspecified, uncomplicated; E66.9 Obesity, unspecified; Z88.8 Allergy status to other drugs, medicaments and biological substances; Z88.5 Allergy status to narcotic agent; Z79.899 Other long term (current) drug therapy
CPT/HCPCS: 36415; 80053; 82306; 82607; 83735; 84425; 84443; 85025; 96372; 99283; A9270-GY; J3410

== ENCOUNTER 2021-01-08 12:41 | Emergency (ER) | payer MEDICAID ==
[2021-01-08] MEDS ORDERED: Ondansetron 4 MG Tab.DIS PO ONE (12:42)
--- NOTE | 2021-01-08 13:34 | EDM.PDOC ---
ED HPI GENERAL MEDICAL PROBLEM - General Chief Complaint: Abdominal Pain Stated Complaint: INFECTION IN COLON Time Seen by Provider: 01/08/21 13:00 Source of Information: Reports: Patient History Limitations: Reports: No Limitations - History of Present Illness INITIAL COMMENTS - FREE TEXT/NARRATIVE: pt c/o LLQ abd pain x 8 days, with recurrent nausea, occasinal emesis and watery diarrhea , no fever chills or urinary sx or any other associated sx or concerns, was seen by Dr Murdock 2 days ago , had abd CT and was told she has collitis , was started on cipro and flagyl , she is here concerned as the steady pain continues and worried if the infection is worsening. pt was not able to rake her vicodin due to worsening nausea. pt report Hx of appendectomy, cholecystectomy, hysterectomy and 2 c-sections. L flank & LL abdomen Pain Score (Numeric/FACES): 8 - Related Data Allergies Allergy/AdvReac Type Severity Reaction Status Date / Time diclofenac Allergy Wheezing Verified 01/08/21 12:47 fluconazole Allergy Wheezing Verified 01/08/21 12:47 ketorolac [From Toradol] Allergy Respiratory Verified 01/08/21 12:47 Distress ketorolac tromethamine Allergy Hives Verified 01/08/21 12:47 [From Toradol] propoxyphene Allergy Wheezing Verified 01/08/21 12:47 [From Darvocet-N] tramadol Allergy Shortness Verified 01/08/21 12:47 of Breath Home Meds: Home Meds FLUoxetine HCl [Fluoxetine HCl] 20 mg PO DAILY 09/25/19 [History] Mirtazapine 45 mg PO BEDTIME 09/25/19 [History] Cholecalciferol (Vitamin D3) [Vitamin D3] 2,000 unit PO DAILY #90 capsule 08/03/20 [Rx] Butalb/Acetaminophen/Caffeine [Wfcdfv-Gibhybrg-Whad 50-325-40] 1 each PO Q4H PRN 01/08/21 [History] Ciprofloxacin HCl [Cipro] 500 mg PO BID 01/08/21 [History] Hydrocodone/Acetaminophen [Lorcet 5-325 mg Tablet] 1 - 2 tab Q6H PRN 01/08/21 [History] metroNIDAZOLE [Flagyl] 500 mg PO Q12H 01/08/21 [History] tiZANidine [Zanaflex] 4 mg PO TID PRN 01/08/21 [History] Past Medical History HEENT History: Reports: None Cardiovascular History: Reports: Hypertension Respiratory History: Reports: Other (See Below) Other Respiratory History: on and off smoker. 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 Musculoskeletal History: Reports: Back Pain, Chronic Neurological History: Reports: Migraines Psychiatric History: Reports: Addiction, Anxiety, Autism, Depression, Other (See Below) Other Psychiatric History: Pain contract has been broken. Endocrine/Metabolic History: Reports: Diabetes Mellitus, Type 3c, Obesity/BMI 30+ Other Endocrine/Metabolic History: Denies taking any meds at this time, diet controlled. Hematologic History: Reports: None Immunologic History: Reports: None Oncologic (Cancer) History: Reports: None Dermatologic History: Reports: Other (See Below) Other Dermatologic History: States she was MRSA positive in November 2017. - Infectious Disease History Infectious Disease History: Reports: Chicken Pox, MRSA - Past Surgical History Head Surgeries/Procedures: Reports: None HEENT Surgical History: Reports: Adenoidectomy, Naso-Sinus Surgery, Oral Surgery, Tonsillectomy Cardiovascular Surgical History: Reports: None Other Respiratory Surgeries/Procedures: unable to get information as of this time GI Surgical History: Reports: Appendectomy, Cholecystectomy, Colonoscopy, Hernia Repair/Other Female Surgical History: Reports: Section, D&C, Hysterectomy Other Female Surgeries/Procedures: hysterectomy, CS x 1 Endocrine Surgical History: Reports: None Oncologic Surgical History: Reports: None Social & Family History - Family History Family Medical History: No Pertinent Family History - Tobacco Use Tobacco Use Status *Q: Former Tobacco User Years of Tobacco use: 10 Used Tobacco, but Quit: No - Caffeine Use Caffeine Use: Reports: Coffee, Energy Drinks, Soda, Tea - Recreational Drug Use Recreational Drug Use: No - Living Situation & Occupation Occupation: Employed (Works at [employer] [facility] [facility] GENER[facility] - Review of Systems Review Of Systems: See Below Constitutional: Reports: No Symptoms HEENT: Reports: No Symptoms Respiratory: Reports: No Symptoms Cardiovascular: Reports: No Symptoms GI/Abdominal: Reports: Abdominal Pain, Anorexia, Diarrhea, Decreased Appetite, Nausea, Vomiting. Denies: Bloody Stool, Constipation, Hematemesis, Hematochezia, Melena, Mucous in Stool Musculoskeletal: Reports: No Symptoms Skin: Reports: No Symptoms Neurological: Reports: No Symptoms ED EXAM, GENERAL - Physical Exam Exam: See Below General Appearance: Alert, Anxious, Mild Distress Nose: Normal Inspection Throat/Mouth: Normal Inspection Head: Atraumatic Neck: Normal Inspection, Supple Respiratory/Chest: No Respiratory Distress, Lungs Clear Cardiovascular: Normal Peripheral Pulses GI/Abdominal: Normal Bowel Sounds, Soft, Tender, Other (tender at LL Q, no CVAT). No: Guarding, Rebound Extremities: Normal Inspection Neurological: Alert, Oriented, CN II-XII Intact Course - Vital Signs Text/Narrative:: labs results were explained to pt, ii did repeat her CT but this time without contrast as her urine showed RBCs, this did not show any uropathy ot stones. pt is comfortable after morphine, she has cystitis and recent CT 2 days ago shows colon wall mild thickening . she is stable for out patient mng , pt to [facility] with recently prescribed ABX and follow with her PCP. her CT today also shows mild splenomegaly, but clinically she has no symptoms from this her Pain is at LLQ and there are no signs of acute abd on exam. Last Recorded V/S: Last Vital Signs Temp 36.7 C 01/08/21 12:44 Pulse 70 01/08/21 17:50 Resp 18 01/08/21 17:50 BP 179/103 H 01/08/21 17:50 Pulse Ox 97 01/08/21 17:50 - Orders/Labs/Meds Orders: Active Orders 24 hr Category Date Time Status Abdomen Pelvis wo Cont [CT] Stat Exams 01/08/21 17:15 Taken C DIFFICILE AG/TOXIN W/REFLEX [RM] Stat Lab 01/08/21 13:37 Ordered Sodium Chloride 0.9% [Normal Saline] 1,000 ml Med 01/08/21 13:37 Active IV .BOLUS Medication Orders Sodium Chloride (Normal Saline) 1,000 mls @ 999 drops/hr IV .BOLUS ONE Stop: 01/09/21 04:37 Last Admin: 01/08/21 14:26 Dose: 999 drops/hr Documented by: DHIRAJ Labs: Laboratory Tests 01/08/21 01/08/2101/08/21 Range/Units 13:45 13:45 14:45 WBC 8.6 (3.0-10.3) x10-3/uL RBC 5.00 (3.60-5.20) x10(6)uL Hgb 12.9 (11.4-15.5) g/dL Hct 40.1 (34.2-48.2) % MCV 80.2 (76.7-100.5) fL MCH 25.8 (23.9-33.9) pg MCHC 32.1 (31.9-34.8) g/dL RDW 17.2 H (12.3-16.5) % Plt Count 171 (151-488) x10(3)uL Sodium 145 (135-145) mmol/L Potassium 4.0 (3.5-5.3) mmol/L Chloride 106 (100-110) mmol/L Carbon Dioxide 27 (21-32) mmol/L BUN 17 (7-18) mg/dL Creatinine 0.7 (0.55-1.02) mg/dL Est Cr Clr Drug Dosing 78.27 mL/min Estimated GFR (MDRD) > 60 (>60) BUN/Creatinine Ratio 24.3 H (9-20) Glucose 93 (80-116) mg/dL Calcium 9.5 (8.6-10.2) mg/dL Total Bilirubin 0.1 (0.1-1.3) mg/dL AST 22 D (5-25) IU/L ALT 62 H (12-36) U/L Alkaline Phosphatase 90 (56-112) IU/L Total Protein 7.7 (6.0-8.0) g/dL Albumin 3.8 (3.5-5.2) g/dL Globulin 3.9 g/dL Albumin/Globulin Ratio 1.0 Urine Color Yellow (YELLOW) Urine Appearance Slightly cloudy (CLEAR) Urine pH 7.0 H (5.0-6.5) Ur Specific [place] 1.015 (1.010-1.025) Urine Protein Negative (NEGATIVE) mg/dL Urine Glucose (UA) Normal (NORMAL) mg/dL Urine Ketones Negative (NEGATIVE) mg/dL Urine Occult Blood Large H (NEGATIVE) Urine Nitrite Negative (NEGATIVE) Urine Bilirubin Negative (NEGATIVE) Urine Urobilinogen Normal (NEGATIVE) mg/dL Ur Leukocyte Esterase Negative (NEGATIVE) Urine RBC 30-40 H (0-5) Urine WBC 0-5 (0-5) Ur Squamous Epith Cells Few H (NS,R,O) Urine Bacteria Few H (NS) Meds: Medications Generic Name Dose Route Start Last Admin Trade Name Antonia PRN Reason Stop Dose Admin Sodium Chloride 1,000 mls @ 999 drops/hr 01/08/21 13:37 01/08/21 14:26 Normal Saline IV 01/09/21 04:37 999 drops/hr .BOLUS ONE Administration Discontinued Medications Generic Name Dose Route Start Last Admin Trade Name Antonia PRN Reason Stop Dose Admin Morphine Sulfate 4 mg 01/08/21 13:37 01/08/21 14:32 Morphine 4 Mg/Ml Vial IVPUSH 01/08/21 13:38 4 mg ONETIME ONE Administration Morphine Sulfate 4 mg 01/08/21 16:38 01/08/21 16:42 Morphine 4 Mg/Ml Vial IVPUSH 01/08/21 16:39 4 mg ONETIME ONE Administration Ondansetron HCl 4 mg 01/08/21 13:37 01/08/21 14:30 Ondansetron 4 Mg/2 Ml Sdv IVPUSH 01/08/21 13:38 4 mg ONETIME ONE Administration Departure - Departure Time of Disposition: 18:42 Disposition: Home, Self-Care 01 Clinical Impression: Cystitis - Discharge Information Forms: ED Department Discharge Sepsis Event Note (ED) - Focused Exam Vital Signs: Vital Signs Temp Pulse Resp BP Pulse Ox 01/08/21 17:50 70 18 179/103 H 97 01/08/21 16:30 77 18 155/112 H 97 01/08/21 12:44 36.7 C 84 18 155/112 H 96 - My Orders Last 24 Hours: My Active Orders 01/08/21 13:37 C DIFFICILE AG/TOXIN W/REFLEX [RM] Stat Sodium Chloride 0.9% [Normal Saline] 1,000 ml IV .BOLUS 01/08/21 17:15 Abdomen Pelvis wo Cont [CT] Stat - Assessment/Plan Last 24 Hours: My Active Orders 01/08/21 13:37 C DIFFICILE AG/TOXIN W/REFLEX [RM] Stat Sodium Chloride 0.9% [Normal Saline] 1,000 ml IV .BOLUS 01/08/21 17:15 Abdomen Pelvis wo Cont [CT] Stat
[2021-01-08] MEDS ORDERED: Ondansetron 4 MG/2 ML SDV IVPUSH ONE (13:37)
[2021-01-08] MEDS ORDERED: Sodium Chloride 0.9% 1,000 ML IV ONE (13:37)
[2021-01-08] MEDS ORDERED: Morphine 4 MG/ML VIAL IVPUSH ONE ×2 (13:37→16:38)
[2021-01-08 19:31] VITALS: BP 142/112; PULSE 67
--- NOTE | 2021-01-08 19:42 | CT ---
INDICATION: Abdominal/flank pain, blood in urine. CT ABDOMEN AND PELVIS WITHOUT CONTRAST [id number]: Spiral 2.5 mm axial sections were obtained through the abdomen without contrast with sagittal and coronal reconstructions 01/08/21 and compared with 12/24/18. TOTAL EXAM DLP: 645.58 mGy/cm. Lower lung bustos and pleural spaces visualized appeared normal. The heart is normal in size. No pericardial effusion was seen. The liver appeared normal. No evidence of fatty infiltration is seen at this time. Clips compatible with cholecystectomy are noted. The adrenal glands and kidneys appeared normal without evidence of renal calcinosis or obstructive uropathy, or definite mass lesions, allowing for lack of IV contrast, limiting factor. The spleen is slightly increased in size compared with the previous examination, but is not grossly enlarged, measuring a maximum of approximately 13.3 cm craniocaudad compared with 12.5 cm. If symptoms are referable to the spleen, it may be of significance that it is slightly enlarged compared with the previous study. The spleen was otherwise unremarkable. The pancreas appeared normal with common bile duct and the head of the pancreas appearing normal in caliber. No retroperitoneal mass was identified. The appendix is absent compatible with history of its removal. No evidence of free air or bowel obstruction was identified. No ventral or inguinal hernia was seen. The uterus is absent compatible with history of its removal. The urinary bladder is empty. No organomegaly, mass lesions or free fluid collections were otherwise identified in the abdomen or pelvis. IMPRESSION 1. No definite acute intra-abdominal abnormality. There is noted a mild increase in size of the spleen, which is minimally enlarged. This should be correlated clinically. 2. The patient is post hysterectomy, cholecystectomy and appendectomy. 3. No evidence of obstructive uropathy or definite renal masses. However, study is limited by lack of IV contrast and a contrast-enhanced CT examination may be warranted depending upon clinical correlation. The possibility of cystitis cannot be excluded, with the empty bladder present at this time. Report was called to Dr. Stephens at 1830 hours, 01/08/21. [facility]
== END 2021-01-08 19:15 | disposition home or self-care (01) ==
LOC: FB.ED 12:41
DX: N30.91 Cystitis, unspecified with hematuria (principal); I10 Essential (primary) hypertension; E13.9 Other specified diabetes mellitus without complications; E66.9 Obesity, unspecified; Z87.891 Personal history of nicotine dependence; Z88.6 Allergy status to analgesic agent; Z88.5 Allergy status to narcotic agent; Z68.32 Body mass index [BMI] 32.0-32.9, adult; Z79.899 Other long term (current) drug therapy
CPT/HCPCS: 36415; 74176; 80053; 81001; 85027; 96374; 96375; 96376; 99284; J2270; J2405; J7030; A9270-GY

== ENCOUNTER 2021-01-29 09:11 | Emergency (ER) | payer SELFPAY ==
[2021-01-29 09:30] VITALS: BP 159/111; PULSE 93
[2021-01-29] MEDS ORDERED: Ketorolac 30 MG/ML SDV IM ONE (09:44)
[2021-01-29] MEDS ORDERED: Alum Hydroxide/Mag Hydroxide 15 ML, Lidocaine 2% 15 ML PO ONE ×2 (09:44)
--- NOTE | 2021-01-29 09:44 | EDM.PDOC ---
ED HPI GENERAL MEDICAL PROBLEM - General Chief Complaint: Abdominal Pain Stated Complaint: COLITIS Time Seen by Provider: 01/29/21 09:25 Source of Information: Reports: Patient History Limitations: Reports: No Limitations - History of Present Illness INITIAL COMMENTS - FREE TEXT/NARRATIVE: pt comes in ambulatory to ER with c/O gen weakness, abd cramping and diarrhea, tells me she felt fever this morning, report nausea and emesis yesterday, pt has chronically similar recurrent sx for many years, has Hx of endometriosis / hysterectomy and appendectomy, pt denies known sick contact , recent travel or any other associated sx or concerns. Treatments MONOTYPE SETTER: Reports: Acetaminophen, NSAIDS Left Lower Abdomen Pain Score (Numeric/FACES): 8 - Related Data Allergies Allergy/AdvReac Type Severity Reaction Status Date / Time diclofenac Allergy Wheezing Verified 01/08/21 12:47 fluconazole Allergy Wheezing Verified 01/08/21 12:47 propoxyphene Allergy Wheezing Verified 01/08/21 12:47 [From Darvocet-N] tramadol Allergy Shortness Verified 01/08/21 12:47 of Breath Home Meds: Home Meds Mirtazapine 45 mg PO BEDTIME 09/25/19 [History] tiZANidine [Zanaflex] 4 mg PO TID PRN 01/08/21 [History] Amitriptyline [Elavil] 25 mg PO BEDTIME 01/29/21 [History] atorvaSTATin [Lipitor] 10 mg PO DAILY 01/29/21 [History] glipiZIDE [Glucotrol XL] 5 mg PO DAILY 01/29/21 [History] Past Medical History HEENT History: Reports: None Cardiovascular History: Reports: Hypertension Respiratory History: Reports: Other (See Below) Other Respiratory History: on and off smoker. 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 Musculoskeletal History: Reports: Back Pain, Chronic Neurological History: Reports: Migraines Psychiatric History: Reports: Addiction, Anxiety, Autism, Depression, Other (See Below) Other Psychiatric History: Pain contract has been broken. Endocrine/Metabolic History: Reports: Diabetes Mellitus, Type 3c, Obesity/BMI 30+ Other Endocrine/Metabolic History: Denies taking any meds at this time, diet controlled. Hematologic History: Reports: None Immunologic History: Reports: None Oncologic (Cancer) History: Reports: None Dermatologic History: Reports: Other (See Below) Other Dermatologic History: States she was MRSA positive in November 2017. - Infectious Disease History Infectious Disease History: Reports: Chicken Pox, MRSA - Past Surgical History Head Surgeries/Procedures: Reports: None HEENT Surgical History: Reports: Adenoidectomy, Naso-Sinus Surgery, Oral Surgery, Tonsillectomy Cardiovascular Surgical History: Reports: None Other Respiratory Surgeries/Procedures: unable to get information as of this time GI Surgical History: Reports: Appendectomy, Cholecystectomy, Colonoscopy, Hernia Repair/Other Female Surgical History: Reports: Section, D&C, Hysterectomy Other Female Surgeries/Procedures: hysterectomy, CS x 1 Endocrine Surgical History: Reports: None Oncologic Surgical History: Reports: None Social & Family History - Family History Family Medical History: No Pertinent Family History - Tobacco Use Tobacco Use Status *Q: Current Some Day Tobacco User Years of Tobacco use: 10 Packs/Tins Daily: 1 - Caffeine Use Caffeine Use: Reports: None - Recreational Drug Use Recreational Drug Use: No - Living Situation & Occupation Occupation: Employed (Works at [employer] ROS GENERAL - Review of Systems Review Of Systems: See Below Constitutional: Reports: No Symptoms, Fatigue HEENT: Reports: No Symptoms Respiratory: Reports: No Symptoms Cardiovascular: Reports: No Symptoms GI/Abdominal: Reports: Abdominal Pain, Anorexia, Diarrhea, Nausea, Vomiting. Denies: Black Stool, Bloody Stool, Distension, Hematemesis, Mucous in Stool : Reports: No Symptoms Musculoskeletal: Reports: No Symptoms Skin: Reports: No Symptoms ED EXAM, GENERAL - Physical Exam Exam: See Below Exam Limited By: No Limitations General Appearance: Alert, No Apparent Distress, Other (pt appears comfortable. ) Eye Exam: Bilateral Eye: Normal Inspection Throat/Mouth: Normal Inspection, Normal Oropharynx Respiratory/Chest: No Respiratory Distress, Lungs Clear, Normal Breath Sounds Cardiovascular: Normal Peripheral Pulses, Regular Rate, Rhythm, No Murmur GI/Abdominal: Normal Bowel Sounds, Soft, Tender, Other (tender over the epigastric area. ). No: Distended, Guarding, Rebound Extremities: Normal Inspection Neurological: Alert, Oriented, CN II-XII Intact, No Motor/Sensory Deficits Course - Vital Signs Text/Narrative:: labs and CT results were explained to pt, pt has hematuria , this could be potentially related to cystitis tigering her chronic abd pain that she has for years, pt is comfortable after Toradol and Dilaudid . i did recommend cipro X 7 days, asked pt to follow with her PCP early this coming week, if persistent hematuria then she will need a referral to urology/ this was explained to pt. pt has already a referral to gastroenterology to evaluate her chronic diarrhea and chronic abd pain. Last Recorded V/S: Last Vital Signs Temp 36.4 C 01/29/21 09:12 Pulse 93 01/29/21 09:12 Resp 20 01/29/21 09:12 BP 159/111 H 01/29/21 09:12 Pulse Ox 99 01/29/21 09:12 - Orders/Labs/Meds Orders: Active Orders 24 hr Category Date Time Status Abdomen Pelvis wo Cont [CT] Stat Exams 01/29/21 11:05 Taken Labs: Laboratory Tests 01/29/21 01/29/21 01/29/21 Range/Units 09:50 09:50 09:50 WBC 9.6 (3.0-10.3) x10-3/uL RBC 4.92 (3.60-5.20) x10(6)uL Hgb 12.9 (11.4-15.5) g/dL Hct 39.9 (34.2-48.2) % MCV 81.1 (76.7-100.5) fL MCH 26.2 (23.9-33.9) pg MCHC 32.4 (31.9-34.8) g/dL RDW 18.5 H (12.3-16.5) % Plt Count 172 (151-488) x10(3)uL MPV 7.9 (7.1-12.4) fL Neut % (Auto) 71.8 (30.8-76.2) % Lymph % (Auto) 23.2 (18.4-52.1) % [place] % (Auto) 4.3 L (4.4-15.7) % Eos % (Auto) 0.2 L (0.6-8.1) % Baso % (Auto) 0.5 (0.2-1.5) % Neut # (Auto) 6.9 H (1.5-6.3) x10-3/uL Lymph # (Auto) 2.2 (1.0-4.4) x10-3/uL [place] # (Auto) 0.4 (0.3-1.0) x10-3/uL Eos # (Auto) 0.0 (0.0-0.8) x10-3/uL Baso # (Auto) 0.0 (0.0-0.1) x10-3/uL Sodium 143 (135-145) mmol/L Potassium 3.8 (3.5-5.3) mmol/L Chloride 106 (100-110) mmol/L Carbon Dioxide 24 (21-32) mmol/L BUN 12 (7-18) mg/dL Creatinine 0.8 (0.55-1.02) mg/dL Est Cr Clr Drug Dosing 67.81 mL/min Estimated GFR (MDRD) > 60 (>60) BUN/Creatinine Ratio 15.0 (9-20) Glucose 112 (80-116) mg/dL Calcium 9.0 (8.6-10.2) mg/dL Total Bilirubin 0.2 (0.1-1.3) mg/dL AST 16 D (5-25) IU/L ALT 47 H D (12-36) U/L Alkaline Phosphatase 90 (56-112) IU/L Total Protein 7.7 (6.0-8.0) g/dL Albumin 3.9 (3.5-5.2) g/dL Globulin 3.8 g/dL Albumin/Globulin Ratio 1.0 Amylase 52 (25-115) U/L Lipase (73-393) U/L Urine Color Yellow (YELLOW) Urine Appearance Slightly cloudy (CLEAR) Urine pH 5.0 (5.0-6.5) Ur Specific [place] 1.015 (1.010-1.025) Urine Protein Negative (NEGATIVE) mg/dL Urine Glucose (UA) Normal (NORMAL) mg/dL Urine Ketones Negative (NEGATIVE) mg/dL Urine Occult Blood Large H (NEGATIVE) Urine Nitrite Negative (NEGATIVE) Urine Bilirubin Negative (NEGATIVE) Urine Urobilinogen Normal (NEGATIVE) mg/dL Ur Leukocyte Esterase Negative (NEGATIVE) Urine RBC >100 H (0-5) Urine WBC 0-5 (0-5) Ur Squamous Epith Cells Many H (NS,R,O) Urine Bacteria Few H (NS) 01/29/21 Range/Units 09:50 WBC (3.0-10.3) x10-3/uL RBC (3.60-5.20) x10(6)uL Hgb (11.4-15.5) g/dL Hct (34.2-48.2) % MCV (76.7-100.5) fL MCH (23.9-33.9) pg MCHC (31.9-34.8) g/dL RDW (12.3-16.5) % Plt Count (151-488) x10(3)uL MPV (7.1-12.4) fL Neut % (Auto) (30.8-76.2) % Lymph % (Auto) (18.4-52.1) % [place] % (Auto) (4.4-15.7) % Eos % (Auto) (0.6-8.1) % Baso % (Auto) (0.2-1.5) % Neut # (Auto) (1.5-6.3) x10-3/uL Lymph # (Auto) (1.0-4.4) x10-3/uL [place] # (Auto) (0.3-1.0) x10-3/uL Eos # (Auto) (0.0-0.8) x10-3/uL Baso # (Auto) (0.0-0.1) x10-3/uL Sodium (135-145) mmol/L Potassium (3.5-5.3) mmol/L Chloride (100-110) mmol/L Carbon Dioxide (21-32) mmol/L BUN (7-18) mg/dL Creatinine (0.55-1.02) mg/dL Est Cr Clr Drug Dosing mL/min Estimated GFR (MDRD) (>60) BUN/Creatinine Ratio (9-20) Glucose (80-116) mg/dL Calcium (8.6-10.2) mg/dL Total Bilirubin (0.1-1.3) mg/dL AST (5-25) IU/L ALT (12-36) U/L Alkaline Phosphatase (56-112) IU/L Total Protein (6.0-8.0) g/dL Albumin (3.5-5.2) g/dL Globulin g/dL Albumin/Globulin Ratio Amylase (25-115) U/L Lipase 119 (73-393) U/L Urine Color (YELLOW) Urine Appearance (CLEAR) Urine pH (5.0-6.5) Ur Specific [place] (1.010-1.025) Urine Protein (NEGATIVE) mg/dL Urine Glucose (UA) (NORMAL) mg/dL Urine Ketones (NEGATIVE) mg/dL Urine Occult Blood (NEGATIVE) Urine Nitrite (NEGATIVE) Urine Bilirubin (NEGATIVE) Urine Urobilinogen (NEGATIVE) mg/dL Ur Leukocyte Esterase (NEGATIVE) Urine RBC (0-5) Urine WBC (0-5) Ur Squamous Epith Cells (NS,R,O) Urine Bacteria (NS) Meds: Medications Discontinued Medications Generic Name Dose Route Start Last Admin Trade Name Freq PRN Reason Stop Dose Admin Al Hydroxide/Mg Hydroxide 15 0 ml 01/29/21 09:44 01/29/21 10:13 ml/ Lidocaine HCl 15 ml PO 01/29/21 09:45 30 ml ONETIME ONE Administration Hydromorphone HCl 1 mg 01/29/21 11:06 01/29/21 11:16 Hydromorphone 2 Mg/Ml Sdv IM 01/29/21 11:07 1 mg ONETIME ONE Administration Ketorolac Tromethamine 60 mg 01/29/21 09:44 01/29/21 10:13 Ketorolac 30 Mg/Ml Sdv IM 01/29/21 09:45 60 mg ONETIME ONE Administration Departure - Departure Time of Disposition: 12:24 Disposition: Home, Self-Care 01 Clinical Impression: Abdominal pain Qualifiers: Abdominal location: right lower quadrant Qualified Code(s): R10.31 - Right lower quadrant pain - Discharge Information Forms: ED Department Discharge Sepsis Event Note (ED) - Evaluation Sepsis Screening Result: No Definite Risk - Focused Exam Vital Signs: Vital Signs Temp Pulse Resp BP Pulse Ox 01/29/21 09:12 36.4 C 93 20 159/111 H 99 - My Orders Last 24 Hours: My Active Orders 01/29/21 11:05 Abdomen Pelvis wo Cont [CT] Stat - Assessment/Plan Last 24 Hours: My Active Orders 01/29/21 11:05 Abdomen Pelvis wo Cont [CT] Stat
[2021-01-29] MEDS ORDERED: HYDROmorphone 2 MG/ML SDV IM ONE (11:06)
--- NOTE | 2021-01-29 12:39 | CT ---
COMPUTERIZED TOMOGRAPHY OF THE ABDOMEN AND PELVIS WITHOUT CONTRAST INDICATION: Bilateral flank pain. TECHNIQUE: Spiral 2.5 mm axial sections were obtained through the abdomen and pelvis without contrast with sagittal and coronal reconstructions 01/29/21 and compared with 01/08/21. Total exam DLP was 802.39 mGy/cm. FINDINGS: The lower lung bustos and pleural spaces visualized show no evidence of acute process. The heart did not appear enlarged. No pericardial effusion was seen. The gallbladder is absent compatible with history of its removal with clips at the cystic duct. The liver was unremarkable. Adrenal glands, spleen, pancreas, common bile duct appeared normal. No evidence of renal calcinosis or obstructive uropathy was identified. Retroperitoneal lymphadenopathy is moderate and unchanged with one enlarged lymph node anterior adjacent to the IVC at the level of the lower pole of the right kidney measuring 19 mm maximally. Other lymph nodes are enlarged including a 13 mm lymph node anterior to the IVC and aorta at the level of the mid pole of the kidneys seen on coronal image 59 as was the 19 mm node mentioned above. These appear unchanged from the previous study. Etiology is indeterminate. Otherwise no focal mass is seen in the retroperitoneum. The appendix is absent compatible with history of its removal. No evidence of free air or bowel obstruction was seen. The uterus is absent compatible with history of its removal. The urinary bladder was not distended - did not appear grossly abnormal. No organomegaly, mass lesions or free fluid collections were identified in the abdomen or pelvis. No evidence of a ventral or inguinal hernia was identified. Evidence of a hernia repair is noted. IMPRESSION: 1. Retroperitoneal lymphadenopathy is mild to moderate and indeterminate in etiology. The largest nodes were 13 and 19 mm but are unchanged from the previous study of 01/08/21 and also unchanged from previous CT scan of 08/30/19. No retroperitoneal mass was otherwise suggested. 2. No specific etiology for the patient's abdominal pain was identified. 3. The patient is post appendectomy, cholecystectomy and hysterectomy. 4. No evidence of obstructive uropathy. Report was called to Dr. Stephens at 1157 hours 01/29/21. [facility]
== END 2021-01-29 12:47 | disposition home or self-care (01) ==
LOC: FB.ED 09:11
DX: R10.31 Right lower quadrant pain (principal); I10 Essential (primary) hypertension; E11.9 Type 2 diabetes mellitus without complications; F17.200 Nicotine dependence, unspecified, uncomplicated; E66.9 Obesity, unspecified; Z68.31 Body mass index [BMI] 31.0-31.9, adult; Z79.84 Long term (current) use of oral hypoglycemic drugs; Z79.899 Other long term (current) drug therapy; Z88.8 Allergy status to other drugs, medicaments and biological substances
CPT/HCPCS: 36415; 74176; 80053; 81001; 82150; 83690; 85025; 96372; 99285; A9270; J1170; J1885

== ENCOUNTER 2021-02-12 13:09 | Emergency (ER) | payer MEDICAID ==
[2021-02-12] MEDS ORDERED: Ondansetron 4 MG Tab.DIS PO ONE (13:10)
[2021-02-12 13:42] VITALS: BP 138/112; PULSE 99
[2021-02-12] MEDS ORDERED: diphenhydrAMINE 50 MG/ML SDV IVPUSH ONE ×2 (13:50→16:43)
[2021-02-12] MEDS ORDERED: methylPREDNISolone Sodium Succinate 125 MG/2 ML SDV IVPUSH ONE (13:50)
[2021-02-12] MEDS ORDERED: Ketorolac 30 MG/ML SDV IVPUSH ONE ×2 (13:50→16:43)
[2021-02-12] MEDS ORDERED: Metoclopramide 10 MG/2 ML SDV IVPUSH ONE (13:51)
[2021-02-12] MEDS ORDERED: Sodium Chloride 0.9% 1,000 ML IV SCH ×2 (14:00)
[2021-02-12] MEDS ORDERED: Iopamidol 755 Mg/ML 75 ML Bottle IV ONE (14:01)
--- NOTE | 2021-02-12 14:34 | EDM.PDOC ---
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 [employer], plans to return to [employer] soon, has a colonoscopy scheduled in [place] on 03/14 which was the earliest appointment has not seen a physician since last in ED 2w ago, has seen Dr Mendes in clinic in past several months ago took ibuprofen and APAP at 11a developed fever 2d ago pain in mainly LUQ and RLQ without radiation says she has not eaten in 5d not wearing pad in her underclothes, as RBC per rectum, red to dark, no mucus has had N and some V pain 12/29 now, not able to manage pain at home Abdominal Pain Score (Numeric/FACES): 8 - Related Data Allergies Allergy/AdvReac Type Severity Reaction Status Date / Time diclofenac Allergy Wheezing Verified 02/12/21 13:42 fluconazole Allergy Wheezing Verified 02/12/21 13:42 propoxyphene Allergy Wheezing Verified 02/12/21 13:42 [From Casey-N] tramadol Allergy Shortness Verified 02/12/21 13:42 of Breath Home Meds: Home Meds Mirtazapine 45 mg PO BEDTIME 09/25/19 [History] tiZANidine [Zanaflex] 4 mg PO TID PRN 01/08/21 [History] Amitriptyline [Elavil] 25 mg PO BEDTIME 01/29/21 [History] Ciprofloxacin HCl [Cipro] 500 mg PO BID #7 tablet 01/29/21 [Rx] atorvaSTATin [Lipitor] 10 mg PO DAILY 01/29/21 [History] glipiZIDE [Glucotrol XL] 5 mg PO DAILY 01/29/21 [History] Ondansetron [Ondansetron ODT] 4 mg PO Q6H PRN #6 tab.rapdis 02/12/21 [Rx] diphenhydrAMINE HCL [Banophen] 50 mg PO QID #28 capsule 02/12/21 [Rx] predniSONE 20 mg PO ASDIRECTED #8 tab 02/12/21 [Rx] Past Medical History HEENT History: Reports: None Cardiovascular History: Reports: Hypertension Respiratory History: Reports: Other (See Below) Other Respiratory History: on and off smoker. Gastrointestinal History: Reports: Inflammatory Bowel Disease Other Gastrointestinal History: hx ulcerative colitis, ABD PAIN Genitourinary History: Reports: Renal Calculus, UTI, Recurrent Other Genitourinary History: Kidney stones, HEMATURIA RN CARDIAC History: Reports: Dysfunctional Uterine Bleeding, Other RN CARDIAC History: . Musculoskeletal History: Reports: Back Pain, Chronic Neurological History: Reports: Migraines Psychiatric History: Reports: Addiction, Anxiety, Autism, Depression, Other (See Below) Other Psychiatric History: Pain contract has been broken. Endocrine/Metabolic History: Reports: Diabetes Mellitus, Type 3c, Obesity/BMI 30+ Other Endocrine/Metabolic History: Denies taking any meds at this time, diet controlled. Hematologic History: Reports: None Immunologic History: Reports: None Oncologic (Cancer) History: Reports: None Dermatologic History: Reports: Other (See Below) Other Dermatologic History: States she was MRSA positive in November 2017. - Infectious Disease History Infectious Disease History: Reports: Chicken Pox, MRSA - Past Surgical History Head Surgeries/Procedures: Reports: None HEENT Surgical History: Reports: Adenoidectomy, Naso-Sinus Surgery, Oral Surgery, Tonsillectomy Cardiovascular Surgical History: Reports: None GI Surgical History: Reports: Appendectomy, Cholecystectomy, Colonoscopy, Hernia Repair/Other Female Surgical History: Reports: Section, D&C, Hysterectomy Other Female Surgeries/Procedures: hysterectomy, CS x 1 Endocrine Surgical History: Reports: None Oncologic Surgical History: Reports: None Social & Family History - Family History Family Medical History: No Pertinent Family History - Caffeine Use Caffeine Use: Reports: Coffee, Soda, Tea - Recreational Drug Use Recreational Drug Use: No - Living Situation & Occupation Occupation: Employed (Works at [employer] - Review of Systems Review Of Systems: See Below Constitutional: Reports: Fever HEENT: Reports: No Symptoms Respiratory: Reports: No Symptoms Cardiovascular: Reports: No Symptoms Endocrine: Reports: No Symptoms GI/Abdominal: Reports: Abdominal Pain, Nausea, Vomiting : Reports: No Symptoms Musculoskeletal: Reports: No Symptoms Skin: Reports: No Symptoms Neurological: Reports: No Symptoms Psychiatric: Reports: No Symptoms Hematologic/Lymphatic: Reports: No Symptoms Immunologic: Reports: No Symptoms ED EXAM, GI/ABD - Physical Exam Exam: See Below Exam Limited By: No Limitations General Appearance: Alert, WD/WN, Mild Distress, Other (sit in chair, leaning forward slightly, appears mildly uncomfortable) Eyes: Bilateral: Normal Appearance, EOMI Ears: Hearing Grossly Normal Nose: Normal Inspection, Normal Mucosa, No Blood Throat/Mouth: Normal Inspection, Normal Lips, Normal Teeth, Normal Voice, No Airway Compromise Head: Atraumatic, Normocephalic Neck: Normal Inspection, Supple, Non-Tender, Full Range of Motion. No: Lymphadenopathy (R), Lymphadenopathy (L) Respiratory/Chest: No Respiratory Distress, Lungs Clear, Normal Breath Sounds, No Accessory Muscle Use, Chest Non-Tender Cardiovascular: Regular Rate, Rhythm, No Edema, No Gallop, No Murmur GI/Abdominal Exam: Other (1-2+ tender to deep palp in LUQ at SCM at AAL, 1+ tender to deep palp localized RLQ lateral in AAL, flanks nontender, mild tender at RUQ in MAL, minimal tender at LLQ, mild distention) Rectal (Female) Exam: Deferred Extremities: Normal Inspection, Normal Range of Motion, Non-Tender, No Pedal Edema, Other (mild dec'd turgor x 4, no tenting) Neurological: Alert, Oriented, CN II-XII Intact, Normal Cognition, No Motor/Sensory Deficits Psychiatric: Normal Affect, Normal Mood Skin Exam: Warm, Dry, Intact, Normal Color, No Rash Lymphatic: No Adenopathy Course - Vital Signs Last Recorded V/S: Last Vital Signs Temp 36.8 C 02/12/21 13:15 Pulse 99 02/12/21 13:15 Resp 20 02/12/21 13:15 BP 138/112 H 02/12/21 13:15 Pulse Ox 98 02/12/21 13:15 - Orders/Labs/Meds Orders: Active Orders 24 hr Category Date Time Status Sodium Chloride 0.9% [Normal Saline] 1,000 ml Med 02/12/21 14:00 Active IV ASDIRECTED Sodium Chloride 0.9% [Normal Saline] 1,000 ml Med 02/12/21 14:00 Active IV ASDIRECTED Medication Orders Sodium Chloride (Normal Saline) 1,000 mls @ 999 mls/hr IV ASDIRECTED [facility] Last Admin: 02/12/21 15:00 Dose: 999 mls/hr Documented by: SANA Sodium Chloride (Normal Saline) 1,000 mls @ 999 mls/hr IV ASDIRECTED [facility] Labs: Laboratory Tests 02/12/21 02/12/21 02/12/21 Range/Units 14:40 14:40 14:50 WBC 8.8 (3.0-10.3) x10-3/uL RBC 5.18 (3.60-5.20) x10(6)uL Hgb 14.1 (11.4-15.5) g/dL Hct 42.2 (34.2-48.2) % MCV 81.5 (76.7-100.5) fL MCH 27.3 (23.9-33.9) pg MCHC 33.5 (31.9-34.8) g/dL RDW 19.1 H (12.3-16.5) % Plt Count 211 (151-488) x10(3)uL MPV 8.2 (7.1-12.4) fL Neut % (Auto) 59.1 (30.8-76.2) % Lymph % (Auto) 34.6 (18.4-52.1) % [place] % (Auto) 5.3 (4.4-15.7) % Eos % (Auto) 0.4 L (0.6-8.1) % Baso % (Auto) 0.6 (0.2-1.5) % Neut # (Auto) 5.2 (1.5-6.3) x10-3/uL Lymph # (Auto) 3.0 (1.0-4.4) x10-3/uL [place] # (Auto) 0.5 (0.3-1.0) x10-3/uL Eos # (Auto) 0.0 (0.0-0.8) x10-3/uL Baso # (Auto) 0.1 (0.0-0.1) x10-3/uL ESR 5 (0-20) mm/hr Sodium (135-145) mmol/L Potassium (3.5-5.3) mmol/L Chloride (100-110) mmol/L Carbon Dioxide (21-32) mmol/L BUN (7-18) mg/dL Creatinine (0.55-1.02) mg/dL Est Cr Clr Drug Dosing mL/min Estimated GFR (MDRD) (>60) BUN/Creatinine Ratio (9-20) Glucose (80-116) mg/dL Calcium (8.6-10.2) mg/dL Magnesium (1.8-2.5) mg/dL Total Bilirubin (0.1-1.3) mg/dL AST (5-25) IU/L ALT (12-36) U/L Alkaline Phosphatase (56-112) IU/L C-Reactive Protein (0.5-0.9) mg/dL Total Protein (6.0-8.0) g/dL Albumin (3.5-5.2) g/dL Globulin g/dL Albumin/Globulin Ratio Lipase (73-393) U/L Urine Color Yellow (YELLOW) Urine Appearance Clear (CLEAR) Urine pH 6.5 (5.0-6.5) Ur Specific [place] 1.010 (1.010-1.025) Urine Protein 30 H (NEGATIVE) mg/dL Urine Glucose (UA) Normal (NORMAL) mg/dL Urine Ketones Negative (NEGATIVE) mg/dL Urine Occult Blood Large H (NEGATIVE) Urine Nitrite Negative (NEGATIVE) Urine Bilirubin Negative (NEGATIVE) Urine Urobilinogen Normal (NEGATIVE) mg/dL Ur Leukocyte Esterase Negative (NEGATIVE) Urine RBC 5-10 H (0-5) Urine WBC 0-5 (0-5) Ur Squamous Epith Cells Few H (NS,R,O) Urine Bacteria Few H (NS) Urine HCG, Qual Negative (NEGATIVE) 02/12/21 02/12/21 02/12/21 Range/Units 14:50 14:50 14:50 WBC (3.0-10.3) x10-3/uL RBC (3.60-5.20) x10(6)uL Hgb (11.4-15.5) g/dL Hct (34.2-48.2) % MCV (76.7-100.5) fL MCH (23.9-33.9) pg MCHC (31.9-34.8) g/dL RDW (12.3-16.5) % Plt Count (151-488) x10(3)uL MPV (7.1-12.4) fL Neut % (Auto) (30.8-76.2) % Lymph % (Auto) (18.4-52.1) % [place] % (Auto) (4.4-15.7) % Eos % (Auto) (0.6-8.1) % Baso % (Auto) (0.2-1.5) % Neut # (Auto) (1.5-6.3) x10-3/uL Lymph # (Auto) (1.0-4.4) x10-3/uL [place] # (Auto) (0.3-1.0) x10-3/uL Eos # (Auto) (0.0-0.8) x10-3/uL Baso # (Auto) (0.0-0.1) x10-3/uL ESR (0-20) mm/hr Sodium 140 (135-145) mmol/L Potassium 4.1 (3.5-5.3) mmol/L Chloride 102 (100-110) mmol/L Carbon Dioxide 23 (21-32) mmol/L BUN 10 (7-18) mg/dL Creatinine 0.8 (0.55-1.02) mg/dL Est Cr Clr Drug Dosing 67.81 mL/min Estimated GFR (MDRD) > 60 (>60) BUN/Creatinine Ratio 12.5 (9-20) Glucose 98 (80-116) mg/dL Calcium 9.2 (8.6-10.2) mg/dL Magnesium 2.0 (1.8-2.5) mg/dL Total Bilirubin 0.2 (0.1-1.3) mg/dL AST 28 H D (5-25) IU/L ALT 63 H D (12-36) U/L Alkaline Phosphatase 90 (56-112) IU/L C-Reactive Protein 1.1 H (0.5-0.9) mg/dL Total Protein 8.3 H (6.0-8.0) g/dL Albumin 4.2 (3.5-5.2) g/dL Globulin 4.1 g/dL Albumin/Globulin Ratio 1.0 Lipase 135 (73-393) U/L Urine Color (YELLOW) Urine Appearance (CLEAR) Urine pH (5.0-6.5) Ur Specific [place] (1.010-1.025) Urine Protein (NEGATIVE) mg/dL Urine Glucose (UA) (NORMAL) mg/dL Urine Ketones (NEGATIVE) mg/dL Urine Occult Blood (NEGATIVE) Urine Nitrite (NEGATIVE) Urine Bilirubin (NEGATIVE) Urine Urobilinogen (NEGATIVE) mg/dL Ur Leukocyte Esterase (NEGATIVE) Urine RBC (0-5) Urine WBC (0-5) Ur Squamous Epith Cells (NS,R,O) Urine Bacteria (NS) Urine HCG, Qual (NEGATIVE) Meds: Medications Generic Name Dose Route Start Last Admin Trade Name Freq PRN Reason Stop Dose Admin Sodium Chloride 1,000 mls @ 999 mls/hr 02/12/21 14:00 02/12/21 15:00 Normal Saline IV 999 mls/hr ASDIRECTED LYNETTE Administration Sodium Chloride 1,000 mls @ 999 mls/hr 02/12/21 14:00 Normal Saline IV ASDIRECTED LYNETTE Discontinued Medications Generic Name Dose Route Start Last Admin Trade Name Freq PRN Reason Stop Dose Admin Diphenhydramine HCl 25 mg 02/12/21 13:50 02/12/21 15:00 Diphenhydramine 50 Mg/Ml Sdv IVPUSH 02/12/21 13:51 25 mg ONETIME ONE Administration Diphenhydramine HCl 25 mg 02/12/21 16:43 Diphenhydramine 50 Mg/Ml Sdv IVPUSH 02/12/21 16:44 ONETIME ONE Iopamidol 75 ml 02/12/21 14:01 02/12/21 14:38 Iopamidol 755 Mg/Ml 75 Ml Bottle IV 02/12/21 14:02 75 ml ONETIME ONE Administration Ketorolac Tromethamine 30 mg 02/12/21 13:50 02/12/21 14:59 Ketorolac 30 Mg/Ml Sdv IVPUSH 02/12/21 13:51 30 mg ONETIME ONE Administration Ketorolac Tromethamine 15 mg 02/12/21 16:43 Ketorolac 30 Mg/Ml Sdv IVPUSH 02/12/21 16:44 ONETIME ONE Methylprednisolone Sodium Succinate 125 mg 02/12/21 13:50 02/12/21 15:00 Methylprednisolone Sodium Succinate 125 Mg/2 Ml Sdv IVPUSH 02/12/21 13:51 125 mg ONETIME ONE Administration Metoclopramide HCl 10 mg 02/12/21 13:51 02/12/21 14:59 Metoclopramide 10 Mg/2 Ml Sdv IVPUSH 02/12/21 13:52 10 mg ONETIME ONE Administration - Re-Assessments/Exams Free Text/Narrative Re-Assessment/Exam: 02/12/21 17:27 ESR 5, CRP only slightly inc'd 1.1 which is lower than in the past CT abd/pelvis with IV contrast d/w Dr Fernández, no acute changes labs unremarkable mild to mod dehydration on uj/a pt did have a small "squirt" of blood at CT scan, c/w ulcerative colitis despite neg labs MPMP shows 19 controlled meds in 2020, including Suboxone need for multi-modality approach to pain emphasized pt states she has been staying with her child near [place] and wanted to use the pharmacy there Departure - Departure Time of Disposition: 17:18 Disposition: Home, Self-Care 01 Condition: Good Clinical Impression: Exacerbation of ulcerative colitis, Dehydration, Colon spasm - Discharge Information *PRESCRIPTION DRUG MONITORING PROGRAM REVIEWED*: Yes *COPY OF PRESCRIPTION DRUG MONITORING REPORT IN PATIENT PAULA: Yes Prescriptions: diphenhydrAMINE HCL [Banophen] 50 mg PO QID #28 capsule Ondansetron [Ondansetron ODT] 4 mg PO Q6H PRN #6 tab.rapdis PRN Reason: Nausea predniSONE 20 mg PO ASDIRECTED #8 tab Instructions: Ulcerative Colitis, Adult, Rehydration, Adult Referrals: PCP,None [Primary Care Provider] - Forms: ED Department Discharge Additional Instructions: For pain and inflammation, take sulfa pill 4 times a day as prescribed. For pain and inflammation, take ibuprofen 200 mg 3 tabs 4 times a day for 7 days. For pain and inflammation, take acetaminophen 500 mg 2 tabs 4 times a day for 7 days. For pain and cramping, take diphenhydramine 50 mg 1 capsule 4 times a day for 7 days. For pain and inflammation, take prednisone 20 mg 2 tabs tomorrow, then 1 tab daily for 5 days. For nausea, take ondansetron ODT 4 mg 1 tab under the tongue every 6 hours as needed. For pain and cramping and sleep, take trazodone 25 mg 1 tab at bedtime. For pain and cramping, use moist heat in shower or tub for 10 minutes eery 1-2 hours as needed. Increase fluids. Get adequate rest. Call GI in 3 days and request a sick visit next week. (Keep the colonoscopy appointment next month). Call or return to Emergency Department if you are feeling worse. Sepsis Event Note (ED) - Evaluation Sepsis Screening Result: No Definite Risk - Focused Exam Vital Signs: Vital Signs Temp Pulse Resp BP Pulse Ox 02/12/21 13:15 36.8 C 99 20 138/112 H 98 - My Orders Last 24 Hours: My Active Orders 02/12/21 14:00 Sodium Chloride 0.9% [Normal Saline] 1,000 ml IV ASDIRECTED Sodium Chloride 0.9% [Normal Saline] 1,000 ml IV ASDIRECTED - Assessment/Plan Last 24 Hours: My Active Orders 02/12/21 14:00 Sodium Chloride 0.9% [Normal Saline] 1,000 ml IV ASDIRECTED Sodium Chloride 0.9% [Normal Saline] 1,000 ml IV ASDIRECTED
--- NOTE | 2021-02-12 15:56 | CT ---
INDICATION: History of ulcerative colitis. Fever x two days. Increased pain, question abscess. CT ABDOMEN AND PELVIS WITH CONTRAST: Spiral 3.75 mm axial sections were obtained through the abdomen with 75 mL [id number] at 2 mL/second utilizing sagittal and coronal reconstructions, 02/12/21 and compared with 01/29/21. TOTAL EXAM DLP: 646.99 mGy/cm. A definite active infiltrate or effusion was not identified. The heart did not appear enlarged. No pericardial effusion was seen. The gallbladder is absent with clips at the cystic duct, compatible with history of cholecystectomy. The liver, adrenal glands, spleen, and pancreas, as well as common bile duct appeared normal. A tiny probable cyst is noted in the upper middle pole area of the right kidney. The kidneys are otherwise unremarkable without evidence of obstructive uropathy or solid masses. No retroperitoneal mass was noted. Retroperitoneal lymphadenopathy is unchanged with a few somewhat enlarged lymph nodes again noted - these appear stable. The appendix and uterus are absent, compatible with their removal. No evidence of bowel obstruction or free air was seen. Evidence of previous surgery is noted with clips in the lower pelvis area anteriorly, likely on the basis of appendectomy. Mild thickening of the wall of the colon could be present at the splenic flexure, which could represent residual or recurrent ulcerative colitis. In the right lower quadrant at the site of appendectomy, there is what appears to be the cecum adjacent to the anterior abdominal wall with a clip in that area. The possibility of adhesions affixing that loop of bowel in place would be a consideration. No other complicating processes were suggested in that area post appendectomy. No organomegaly, mass lesions or free fluid collections were otherwise identified - no finding to strongly suggest an abscess is seen - no finding to strongly suggest colitis acutely is noted. No evidence of a ventral or inguinal hernia is seen. IMPRESSION: 1. Stable retroperitoneal lymphadenopathy. 2. Tiny probable simple cyst upper middle pole right kidney. 3. Post appendectomy, cholecystectomy, hysterectomy. 4. Very slight thickening of the wall of the descending colon at the splenic flexure raises question of minimal or residual ulcerative colitis in that area. 5. There is a possibility of adhesion of the area of the cecum post appendectomy to the anterior abdominal wall. Report was called to Dr. Mcgrath at 1505 hours, 02/12/21. [facility]
[2021-02-12] MEDS ORDERED: predniSONE 20 MG Tab PO ONE (17:19)
== END 2021-02-12 17:45 | disposition home or self-care (01) ==
LOC: FB.ED 13:09
DX: K51.90 Ulcerative colitis, unspecified, without complications (principal); E86.0 Dehydration; I10 Essential (primary) hypertension; E11.9 Type 2 diabetes mellitus without complications; E66.9 Obesity, unspecified; Z68.30 Body mass index [BMI] 30.0-30.9, adult; Z88.8 Allergy status to other drugs, medicaments and biological substances; Z88.5 Allergy status to narcotic agent; Z79.84 Long term (current) use of oral hypoglycemic drugs; Z79.899 Other long term (current) drug therapy
CPT/HCPCS: 36415; 74177; 80053; 81001; 81025; 83690; 83735; 85025; 85651; 86140; 96374; 96375; 96376; 99284; A9270; J1200; J1885; J2765; J2930; J7030; J7512; Q9967

== ENCOUNTER 2021-03-28 18:22 | Emergency (ER) | payer MEDICAID ==
[2021-03-28] MEDS ORDERED: Acetaminophen/HYDROcodone 325-5 MG Tab PO ONE (18:23)
[2021-03-28] MEDS ORDERED: traMADol 50 MG Tab PO ONE (18:23)
[2021-03-28 18:47] VITALS: BP 152/91; PULSE 87
--- NOTE | 2021-03-28 18:58 | EDM.PDOC ---
ED HPI GENERAL MEDICAL PROBLEM - General Chief Complaint: Headache Stated Complaint: MIGRAINE Time Seen by Provider: 03/28/21 18:35 Source of Information: Reports: Patient History Limitations: Reports: No Limitations - History of Present Illness INITIAL COMMENTS - FREE TEXT/NARRATIVE: Patient presented to the ed because of headache,11/28, with associated nausea but no vomiting. There is no fever or chills, cough or cold symptoms. she took oral toradol without any relief. headache Pain Score (Numeric/FACES): 6 - Related Data Allergies Allergy/AdvReac Type Severity Reaction Status Date / Time diclofenac Allergy Wheezing Verified 03/28/21 18:38 fluconazole Allergy Wheezing Verified 03/28/21 18:38 propoxyphene Allergy Wheezing Verified 03/28/21 18:38 [From Darjonatant-N] tramadol Allergy Shortness Verified 03/28/21 18:38 of Breath Home Meds: Home Meds Mirtazapine 45 mg PO BEDTIME 09/25/19 [History] atorvaSTATin [Lipitor] 10 mg PO DAILY 01/29/21 [History] Buprenorphine HCl/Naloxone HCl [Buprenorphine-Nalox 8-2 mg Tab] 1 tab SL ASDIRECTED 03/28/21 [History] FLUoxetine HCl [Prozac] 60 mg PO DAILY 03/28/21 [History] Ketorolac [Toradol] 10 mg PO TID PRN 03/28/21 [History] Ondansetron [Zofran ODT] 4 mg PO Q4H PRN #5 tab.dis 03/28/21 [Rx] glipiZIDE [Glucotrol] 10 mg PO DAILY 03/28/21 [History] Past Medical History HEENT History: Reports: None Cardiovascular History: Reports: Hypertension Respiratory History: Reports: Other (See Below) Other Respiratory History: on and off smoker. 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 Musculoskeletal History: Reports: Back Pain, Chronic Neurological History: Reports: Migraines Psychiatric History: Reports: Addiction, Anxiety, Autism, Depression, Other (See Below) Other Psychiatric History: Pain contract has been broken. Endocrine/Metabolic History: Reports: Diabetes Mellitus, Type 3c, Obesity/BMI 30+ Other Endocrine/Metabolic History: Denies taking any meds at this time, diet controlled. Hematologic History: Reports: None Immunologic History: Reports: None Oncologic (Cancer) History: Reports: None Dermatologic History: Reports: Other (See Below) Other Dermatologic History: States she was MRSA positive in November 2017. - Infectious Disease History Infectious Disease History: Reports: Chicken Pox, MRSA - Past Surgical History Head Surgeries/Procedures: Reports: None HEENT Surgical History: Reports: Adenoidectomy, Naso-Sinus Surgery, Oral Surgery, Tonsillectomy Cardiovascular Surgical History: Reports: None Other Respiratory Surgeries/Procedures: unable to get information as of this time GI Surgical History: Reports: Appendectomy, Cholecystectomy, Colonoscopy, Hernia Repair/Other Female Surgical History: Reports: Section, D&C, Hysterectomy Other Female Surgeries/Procedures: hysterectomy, CS x 1 Endocrine Surgical History: Reports: None Oncologic Surgical History: Reports: None Social & Family History - Family History Family Medical History: No Pertinent Family History - Tobacco Use Tobacco Use Status *Q: Never Tobacco User - Caffeine Use Caffeine Use: Reports: None - Living Situation & Occupation Occupation: Employed (Works at [employer] ED ROS GENERAL - Review of Systems Review Of Systems: See Below Constitutional: Reports: No Symptoms HEENT: Reports: No Symptoms Respiratory: Reports: No Symptoms Cardiovascular: Reports: No Symptoms Endocrine: Reports: No Symptoms GI/Abdominal: Reports: Nausea : Reports: No Symptoms Musculoskeletal: Reports: No Symptoms Neurological: Reports: Headache Psychiatric: Reports: No Symptoms ED EXAM, NEURO - Physical Exam Exam: See Below Exam Limited By: No Limitations General Appearance: Alert, No Apparent Distress Ears: Normal External Exam, Normal Canal, Normal TMs Nose: Normal Inspection, Normal Mucosa, No Blood Throat/Mouth: Normal Inspection, Normal Lips, Normal Teeth Head Exam: Atraumatic, Normocephalic Neck: Normal Inspection, Supple, Non-Tender, Full Range of Motion Respiratory/Chest: No Respiratory Distress, Lungs Clear, Normal Breath Sounds, No Accessory Muscle Use, Chest Non-Tender Cardiovascular: Normal Peripheral Pulses, Regular Rate, Rhythm, No Edema, No JVD, No Murmur, No Rub GI/Abdominal: Normal Bowel Sounds, Soft, Non-Tender, No Organomegaly, No Distention, No Abnormal Bruit Neurological: Alert, Normal Mood/Affect Course - Vital Signs Text/Narrative:: o 5 mg PO x1 Zofran ODT 4 mg PO x1 Tramadol was entered in error and was not given Last Recorded V/S: Last Vital Signs Temp 36.2 C 03/28/21 18:30 Pulse 87 03/28/21 18:30 Resp 18 03/28/21 18:30 BP 152/91 H 03/28/21 18:30 Pulse Ox 96 03/28/21 18:30 - Orders/Labs/Meds Meds: Medications Discontinued Medications Generic Name Dose Route Start Last Admin Trade Name Freq PRN Reason Stop Dose Admin Hydrocodone Bitart/Acetaminophen 4 tab 03/28/21 18:23 Acetaminophen/Hydrocodone 325-5 Mg Tab PO 03/28/21 18:24 .STK-MED ONE Ondansetron HCl 4 mg 03/28/21 18:56 03/28/21 19:05 Ondansetron 4 Mg Tab.Dis PO 03/28/21 18:57 4 mg NOW STA Administration Tramadol HCl 200 mg 03/28/21 18:23 Tramadol 50 Mg Tab PO 03/28/21 18:24 .STK-MED ONE Departure - Departure Time of Disposition: 19:00 Disposition: Home, Self-Care 01 Condition: Good Clinical Impression: Migraine - Discharge Information Prescriptions: Ondansetron [Zofran ODT] 4 mg PO Q4H PRN #5 tab.dis PRN Reason: Nausea Instructions: Migraine Headache, [id number] Referrals: PCP,None [Primary Care Provider] - Forms: ED Department Discharge Additional Instructions: Please read discharge instructions on Migraine Take toradol 10 mg with norco 5 mg every 6 hours as needed for headache Zofran ODT every 4 hours as needed for nausea Follow up as needed Sepsis Event Note (ED) - Evaluation Sepsis Screening Result: No Definite Risk
[2021-03-28] MEDS: Ondansetron 4 MG Tab.DIS PO STA (19:05)
== END 2021-03-28 19:15 | disposition home or self-care (01) ==
LOC: FB.ED 18:22
DX: G43.909 Migraine, unspecified, not intractable, without status migrainosus (principal); I10 Essential (primary) hypertension; E11.9 Type 2 diabetes mellitus without complications; F17.200 Nicotine dependence, unspecified, uncomplicated; E66.9 Obesity, unspecified; Z68.32 Body mass index [BMI] 32.0-32.9, adult; Z88.8 Allergy status to other drugs, medicaments and biological substances; Z88.5 Allergy status to narcotic agent; Z79.84 Long term (current) use of oral hypoglycemic drugs; Z79.899 Other long term (current) drug therapy
CPT/HCPCS: 99283; A9270

== ENCOUNTER 2021-03-30 15:15 | Emergency (ER) | payer MEDICAID ==
[2021-03-30] MEDS ORDERED: Ketorolac 30 MG/ML SDV IM STA (16:34)
[2021-03-30] MEDS ORDERED: Ondansetron 4 MG Tab.DIS PO STA (16:34)
[2021-03-30] MEDS ORDERED: Acetaminophen/HYDROcodone 325-5 MG Tab PO ONE (16:34)
--- NOTE | 2021-03-30 17:22 | EDM.PDOC ---
ED HPI GENERAL MEDICAL PROBLEM - General Chief Complaint: Headache Stated Complaint: MIGRAINE Time Seen by Provider: 03/30/21 17:00 Source of Information: Reports: Patient History Limitations: Reports: No Limitations - History of Present Illness INITIAL COMMENTS - FREE TEXT/NARRATIVE: Headche for 2 days with associated nausea and photophobia. She was seen 2 days ago for the same. She was advised to follow up with her PMD but she didn't. - Related Data Allergies Allergy/AdvReac Type Severity Reaction Status Date / Time diclofenac Allergy Wheezing Verified 03/30/21 16:44 fluconazole Allergy Wheezing Verified 03/30/21 16:44 propoxyphene Allergy Wheezing Verified 03/30/21 16:44 [From Darvocet-N] tramadol Allergy Shortness Verified 03/30/21 16:44 of Breath Home Meds: Home Meds Mirtazapine 45 mg PO BEDTIME 09/25/19 [History] atorvaSTATin [Lipitor] 10 mg PO DAILY 01/29/21 [History] Buprenorphine HCl/Naloxone HCl [Buprenorphine-Nalox 8-2 mg Tab] 1 tab SL ASDIRECTED 03/28/21 [History] FLUoxetine HCl [Prozac] 60 mg PO DAILY 03/28/21 [History] Ketorolac [Toradol] 10 mg PO TID PRN 03/28/21 [History] Ondansetron [Zofran ODT] 4 mg PO Q4H PRN #5 tab.dis 03/28/21 [Rx] glipiZIDE [Glucotrol] 10 mg PO DAILY 03/28/21 [History] Past Medical History HEENT History: Reports: None Cardiovascular History: Reports: Hypertension Respiratory History: Reports: Other (See Below) Other Respiratory History: on and off smoker. 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 Musculoskeletal History: Reports: Back Pain, Chronic Neurological History: Reports: Migraines Psychiatric History: Reports: Addiction, Anxiety, Autism, Depression, Other (See Below) Other Psychiatric History: Pain contract has been broken. Endocrine/Metabolic History: Reports: Diabetes Mellitus, Type 3c, Obesity/BMI 30+ Other Endocrine/Metabolic History: Denies taking any meds at this time, diet controlled. Hematologic History: Reports: None Immunologic History: Reports: None Oncologic (Cancer) History: Reports: None Dermatologic History: Reports: Other (See Below) Other Dermatologic History: States she was MRSA positive in November 2017. - Infectious Disease History Infectious Disease History: Reports: Chicken Pox, MRSA - Past Surgical History Head Surgeries/Procedures: Reports: None HEENT Surgical History: Reports: Adenoidectomy, Naso-Sinus Surgery, Oral Surgery, Tonsillectomy Cardiovascular Surgical History: Reports: None Other Respiratory Surgeries/Procedures: unable to get information as of this time GI Surgical History: Reports: Appendectomy, Cholecystectomy, Colonoscopy, Hernia Repair/Other Female Surgical History: Reports: Section, D&C, Hysterectomy Other Female Surgeries/Procedures: hysterectomy, CS x 1 Endocrine Surgical History: Reports: None Oncologic Surgical History: Reports: None Social & Family History - Family History Family Medical History: No Pertinent Family History - Caffeine Use Caffeine Use: Reports: None - Living Situation & Occupation Occupation: Employed (Works at [employer] ED ROS GENERAL - Review of Systems Review Of Systems: See Below Constitutional: Reports: No Symptoms HEENT: Reports: No Symptoms Respiratory: Reports: No Symptoms Cardiovascular: Reports: No Symptoms Endocrine: Reports: No Symptoms GI/Abdominal: Reports: No Symptoms : Reports: No Symptoms Musculoskeletal: Reports: No Symptoms Skin: Reports: No Symptoms Neurological: Reports: Headache Psychiatric: Reports: No Symptoms Hematologic/Lymphatic: Reports: No Symptoms ED EXAM, NEURO - Physical Exam Exam: See Below Exam Limited By: No Limitations General Appearance: Alert, No Apparent Distress Ears: Normal External Exam, Normal Canal, Hearing Grossly Normal Nose: Normal Inspection, Normal Mucosa, No Blood Throat/Mouth: Normal Inspection, Normal Lips, Normal Teeth Head Exam: Atraumatic, Normocephalic Neck: Normal Inspection, Supple, Non-Tender, Full Range of Motion Respiratory/Chest: No Respiratory Distress, Lungs Clear, Normal Breath Sounds Cardiovascular: Normal Peripheral Pulses, Regular Rate, Rhythm, No Edema, No Gallop, No JVD, No Murmur GI/Abdominal: Normal Bowel Sounds, Soft, Non-Tender, No Organomegaly Neurological: Alert, Normal Mood/Affect, Normal Dorsiflexion, CN II-XII Intact, Normal Plantar Flexion, Normal Gait, No Motor/Sensory Deficits Course - Vital Signs Text/Narrative:: Toradol 60 mg IM x1 Leona 5 mg, 2 PO x1 Zofran ODT 4 mg PO x1 - Orders/Labs/Meds Meds: Medications Discontinued Medications Generic Name Dose Route Start Last Admin Trade Name Antonia PRN Reason Stop Dose Admin Hydrocodone Bitart/Acetaminophen 2 tab 03/30/21 16:34 03/30/21 16:46 Acetaminophen/Hydrocodone 325-5 Mg Tab PO 03/30/21 16:35 2 tab ONETIME ONE Administration Ketorolac Tromethamine 60 mg 03/30/21 16:34 03/30/21 16:47 Ketorolac 30 Mg/Ml Sdv IM 03/30/21 16:35 60 mg NOW STA Administration Ondansetron HCl 4 mg 03/30/21 16:34 03/30/21 16:46 Ondansetron 4 Mg Tab.Dis PO 03/30/21 16:35 4 mg NOW STA Administration Departure - Departure Time of Disposition: 18:00 Disposition: Home, Self-Care 01 Condition: Good Clinical Impression: Migraine headache - Discharge Information Instructions: Migraine Headache, [id number] Referrals: PCP,None [Primary Care Provider] - Forms: ED Department Discharge Additional Instructions: Please read discharge instructions on migraine Continue your medications Follow up with your doctor tomorrow
[2021-03-30 21:24] VITALS: BP 128/86; PULSE 98
== END 2021-03-30 17:45 | disposition home or self-care (01) ==
LOC: FB.ED 15:15
DX: G43.909 Migraine, unspecified, not intractable, without status migrainosus (principal); I10 Essential (primary) hypertension; E13.9 Other specified diabetes mellitus without complications; E66.9 Obesity, unspecified; Z68.30 Body mass index [BMI] 30.0-30.9, adult; Z88.5 Allergy status to narcotic agent; Z88.8 Allergy status to other drugs, medicaments and biological substances; Z79.899 Other long term (current) drug therapy
CPT/HCPCS: 96372; 99283; A9270; J1885

== ENCOUNTER 2021-05-01 12:44 | Emergency (ER) | payer SELFPAY ==
[2021-05-01] MEDS ORDERED: Ondansetron 4 MG Tab.DIS PO ONE (12:45)
[2021-05-01] MEDS ORDERED: Acetaminophen/HYDROcodone 325-5 MG Tab PO ONE ×2 (12:45→15:33)
--- NOTE | 2021-05-01 13:02 | EDM.PDOC ---
ED HPI GENERAL MEDICAL PROBLEM - General Stated Complaint: kidney stone Time Seen by Provider: 05/01/21 12:58 Source of Information: Reports: Patient History Limitations: Reports: No Limitations - History of Present Illness INITIAL COMMENTS - FREE TEXT/NARRATIVE: 41-year-old female who reports since 2 AM she was awakened with right mid back and flank pain and it seemed to radiate around from her right mid back to her right abdomen. Her chest that she also noticed some hematuria as well. The pain had a constant dull under pain but there was waxing and waning colicky cramping and sharp type pains. Have nausea with vomiting 2 and she noted that she had a temp of 100.9F prior to coming in. She has had no diarrhea. The pain is worse when she is up and moving around. It is better when she is at rest. She is currently rated the pain as an 8/10. She feels that this is exactly like when she has had kidney stones before. No weakness or dizziness. She has been taking liquids okay. She states that she try to go to work today but the pain was too severe and that prompted her to come from work to the emergency department for evaluation. There are no other associated signs or symptoms. There are no other modifying factors. Onset: Today (2 AM) Duration: Getting Worse Location: Reports: Abdomen, Back Quality: Reports: Ache, Sharp Severity: Moderate (to severe.) Improves with: Reports: Rest Worsens with: Reports: Other (Walking.), Movement Context: Reports: Other (As above.) Associated Symptoms: Reports: No Other Symptoms (Except as above.) Treatments LEARNING AND DEVELOPMENT INTERN: Reports: Other (see below) (Nothing.) Right Lower Flank Pain Score (Numeric/FACES): 8 - Related Data Allergies Allergy/AdvReac Type Severity Reaction Status Date / Time diclofenac Allergy Wheezing Verified 05/01/21 13:43 fluconazole Allergy Wheezing Verified 05/01/21 13:43 propoxyphene Allergy Wheezing Verified 05/01/21 13:43 [From Darvocet-N] tramadol Allergy Shortness Verified 05/01/21 13:43 of Breath Home Meds: Home Meds FLUoxetine HCl [Prozac] 60 mg PO DAILY 03/28/21 [History] glipiZIDE [Glucotrol] 10 mg PO DAILY 03/28/21 [History] Acetaminophen/HYDROcodone [HYDROcodone-Acetaminophen 5-325 MG *] 1 - 2 tab PO Q6H PRN #8 each 05/01/21 [Rx] Mirtazapine 7.5 mg PO BEDTIME 05/01/21 [History] Ondansetron [Zofran ODT] 4 mg PO Q6H PRN #8 tab.dis 05/01/21 [Rx] buPROPion [Wellbutrin] 75 mg PO DAILY 05/01/21 [History] Past Medical History Cardiovascular History: Reports: Hypertension Gastrointestinal History: Reports: Inflammatory Bowel Disease Other Gastrointestinal History: hx ulcerative colitis, ABD PAIN Genitourinary History: Reports: Renal Calculus, UTI, Recurrent Other Genitourinary History: Kidney stones, HEMATURIA LAW REPORTER 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 Musculoskeletal History: Reports: Back Pain, Chronic Neurological History: Reports: Migraines Psychiatric History: Reports: Addiction, Anxiety, Autism, Depression, Other (See Below) Other Psychiatric History: Pain contract has been broken. Endocrine/Metabolic History: Reports: Diabetes Mellitus, Type 3c, Obesity/BMI 30+ Other Endocrine/Metabolic History: Denies taking any meds at this time, diet controlled. Dermatologic History: Reports: Other (See Below) Other Dermatologic History: States she was MRSA positive in November 2017. - Infectious Disease History Infectious Disease History: Reports: Chicken Pox, MRSA - Past Surgical History HEENT Surgical History: Reports: Adenoidectomy, Naso-Sinus Surgery, Oral Surgery, Tonsillectomy Other Respiratory Surgeries/Procedures: unable to get information as of this time GI Surgical History: Reports: Appendectomy, Cholecystectomy, Colonoscopy, Hernia Repair/Other Female Surgical History: Reports: Section, D&C, Hysterectomy Other Female Surgeries/Procedures: hysterectomy, CS x 1 Oncologic Surgical History: Reports: None Social & Family History - Caffeine Use Caffeine Use: Reports: None - Living Situation & Occupation Occupation: Employed (Works at [employer] [facility] - Review of Systems Review Of Systems: See Below Constitutional: Reports: Fever (Reported), Chills, Malaise HEENT: Denies: Throat Pain, Throat Swelling Respiratory: Denies: Shortness of Breath, Cough Cardiovascular: Denies: Chest Pain, Palpitations GI/Abdominal: Reports: Abdominal Pain : Reports: Flank Pain, Frequency, Hematuria. Denies: Dysuria Musculoskeletal: Denies: Neck Pain, Arm Pain Skin: Denies: Diaphoresis, Rash Neurological: Reports: Headache. Denies: Confusion Psychiatric: Reports: Anxiety Hematologic/Lymphatic: Denies: Easy Bleeding, Easy Bruising ED EXAM, GI/ABD - Physical Exam Exam: See Below Exam Limited By: No Limitations General Appearance: Alert, WD/WN Eyes: Bilateral: Normal Appearance, EOMI Ears: Normal External Exam, Hearing Grossly Normal Nose: Normal Inspection, Normal Mucosa Throat/Mouth: Normal Voice, No Airway Compromise, Other (Mucous membranes.) Neck: Normal Inspection, Supple, Non-Tender, Full Range of Motion Respiratory/Chest: No Respiratory Distress, Lungs Clear, No Accessory Muscle Use Cardiovascular: Normal Peripheral Pulses, Regular Rate, Rhythm GI/Abdominal Exam: Normal Bowel Sounds, Soft, No Mass, Tender (In the right CVA area, right flank and right abdomen.) (Female) Exam: Normal External Exam Back Exam: Normal Inspection, Full Range of Motion, CVA Tenderness (R) Extremities: Normal Inspection, Normal Range of Motion, Non-Tender, No Pedal Edema, Normal Capillary Refill Neurological: Alert, Oriented, CN II-XII Intact, Normal Cognition Psychiatric: Flat Affect Skin Exam: Warm, Dry, Intact, Normal Color, No Rash Course - Vital Signs Last Recorded V/S: Last Vital Signs Temp 36.4 C 05/01/21 12:44 Pulse 82 05/01/21 16:15 Resp 18 05/01/21 13:35 BP 153/102 H 05/01/21 16:15 Pulse Ox 94 L 05/01/21 12:44 - Orders/Labs/Meds Orders: Active Orders 24 hr Category Date Time Status Peripheral IV Insertion Adult [OM.PC] Routine Oth 05/01/21 13:24 Ordered Labs: Laboratory Tests 05/01/21 05/01/21 05/01/21 Range/Units 13:00 13:40 13:40 WBC 10.8 H (3.0-10.3) x10-3/uL RBC 4.76 (3.60-5.20) x10(6)uL Hgb 14.0 (11.4-15.5) g/dL Hct 42.0 (34.2-48.2) % MCV 88.3 (76.7-100.5) fL MCH 29.4 (23.9-33.9) pg MCHC 33.2 (31.9-34.8) g/dL RDW 13.0 (12.3-16.5) % Plt Count 213 (151-488) x10(3)uL MPV 8.3 (7.1-12.4) fL Neut % (Auto) 64.9 (30.8-76.2) % Lymph % (Auto) 30.0 (18.4-52.1) % Collin % (Auto) 3.8 L (4.4-15.7) % Eos % (Auto) 0.4 L (0.6-8.1) % Baso % (Auto) 0.9 (0.2-1.5) % Neut # (Auto) 7.0 H (1.5-6.3) x10-3/uL Lymph # (Auto) 3.2 (1.0-4.4) x10-3/uL Collin # (Auto) 0.4 (0.3-1.0) x10-3/uL Eos # (Auto) 0.0 (0.0-0.8) x10-3/uL Baso # (Auto) 0.1 (0.0-0.1) x10-3/uL Sodium 137 (135-145) mmol/L Potassium 3.9 (3.5-5.3) mmol/L Chloride 101 (100-110) mmol/L Carbon Dioxide 25 (21-32) mmol/L BUN 14 (7-18) mg/dL Creatinine 0.7 (0.55-1.02) mg/dL Est Cr Clr Drug Dosing 77.50 mL/min Estimated GFR (MDRD) > 60 (>60) BUN/Creatinine Ratio 20.0 (9-20) Glucose 98 (80-116) mg/dL Calcium 9.1 (8.6-10.2) mg/dL Magnesium 2.0 (1.8-2.5) mg/dL Total Bilirubin 0.2 (0.1-1.3) mg/dL AST 27 H (5-25) IU/L ALT 61 H (12-36) U/L Alkaline Phosphatase 77 (56-112) IU/L Total Protein 8.3 H (6.0-8.0) g/dL Albumin 4.2 (3.5-5.2) g/dL Globulin 4.1 g/dL Albumin/Globulin Ratio 1.0 Lipase (73-393) U/L Urine Color Yellow (YELLOW) Urine Appearance Slightly cloudy (CLEAR) Urine pH 6.0 (5.0-6.5) Ur Specific Cucumber 1.010 (1.010-1.025) Urine Protein Negative (NEGATIVE) mg/dL Urine Glucose (UA) Normal (NORMAL) mg/dL Urine Ketones Negative (NEGATIVE) mg/dL Urine Occult Blood Large H (NEGATIVE) Urine Nitrite Negative (NEGATIVE) Urine Bilirubin Negative (NEGATIVE) Urine Urobilinogen Normal (NEGATIVE) mg/dL Ur Leukocyte Esterase Negative (NEGATIVE) Urine RBC 75-100 H (0-5) Urine WBC 0-5 (0-5) Ur Squamous Epith Cells Moderate H (NS,R,O) Urine Bacteria Few H (NS) 05/01/21 Range/Units 13:40 WBC (3.0-10.3) x10-3/uL RBC (3.60-5.20) x10(6)uL Hgb (11.4-15.5) g/dL Hct (34.2-48.2) % MCV (76.7-100.5) fL MCH (23.9-33.9) pg MCHC (31.9-34.8) g/dL RDW (12.3-16.5) % Plt Count (151-488) x10(3)uL MPV (7.1-12.4) fL Neut % (Auto) (30.8-76.2) % Lymph % (Auto) (18.4-52.1) % Collin % (Auto) (4.4-15.7) % Eos % (Auto) (0.6-8.1) % Baso % (Auto) (0.2-1.5) % Neut # (Auto) (1.5-6.3) x10-3/uL Lymph # (Auto) (1.0-4.4) x10-3/uL Collin # (Auto) (0.3-1.0) x10-3/uL Eos # (Auto) (0.0-0.8) x10-3/uL Baso # (Auto) (0.0-0.1) x10-3/uL Sodium (135-145) mmol/L Potassium (3.5-5.3) mmol/L Chloride (100-110) mmol/L Carbon Dioxide (21-32) mmol/L BUN (7-18) mg/dL Creatinine (0.55-1.02) mg/dL Est Cr Clr Drug Dosing mL/min Estimated GFR (MDRD) (>60) BUN/Creatinine Ratio (9-20) Glucose (80-116) mg/dL Calcium (8.6-10.2) mg/dL Magnesium (1.8-2.5) mg/dL Total Bilirubin (0.1-1.3) mg/dL AST (5-25) IU/L ALT (12-36) U/L Alkaline Phosphatase (56-112) IU/L Total Protein (6.0-8.0) g/dL Albumin (3.5-5.2) g/dL Globulin g/dL Albumin/Globulin Ratio Lipase 164 (73-393) U/L Urine Color (YELLOW) Urine Appearance (CLEAR) Urine pH (5.0-6.5) Ur Specific Cucumber (1.010-1.025) Urine Protein (NEGATIVE) mg/dL Urine Glucose (UA) (NORMAL) mg/dL Urine Ketones (NEGATIVE) mg/dL Urine Occult Blood (NEGATIVE) Urine Nitrite (NEGATIVE) Urine Bilirubin (NEGATIVE) Urine Urobilinogen (NEGATIVE) mg/dL Ur Leukocyte Esterase (NEGATIVE) Urine RBC (0-5) Urine WBC (0-5) Ur Squamous Epith Cells (NS,R,O) Urine Bacteria (NS) Meds: Medications Discontinued Medications Generic Name Dose Route Start Last Admin Trade Name Freq PRN Reason Stop Dose Admin Hydrocodone Bitart/Acetaminophen 2 tab 05/01/21 15:33 05/01/21 15:54 Acetaminophen/Hydrocodone 325-5 Mg Tab PO 05/01/21 15:34 2 tab ONETIME ONE Administration Hydromorphone HCl 1 mg 05/01/21 14:10 05/01/21 14:14 Hydromorphone 2 Mg/Ml Sdv IVPUSH 05/01/21 14:11 1 mg ONETIME ONE Administration Sodium Chloride 1,000 mls @ 999 mls/hr 05/01/21 13:25 05/01/21 13:39 Normal Saline IV 05/01/21 14:25 999 mls/hr .BOLUS ONE Administration Ketorolac Tromethamine 30 mg 05/01/21 13:27 05/01/21 13:39 Ketorolac 30 Mg/Ml Sdv IVPUSH 05/01/21 13:28 30 mg ONETIME ONE Administration Ondansetron HCl 4 mg 05/01/21 13:27 05/01/21 13:40 Ondansetron 4 Mg/2 Ml Sdv IVPUSH 05/01/21 13:28 4 mg ONETIME ONE Administration Sodium Chloride 10 ml 05/01/21 13:24 Sodium Chloride 0.9% 10 Ml Syringe FLUSH ASDIRECTED PRN Keep Vein Open Tamsulosin HCl 0.4 mg 05/01/21 14:16 05/01/21 14:29 Tamsulosin 0.4 Mg Cap.Er PO 05/01/21 14:17 0.4 mg ONETIME ONE Administration - Re-Assessments/Exams Free Text/Narrative Re-Assessment/Exam: 05/01/21 14:05: White blood cell count is 10.8. Hemoglobin is 14 area and platelet count is normal. Sodium is 137. Potassium is 3.9. Bicarbonate is normal. Glucose is 98. BUN is 14 and creatinine is 0.7. ALT is 61 but her LFTs are otherwise normal. Urinalysis had 75 100 red cells per high powered field but there was no evidence of infection. She has received Toradol and Zofran IV. Is also receiving a normal saline. She is currently rating her pain as an 8/10 her blood pressure is still elevated in the 150/110 range. She appears to most probably have renal colic and I will give her Dilaudid 1 mg IV. The patient has had 18+ CT scans at our institution since 2012. Although these were felt to be necessary, we should also try to not perform CT scans unless they are definitely necessary. She has not required any intervention in the past when she has had kidney stones and they have passed on their own. Therefore will attempt to get her pain under control and she should be able to be discharged following this supportive and expectant therapy with straining of urine, pain medication, nausea medication and Flomax. I will give the patient Flomax 0.4 mg orally now. 05/01/21 15:00: The patient is now reporting her pain down to a 6/10. She looks much more comfortable. Her blood pressure is still elevated in the 170s over 120s range. She is having no chest pain or shortness of breath. She reports that she had a checkup about 2 weeks ago and her blood pressures were "fine". She will definitely need to follow-up with her primary provider in regard to her elevated blood pressure next week. I discussed the plan as above with having her go home to try to pass the stone at home and she is in favor and in agreement of the above plan. Precautions and reasons to return to the emergency department were discussed with the patient while she was in the emergency department and were detailed in the patient's discharge instructions. 05/01/21 15:30: She is now reporting that her pain is somewhat worse and is an 8/10 again. I will give the patient hydrocodone 5/325 still plan on discharging patient as above. Departure - Departure Time of Disposition: 16:20 Disposition: Home, Self-Care 01 Condition: Good Clinical Impression: Renal colic on right side, Elevated blood pressure reading Hematuria Qualifiers: Hematuria type: unspecified type Qualified Code(s): R31.9 - Hematuria, unspecified - Discharge Information Prescriptions: Acetaminophen/HYDROcodone [HYDROcodone-Acetaminophen 5-325 MG *] 1 - 2 tab PO Q6H PRN #8 each PRN Reason: Moderate to severe pain Ondansetron [Zofran ODT] 4 mg PO Q6H PRN #8 tab.dis PRN Reason: Nausea/Vomiting Instructions: Renal Colic, [id number], Kidney Stones, [id number], Hypertension, Adult, [id number], Hematuria, Adult Referrals: PCP,None [Primary Care Provider] - Forms: ED Department Discharge Additional Instructions: Your blood tests are reassuring. Your urine test showed evidence of blood but no evidence of infection. You appear to have a kidney stone on the right side. He d id not do a CAT scan to either confirm or Hill L because you have had multiple CAT scans in the past when you have had kidney stones in the past, you will have always been able to pass them. So for now, we would withhold doing a CAT scan because of the risk associated with it to you. You should do what you have always done in the past when you have had the stones. You should increase your fluid intake. He should strain all of your urine to see if you have passed a stone. You can use ibuprofen 600 to 800 mg by mouth every 6 hours as needed for pain. Medication as prescribed for more severe pain (hydrocodone 5/325). I have also given you a prescription of Zofran that you can use for nausea. You were given take home packs of both of these medications and prescriptions of both of these medications. Your blood pressure was also elevated throughout your emergency department visit. You will need to follow-up with your primary provider to have this rechecked. Back to the emergency department for high fever, severe weakness, worsening pain, unrelenting vomiting or any other concerning signs or symptoms. Sepsis Event Note (ED) - Focused Exam Vital Signs: Vital Signs Pulse BP 05/01/21 16:15 82 153/102 H - My Orders Last 24 Hours: My Active Orders 05/01/21 13:24 Peripheral IV Insertion Adult [OM.PC] Routine - Assessment/Plan Last 24 Hours: My Active Orders 05/01/21 13:24 Peripheral IV Insertion Adult [OM.PC] Routine
[2021-05-01] MEDS ORDERED: Sodium Chloride 0.9% 10 ML Syringe FLUSH PRN (13:24)
[2021-05-01] MEDS ORDERED: Sodium Chloride 0.9% 1,000 ML IV ONE (13:25)
[2021-05-01] MEDS ORDERED: Ketorolac 30 MG/ML SDV IVPUSH ONE (13:27)
[2021-05-01] MEDS ORDERED: Ondansetron 4 MG/2 ML SDV IVPUSH ONE (13:27)
[2021-05-01] MEDS ORDERED: HYDROmorphone 2 MG/ML SDV IVPUSH ONE (14:10)
[2021-05-01] MEDS ORDERED: Tamsulosin 0.4 MG Cap.ER PO ONE (14:16)
[2021-05-01 20:33] VITALS: BP 153/102; PULSE 82
== END 2021-05-01 16:20 | disposition home or self-care (01) ==
LOC: FB.ED 12:44
DX: N23 Unspecified renal colic (principal); R31.9 Hematuria, unspecified; I10 Essential (primary) hypertension; E13.9 Other specified diabetes mellitus without complications; E66.9 Obesity, unspecified; Z68.30 Body mass index [BMI] 30.0-30.9, adult; Z88.5 Allergy status to narcotic agent; Z88.8 Allergy status to other drugs, medicaments and biological substances
CPT/HCPCS: 36415; 80053; 81001; 83690; 83735; 85025; 96374; 96375; 99284; A9270; J1170; J1885; J2405; J7030

== ENCOUNTER 2021-05-09 13:07 | Emergency (ER) | payer MEDICAID ==
--- NOTE | 2021-05-09 14:24 | EDM.PDOC ---
ED HPI GENERAL MEDICAL PROBLEM - General Chief Complaint: Flank Pain Stated Complaint: HEADACHE,KIDNEY STONE Time Seen by Provider: 05/09/21 13:45 Source of Information: Reports: Patient - History of Present Illness INITIAL COMMENTS - FREE TEXT/NARRATIVE: 41-year-old lady came to the emergency department due to right flank and lower right abdominal pain. This is an acute on chronic problem. The patient has been seen many many times for similar complaints. She has been diagnosed with colitis and renal stones in the past. She has had several abdominal surgeries including cholecystectomy, hysterectomy, appendectomy. She was seen in the emergency department early this week and had follow-up with her primary care physician. She came to the emergency department today because of fever. She does not have upper respiratory symptoms. She does have some dysuria and possibly some hematuria. She also has some diarrhea and abdominal pain. left flank Pain Score (Numeric/FACES): 8 - Related Data Allergies Allergy/AdvReac Type Severity Reaction Status Date / Time diclofenac Allergy Wheezing Verified 05/01/21 13:43 fluconazole Allergy Wheezing Verified 05/01/21 13:43 propoxyphene Allergy Wheezing Verified 05/01/21 13:43 [From Darvocet-N] tramadol Allergy Shortness Verified 05/01/21 13:43 of Breath Home Meds: Home Meds FLUoxetine HCl [Prozac] 60 mg PO DAILY 03/28/21 [History] glipiZIDE [Glucotrol] 10 mg PO DAILY 03/28/21 [History] Acetaminophen/HYDROcodone [HYDROcodone-Acetaminophen 5-325 MG *] 1 - 2 tab PO Q6H PRN #8 each 05/01/21 [Rx] Mirtazapine 7.5 mg PO BEDTIME 05/01/21 [History] Ondansetron [Zofran ODT] 4 mg PO Q6H PRN #8 tab.dis 05/01/21 [Rx] buPROPion [Wellbutrin] 75 mg PO DAILY 05/01/21 [History] Past Medical History HEENT History: Reports: None Cardiovascular History: Reports: Hypertension Respiratory History: Reports: Other (See Below) Other Respiratory History: on and off smoker. 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 Musculoskeletal History: Reports: Back Pain, Chronic Neurological History: Reports: Migraines Psychiatric History: Reports: Addiction, Anxiety, Autism, Depression, Other (See Below) Other Psychiatric History: Pain contract has been broken. Endocrine/Metabolic History: Reports: Diabetes Mellitus, Type 3c, Obesity/BMI 30+ Other Endocrine/Metabolic History: Denies taking any meds at this time, diet controlled. Hematologic History: Reports: None Immunologic History: Reports: None Oncologic (Cancer) History: Reports: None Dermatologic History: Reports: Other (See Below) Other Dermatologic History: States she was MRSA positive in November 2017. - Infectious Disease History Infectious Disease History: Reports: Chicken Pox, MRSA - Past Surgical History Head Surgeries/Procedures: Reports: None HEENT Surgical History: Reports: Adenoidectomy, Naso-Sinus Surgery, Oral Surgery, Tonsillectomy Cardiovascular Surgical History: Reports: None Other Respiratory Surgeries/Procedures: unable to get information as of this time GI Surgical History: Reports: Appendectomy, Cholecystectomy, Colonoscopy, Hernia Repair/Other Female Surgical History: Reports: Section, D&C, Hysterectomy Other Female Surgeries/Procedures: hysterectomy, CS x 1 Endocrine Surgical History: Reports: None Oncologic Surgical History: Reports: None Social & Family History - Family History Family Medical History: No Pertinent Family History - Tobacco Use Tobacco Use Status *Q: Former Tobacco User Used Tobacco, but Quit: Yes Month/Year Tobacco Last Used: 2018 - Caffeine Use Caffeine Use: Reports: Coffee - Living Situation & Occupation Occupation: Employed (Works at [employer] - Review of Systems Review Of Systems: See Below Constitutional: Reports: Malaise HEENT: Reports: No Symptoms Respiratory: Reports: No Symptoms Cardiovascular: Reports: No Symptoms Endocrine: Reports: No Symptoms GI/Abdominal: Reports: Abdominal Pain, Diarrhea, Decreased Appetite, Nausea : Reports: Dysuria, Hematuria Musculoskeletal: Reports: No Symptoms Skin: Reports: No Symptoms Neurological: Reports: No Symptoms Psychiatric: Reports: No Symptoms Hematologic/Lymphatic: Reports: No Symptoms Immunologic: Reports: No Symptoms ED EXAM, GI/ABD - Physical Exam Exam: See Below Exam Limited By: No Limitations General Appearance: Alert, Anxious, Mild Distress Eyes: Bilateral: EOMI Head: Atraumatic, Normocephalic Neck: Normal Inspection Respiratory/Chest: No Respiratory Distress, Lungs Clear Cardiovascular: Regular Rate, Rhythm GI/Abdominal Exam: Normal Bowel Sounds, Tender. No: Guarding, Rigid Back Exam: CVA Tenderness (R) Extremities: Normal Inspection Neurological: Alert, Oriented, CN II-XII Intact, Normal Cognition, Normal Gait Psychiatric: Anxious Skin Exam: Warm, Dry Course - Vital Signs Text/Narrative:: Review of CT shows no acute abnormalities and no indication for patient's abdominal pain. I suspect adhesions due to multiple prior surgeries including cholecystectomy, appendectomy, hysterectomy. Last Recorded V/S: Last Vital Signs Temp 36.7 C 05/09/21 13:07 Pulse 92 05/09/21 13:07 Resp 18 05/09/21 13:07 BP 140/83 05/09/21 13:07 Pulse Ox 98 05/09/21 13:07 - Orders/Labs/Meds Orders: Active Orders 24 hr Category Date Time Status Abdomen Pelvis w wo Cont [CT] Stat Exams 05/09/21 15:08 Taken Labs: Laboratory Tests 05/09/21 05/09/21 05/09/21 Range/Units 14:08 14:26 14:26 WBC 8.4 (3.0-10.3) x10-3/uL RBC 4.49 (3.60-5.20) x10(6)uL Hgb 13.0 (11.4-15.5) g/dL Hct 40.0 (34.2-48.2) % MCV 88.9 (76.7-100.5) fL MCH 28.9 (23.9-33.9) pg MCHC 32.5 (31.9-34.8) g/dL RDW 13.2 (12.3-16.5) % Plt Count 234 (151-488) x10(3)uL MPV 8.1 (7.1-12.4) fL Neut % (Auto) 60.2 (30.8-76.2) % Lymph % (Auto) 32.3 (18.4-52.1) % Door % (Auto) 6.3 (4.4-15.7) % Eos % (Auto) 0.6 (0.6-8.1) % Baso % (Auto) 0.6 (0.2-1.5) % Neut # (Auto) 5.1 (1.5-6.3) x10-3/uL Lymph # (Auto) 2.7 (1.0-4.4) x10-3/uL Door # (Auto) 0.5 (0.3-1.0) x10-3/uL Eos # (Auto) 0.0 (0.0-0.8) x10-3/uL Baso # (Auto) 0.0 (0.0-0.1) x10-3/uL Sodium 140 (135-145) mmol/L Potassium 3.8 (3.5-5.3) mmol/L Chloride 102 (100-110) mmol/L Carbon Dioxide 26 (21-32) mmol/L BUN 14 (7-18) mg/dL Creatinine 0.8 (0.55-1.02) mg/dL Est Cr Clr Drug Dosing 67.81 mL/min Estimated GFR (MDRD) > 60 (>60) BUN/Creatinine Ratio 17.5 (9-20) Glucose 83 (80-116) mg/dL Calcium 9.1 (8.6-10.2) mg/dL Total Bilirubin 0.2 (0.1-1.3) mg/dL AST 19 D (5-25) IU/L ALT 45 H D (12-36) U/L Alkaline Phosphatase 81 (56-112) IU/L Total Protein 8.1 H (6.0-8.0) g/dL Albumin 4.0 (3.5-5.2) g/dL Globulin 4.1 g/dL Albumin/Globulin Ratio 1.0 Urine Color Yellow (YELLOW) Urine Appearance Clear (CLEAR) Urine pH 6.5 (5.0-6.5) Ur Specific Point 1.015 (1.010-1.025) Urine Protein Negative (NEGATIVE) mg/dL Urine Glucose (UA) Normal (NORMAL) mg/dL Urine Ketones Negative (NEGATIVE) mg/dL Urine Occult Blood Moderate H (NEGATIVE) Urine Nitrite Negative (NEGATIVE) Urine Bilirubin Negative (NEGATIVE) Urine Urobilinogen Normal (NEGATIVE) mg/dL Ur Leukocyte Esterase Negative (NEGATIVE) Urine RBC 5-10 H (0-5) Urine WBC 0-5 (0-5) Ur Squamous Epith Cells Few H (NS,R,O) Urine Bacteria Few H (NS) Meds: Medications Discontinued Medications Generic Name Dose Route Start Last Admin Trade Name Antonia PRN Reason Stop Dose Admin Hydrocodone Bitart/Acetaminophen 1 tab 05/09/21 15:07 05/09/21 15:46 Acetaminophen/Hydrocodone 325-5 Mg Tab PO 05/09/21 15:08 1 tab ONETIME ONE Administration Iopamidol 100 ml 05/09/21 15:16 05/09/21 15:43 Iopamidol 755 Mg/Ml 100 Ml Bottle IV 05/09/21 15:17 100 ml . DIRECTED ONE Administration Ondansetron HCl 4 mg 05/09/21 15:08 05/09/21 15:46 Ondansetron 4 Mg Tab.Dis PO 05/09/21 15:09 4 mg ONETIME ONE Administration Departure - Departure Time of Disposition: 17:15 Disposition: Home, Self-Care 01 Condition: Fair Clinical Impression: Intra-abdominal adhesions - Discharge Information *PRESCRIPTION DRUG MONITORING PROGRAM REVIEWED*: Not Applicable *COPY OF PRESCRIPTION DRUG MONITORING REPORT IN PATIENT PAULA: Not Applicable Instructions: Adhesions, [id number] Referrals: PCP,None [Primary Care Provider] - Forms: ED Department Discharge Additional Instructions: CT ruled out renal stones. Patient advised that she likely has intra-abdominal adhesions. Information given. Patient strongly encouraged to follow-up with primary care physician and with surgery. Sepsis Event Note (ED) - Evaluation Sepsis Screening Result: No Definite Risk - Focused Exam Vital Signs: Vital Signs Temp Pulse Resp BP Pulse Ox 05/09/21 13:07 36.7 C 92 18 140/83 98 - My Orders Last 24 Hours: My Active Orders 05/09/21 15:08 Abdomen Pelvis w wo Cont [CT] Stat - Assessment/Plan Last 24 Hours: My Active Orders 05/09/21 15:08 Abdomen Pelvis w wo Cont [CT] Stat
[2021-05-09] MEDS ORDERED: Acetaminophen/HYDROcodone 325-5 MG Tab PO ONE (15:07)
[2021-05-09] MEDS ORDERED: Ondansetron 4 MG Tab.DIS PO ONE (15:08)
[2021-05-09] MEDS ORDERED: Iopamidol 755 Mg/ML 100 ML Bottle IV ONE (15:16)
[2021-05-09 18:29] VITALS: BP 132/86; PULSE 82
== END 2021-05-09 17:30 | disposition home or self-care (01) ==
LOC: FB.ED 13:07
DX: K66.0 Peritoneal adhesions (postprocedural) (postinfection) (principal); I10 Essential (primary) hypertension; E11.9 Type 2 diabetes mellitus without complications; E66.9 Obesity, unspecified; Z68.34 Body mass index [BMI] 34.0-34.9, adult; Z87.891 Personal history of nicotine dependence; Z88.8 Allergy status to other drugs, medicaments and biological substances; Z88.5 Allergy status to narcotic agent; Z79.84 Long term (current) use of oral hypoglycemic drugs; Z79.899 Other long term (current) drug therapy
CPT/HCPCS: 36415; 74178; 80053; 81001; 85025; 99284; A9270; Q9967

== ENCOUNTER 2021-05-18 16:36 | Emergency (ER) | payer MEDICAID ==
[2021-05-18] MEDS ORDERED: Ondansetron 4 MG/2 ML SDV IVPUSH STA (17:22)
[2021-05-18] MEDS ORDERED: Morphine 4 MG/ML VIAL IVPUSH STA (17:22)
[2021-05-18] MEDS ORDERED: Sodium Chloride 0.9% 1,000 ML IV SCH (17:30)
[2021-05-18] MEDS ORDERED: predniSONE 20 MG Tab PO STA (18:36)
[2021-05-18] MEDS ORDERED: Acetaminophen/oxyCODONE 325-5 MG Tab PO STA (18:36)
--- NOTE | 2021-05-18 18:39 | EDM.PDOC ---
ED HPI GENERAL MEDICAL PROBLEM - General Stated Complaint: ABDOMINAL PAIN Time Seen by Provider: 05/18/21 16:50 Source of Information: Reports: Patient History Limitations: Reports: No Limitations - History of Present Illness INITIAL COMMENTS - FREE TEXT/NARRATIVE: Patient presented to the ED because of abdominal pain over the LLQ,01/29 which started 2 days ago. She also has mucoid and bloody stools. She vomited 4 times. She apparently has low grade fever but no cough or cold. - Related Data Allergies Allergy/AdvReac Type Severity Reaction Status Date / Time diclofenac Allergy Wheezing Verified 05/01/21 13:43 fluconazole Allergy Wheezing Verified 05/01/21 13:43 propoxyphene Allergy Wheezing Verified 05/01/21 13:43 [From Darvocet-N] tramadol Allergy Shortness Verified 05/01/21 13:43 of Breath Home Meds: Home Meds FLUoxetine HCl [Prozac] 60 mg PO DAILY 03/28/21 [History] glipiZIDE [Glucotrol] 10 mg PO DAILY 03/28/21 [History] Acetaminophen/HYDROcodone [HYDROcodone-Acetaminophen 5-325 MG *] 1 - 2 tab PO Q6H PRN #8 each 05/01/21 [Rx] Mirtazapine 7.5 mg PO BEDTIME 05/01/21 [History] Ondansetron [Zofran ODT] 4 mg PO Q6H PRN #8 tab.dis 05/01/21 [Rx] buPROPion [Wellbutrin] 75 mg PO DAILY 05/01/21 [History] Ondansetron [Zofran ODT] 4 mg PO Q6H PRN #7 tab.dis 05/18/21 [Rx] predniSONE [Prednisone] 40 mg PO DAILY #20 tablet 05/18/21 [Rx] Past Medical History HEENT History: Reports: None Cardiovascular History: Reports: Hypertension Respiratory History: Reports: Other (See Below) Other Respiratory History: on and off smoker. 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 Musculoskeletal History: Reports: Back Pain, Chronic Neurological History: Reports: Migraines Psychiatric History: Reports: Addiction, Anxiety, Autism, Depression, Other (See Below) Other Psychiatric History: Pain contract has been broken. Endocrine/Metabolic History: Reports: Diabetes Mellitus, Type 3c, Obesity/BMI 30+ Other Endocrine/Metabolic History: Denies taking any meds at this time, diet controlled. Hematologic History: Reports: None Immunologic History: Reports: None Oncologic (Cancer) History: Reports: None Dermatologic History: Reports: Other (See Below) Other Dermatologic History: States she was MRSA positive in November 2017. - Infectious Disease History Infectious Disease History: Reports: Chicken Pox, MRSA - Past Surgical History Head Surgeries/Procedures: Reports: None HEENT Surgical History: Reports: Adenoidectomy, Naso-Sinus Surgery, Oral Surgery, Tonsillectomy Cardiovascular Surgical History: Reports: None Other Respiratory Surgeries/Procedures: unable to get information as of this time GI Surgical History: Reports: Appendectomy, Cholecystectomy, Colonoscopy, Hernia Repair/Other Female Surgical History: Reports: Section, D&C, Hysterectomy Other Female Surgeries/Procedures: hysterectomy, CS x 1 Endocrine Surgical History: Reports: None Oncologic Surgical History: Reports: None Social & Family History - Family History Family Medical History: No Pertinent Family History - Caffeine Use Caffeine Use: Reports: Soda - Living Situation & Occupation Occupation: Employed (Works at [employer] ED ROS GENERAL - Review of Systems Review Of Systems: See Below Constitutional: Reports: No Symptoms HEENT: Reports: No Symptoms Respiratory: Reports: No Symptoms Cardiovascular: Reports: No Symptoms Endocrine: Reports: No Symptoms GI/Abdominal: Reports: Abdominal Pain, Bloody Stool, Mucous in Stool : Reports: No Symptoms Musculoskeletal: Reports: No Symptoms Skin: Reports: No Symptoms Neurological: Reports: No Symptoms Psychiatric: Reports: No Symptoms Hematologic/Lymphatic: Reports: No Symptoms ED EXAM, GI/ABD - Physical Exam Exam: See Below Exam Limited By: No Limitations General Appearance: Alert, No Apparent Distress Ears: Normal External Exam, Normal Canal, Hearing Grossly Normal, Normal TMs Nose: Normal Inspection, Normal Mucosa, No Blood Throat/Mouth: Normal Inspection, Normal Lips, Normal Teeth, Normal Gums, Normal Oropharynx, Normal Voice Head: Atraumatic, Normocephalic Neck: Normal Inspection, Supple, Non-Tender, Full Range of Motion Respiratory/Chest: No Respiratory Distress, Lungs Clear, Normal Breath Sounds, No Accessory Muscle Use, Chest Non-Tender Cardiovascular: Normal Peripheral Pulses, Regular Rate, Rhythm, No Edema, No Gallop, No JVD, No Murmur, No Rub GI/Abdominal Exam: Normal Bowel Sounds, Soft, No Organomegaly, No Distention, No Abnormal Bruit, Other (LLQ tenderness) Back Exam: Normal Inspection, Full Range of Motion Extremities: Normal Inspection, Normal Range of Motion, Non-Tender, No Pedal Edema, Normal Capillary Refill Neurological: Alert, Oriented, CN II-XII Intact, Normal Cognition, Normal Gait, Normal Reflexes, No Motor/Sensory Deficits Psychiatric: Normal Affect Course - Vital Signs Text/Narrative:: Lab result was reviewed and discussed with patient Refused CT abd pelvis she said she just had 1 recently Percocet 10 mg PO x1 Morphine 4 mg IV x1 Zofran 4 mg IV x1 Labetalol 20 mg IV x1 NS 1 L bolus Prednisone 40 mg PO x1 Last Recorded V/S: Last Vital Signs Temp 37.1 C 05/18/21 16:45 Pulse 68 05/18/21 19:45 Resp 18 05/18/21 19:45 BP 148/85 H 05/18/21 19:45 Pulse Ox 98 05/18/21 19:15 - Orders/Labs/Meds Labs: Laboratory Tests 05/18/21 05/18/21 05/18/21 Range/Units 17:30 17:30 17:30 WBC 11.6 H (3.0-10.3) x10-3/uL RBC 4.94 (3.60-5.20) x10(6)uL Hgb 14.7 (11.4-15.5) g/dL Hct 43.6 (34.2-48.2) % MCV 88.3 (76.7-100.5) fL MCH 29.7 (23.9-33.9) pg MCHC 33.7 (31.9-34.8) g/dL RDW 12.7 (12.3-16.5) % Plt Count 268 (151-488) x10(3)uL MPV 7.9 (7.1-12.4) fL Neut % (Auto) 69.7 (30.8-76.2) % Lymph % (Auto) 23.9 (18.4-52.1) % [place] % (Auto) 5.0 (4.4-15.7) % Eos % (Auto) 0.6 (0.6-8.1) % Baso % (Auto) 0.8 (0.2-1.5) % Neut # (Auto) 8.1 H (1.5-6.3) x10-3/uL Lymph # (Auto) 2.8 (1.0-4.4) x10-3/uL [place] # (Auto) 0.6 (0.3-1.0) x10-3/uL Eos # (Auto) 0.1 (0.0-0.8) x10-3/uL Baso # (Auto) 0.1 (0.0-0.1) x10-3/uL Sodium 139 (135-145) mmol/L Potassium 3.8 (3.5-5.3) mmol/L Chloride 102 (100-110) mmol/L Carbon Dioxide 22 (21-32) mmol/L BUN 20 H (7-18) mg/dL Creatinine 0.8 (0.55-1.02) mg/dL Est Cr Clr Drug Dosing TNP Estimated GFR (MDRD) > 60 (>60) BUN/Creatinine Ratio 25.0 H (9-20) Glucose 104 (80-116) mg/dL Calcium 9.7 (8.6-10.2) mg/dL Total Bilirubin 0.2 (0.1-1.3) mg/dL AST 24 D (5-25) IU/L ALT 48 H (12-36) U/L Alkaline Phosphatase 99 (56-112) IU/L Total Protein 9.0 H (6.0-8.0) g/dL Albumin 4.2 (3.5-5.2) g/dL Globulin 4.8 g/dL Albumin/Globulin Ratio 0.9 Amylase 64 (25-115) U/L Lipase 178 (73-393) U/L Urine Color (YELLOW) Urine Appearance (CLEAR) Urine pH (5.0-6.5) Ur Specific [place] (1.010-1.025) Urine Protein (NEGATIVE) mg/dL Urine Glucose (UA) (NORMAL) mg/dL Urine Ketones (NEGATIVE) mg/dL Urine Occult Blood (NEGATIVE) Urine Nitrite (NEGATIVE) Urine Bilirubin (NEGATIVE) Urine Urobilinogen (NEGATIVE) mg/dL Ur Leukocyte Esterase (NEGATIVE) Urine RBC (0-5) Urine WBC (0-5) Ur Squamous Epith Cells (NS,R,O) Urine Bacteria (NS) 05/18/21 Range/Units 17:45 WBC (3.0-10.3) x10-3/uL RBC (3.60-5.20) x10(6)uL Hgb (11.4-15.5) g/dL Hct (34.2-48.2) % MCV (76.7-100.5) fL MCH (23.9-33.9) pg MCHC (31.9-34.8) g/dL RDW (12.3-16.5) % Plt Count (151-488) x10(3)uL MPV (7.1-12.4) fL Neut % (Auto) (30.8-76.2) % Lymph % (Auto) (18.4-52.1) % [place] % (Auto) (4.4-15.7) % Eos % (Auto) (0.6-8.1) % Baso % (Auto) (0.2-1.5) % Neut # (Auto) (1.5-6.3) x10-3/uL Lymph # (Auto) (1.0-4.4) x10-3/uL [place] # (Auto) (0.3-1.0) x10-3/uL Eos # (Auto) (0.0-0.8) x10-3/uL Baso # (Auto) (0.0-0.1) x10-3/uL Sodium (135-145) mmol/L Potassium (3.5-5.3) mmol/L Chloride (100-110) mmol/L Carbon Dioxide (21-32) mmol/L BUN (7-18) mg/dL Creatinine (0.55-1.02) mg/dL Est Cr Clr Drug Dosing Estimated GFR (MDRD) (>60) BUN/Creatinine Ratio (9-20) Glucose (80-116) mg/dL Calcium (8.6-10.2) mg/dL Total Bilirubin (0.1-1.3) mg/dL AST (5-25) IU/L ALT (12-36) U/L Alkaline Phosphatase (56-112) IU/L Total Protein (6.0-8.0) g/dL Albumin (3.5-5.2) g/dL Globulin g/dL Albumin/Globulin Ratio Amylase (25-115) U/L Lipase (73-393) U/L Urine Color Yellow (YELLOW) Urine Appearance Clear (CLEAR) Urine pH 5.0 (5.0-6.5) Ur Specific [place] 1.020 (1.010-1.025) Urine Protein Negative (NEGATIVE) mg/dL Urine Glucose (UA) Normal (NORMAL) mg/dL Urine Ketones Negative (NEGATIVE) mg/dL Urine Occult Blood Moderate H (NEGATIVE) Urine Nitrite Negative (NEGATIVE) Urine Bilirubin Negative (NEGATIVE) Urine Urobilinogen Normal (NEGATIVE) mg/dL Ur Leukocyte Esterase Negative (NEGATIVE) Urine RBC 5-10 H (0-5) Urine WBC 0-5 (0-5) Ur Squamous Epith Cells Few H (NS,R,O) Urine Bacteria Few H (NS) Meds: Medications Discontinued Medications Generic Name Dose Route Start Last Admin Trade Name Antonia PRN Reason Stop Dose Admin Sodium Chloride 1,000 mls @ 999 mls/hr 05/18/21 17:30 05/18/21 18:02 Normal Saline IV 999 mls/hr ASDIRECTED LYNETTE Administration Labetalol HCl 20 mg 05/18/21 19:08 05/18/21 19:19 Labetalol 20 Mg/4 Ml Syringe IVPUSH 05/18/21 19:09 20 mg NOW STA Administration Protocol Morphine Sulfate 4 mg 05/18/21 17:22 05/18/21 18:03 Morphine 4 Mg/Ml Vial IVPUSH 05/18/21 17:23 4 mg NOW STA Administration Ondansetron HCl 4 mg 05/18/21 17:22 05/18/21 18:03 Ondansetron 4 Mg/2 Ml Sdv IVPUSH 05/18/21 17:23 4 mg NOW STA Administration Oxycodone/Acetaminophen 2 tab 05/18/21 18:36 05/18/21 18:44 Acetaminophen/Oxycodone 325-5 Mg Tab PO 05/18/21 18:37 2 tab NOW STA Administration Prednisone 40 mg 05/18/21 18:36 05/18/21 18:44 Prednisone 20 Mg Tab PO 05/18/21 18:37 40 mg NOW STA Administration Departure - Departure Time of Disposition: 19:00 Disposition: Home, Self-Care 01 Condition: Good Clinical Impression: Ulcerative colitis, HTN (hypertension) - Discharge Information Prescriptions: predniSONE [Prednisone] 40 mg PO DAILY #20 tablet Ondansetron [Zofran ODT] 4 mg PO Q6H PRN #7 tab.dis PRN Reason: Nausea Instructions: Ulcerative Colitis, Adult Referrals: PCP,None [Primary Care Provider] - Forms: ED Department Discharge Additional Instructions: Please read discharge instructions on Ulcerative Colitis flare up Take prednisone 40 mg daily for 10 days Zofran ODT 4 mg every 6 hours as needed for nausea Call your outside sales representative this week Sepsis Event Note (ED) - Evaluation Sepsis Screening Result: No Definite Risk
[2021-05-18] MEDS ORDERED: Labetalol 20 MG/4 ML Syringe IVPUSH STA (19:08)
[2021-05-18 20:23] VITALS: BP 148/85; PULSE 68
== END 2021-05-18 20:00 | disposition home or self-care (01) ==
LOC: FB.ED 16:36
DX: K51.90 Ulcerative colitis, unspecified, without complications (principal); I10 Essential (primary) hypertension; Z88.5 Allergy status to narcotic agent; Z88.8 Allergy status to other drugs, medicaments and biological substances
CPT/HCPCS: 36415; 80053; 81001; 82150; 83690; 85025; 96374; 96375; 99284; A9270; J2270; J2405; J3490; J7030; J7512

== ENCOUNTER 2021-05-29 18:27 | Emergency (ER) | payer SELFPAY ==
[2021-05-29] MEDS ORDERED: Tamsulosin 0.4 MG Cap.ER PO ONE ×3 (18:28→21:10)
[2021-05-29 19:09] VITALS: BP 144/96; PULSE 93
--- NOTE | 2021-05-29 19:20 | EDM.PDOC ---
ED HPI GENERAL MEDICAL PROBLEM - General Chief Complaint: Gastrointestinal Problem Stated Complaint: COLITIS Time Seen by Provider: 05/29/21 19:00 Source of Information: Reports: Patient - History of Present Illness INITIAL COMMENTS - FREE TEXT/NARRATIVE: 41-year-old lady with past medical history significant for Crohn's colitis states that she came to the emergency department after leaving work early due to rectal bleeding. She states she has had very very similar symptoms in the past when she was having a Crohn's flare and believes she is having a Crohn's flare at this time. She is not having chest pain or shortness of breath. She is having some nausea, abdominal pain, rectal bleeding, fever/chills, weakness, and left flank pain. She is also having left lower quadrant pain. Abdominal Pain Score (Numeric/FACES): 8 - Related Data Allergies Allergy/AdvReac Type Severity Reaction Status Date / Time diclofenac Allergy Wheezing Verified 05/29/21 18:50 fluconazole Allergy Wheezing Verified 05/29/21 18:50 propoxyphene Allergy Wheezing Verified 05/29/21 18:50 [From Darvocet-N] tramadol Allergy Shortness Verified 05/29/21 18:50 of Breath Home Meds: Home Meds Tamsulosin [Flomax] 0.4 mg PO DAILY #30 cap.er 05/29/21 [Rx] Past Medical History HEENT History: Reports: None Cardiovascular History: Reports: Hypertension Respiratory History: Reports: Other (See Below) Other Respiratory History: on and off smoker. 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 Musculoskeletal History: Reports: Back Pain, Chronic Neurological History: Reports: Migraines Psychiatric History: Reports: Addiction, Anxiety, Autism, Depression, Other (See Below) Other Psychiatric History: Pain contract has been broken. Endocrine/Metabolic History: Reports: Diabetes Mellitus, Type 3c, Obesity/BMI 30+ Other Endocrine/Metabolic History: Denies taking any meds at this time, diet controlled. Hematologic History: Reports: None Immunologic History: Reports: None Oncologic (Cancer) History: Reports: None Dermatologic History: Reports: Other (See Below) Other Dermatologic History: States she was MRSA positive in November 2017. - Infectious Disease History Infectious Disease History: Reports: Chicken Pox, MRSA - Past Surgical History Head Surgeries/Procedures: Reports: None HEENT Surgical History: Reports: Adenoidectomy, Naso-Sinus Surgery, Oral Surgery, Tonsillectomy Cardiovascular Surgical History: Reports: None Other Respiratory Surgeries/Procedures: unable to get information as of this time GI Surgical History: Reports: Appendectomy, Cholecystectomy, Colonoscopy, Hernia Repair/Other Female Surgical History: Reports: Section, D&C, Hysterectomy Other Female Surgeries/Procedures: hysterectomy, CS x 1 Endocrine Surgical History: Reports: None Oncologic Surgical History: Reports: None Social & Family History - Family History Family Medical History: No Pertinent Family History - Tobacco Use Tobacco Use Status *Q: Unknown Ever Used Tobacco Second Hand Smoke Exposure: No - Caffeine Use Caffeine Use: Reports: Coffee, Soda, Tea - Recreational Drug Use Recreational Drug Use: No - Living Situation & Occupation Occupation: Employed (Works at [employer] ED ROS GENERAL - Review of Systems Review Of Systems: See Below Constitutional: Reports: Fever, Chills, Weakness HEENT: Reports: No Symptoms Respiratory: Reports: No Symptoms Cardiovascular: Reports: No Symptoms Endocrine: Reports: No Symptoms GI/Abdominal: Reports: Abdominal Pain, Bloody Stool, Nausea : Reports: Flank Pain Musculoskeletal: Reports: No Symptoms Skin: Reports: No Symptoms Neurological: Reports: No Symptoms Psychiatric: Reports: No Symptoms Hematologic/Lymphatic: Reports: No Symptoms Immunologic: Reports: No Symptoms ED EXAM, GI/ABD - Physical Exam Exam: See Below Exam Limited By: No Limitations General Appearance: Alert, No Apparent Distress Eyes: Bilateral: EOMI Head: Atraumatic, Normocephalic Neck: Normal Inspection Respiratory/Chest: No Respiratory Distress, Lungs Clear Cardiovascular: Normal Peripheral Pulses, Regular Rate, Rhythm GI/Abdominal Exam: Normal Bowel Sounds, Tender Back Exam: CVA Tenderness (L) Extremities: Normal Inspection Neurological: Alert, Oriented, CN II-XII Intact, Normal Cognition, Normal Gait Psychiatric: Normal Affect, Normal Mood Skin Exam: Warm, Dry, Intact Course - Vital Signs Text/Narrative:: Review of labs is very suspicious for renal stone. Patient had left flank pain, intermittent left flank and left lower quadrant pain partially relieved with Toradol. She has a history of renal stones. She has gross hematuria in her urine. C-reactive protein is normal. However, there is a mildly elevated white blood cell count. I discussed with the patient possible treatments. She elected to be treated for renal stones at this time. Last Recorded V/S: Last Vital Signs Temp 36.4 C 05/29/21 18:40 Pulse 93 05/29/21 18:40 Resp 18 05/29/21 18:40 BP 144/96 H 05/29/21 18:40 Pulse Ox 96 05/29/21 18:40 - Orders/Labs/Meds Orders: Active Orders 24 hr Category Date Time Status OCCULT BLOOD DIAGNOSTIC [OP] Stat Lab 05/29/21 19:15 Ordered Labs: Laboratory Tests 05/29/21 05/29/21 05/29/21 Range/Units 19:16 19:30 19:30 WBC 11.8 H (3.0-10.3) x10-3/uL RBC 4.59 (3.60-5.20) x10(6)uL Hgb 13.4 (11.4-15.5) g/dL Hct 40.3 (34.2-48.2) % MCV 87.8 (76.7-100.5) fL MCH 29.2 (23.9-33.9) pg MCHC 33.2 (31.9-34.8) g/dL RDW 12.9 (12.3-16.5) % Plt Count 262 (151-488) x10(3)uL MPV 8.6 (7.1-12.4) fL Neut % (Auto) 70.2 (30.8-76.2) % Lymph % (Auto) 26.5 (18.4-52.1) % [place] % (Auto) 2.8 L (4.4-15.7) % Eos % (Auto) 0.0 L (0.6-8.1) % Baso % (Auto) 0.5 (0.2-1.5) % Neut # (Auto) 8.3 H (1.5-6.3) x10-3/uL Lymph # (Auto) 3.1 (1.0-4.4) x10-3/uL [place] # (Auto) 0.3 (0.3-1.0) x10-3/uL Eos # (Auto) 0.0 (0.0-0.8) x10-3/uL Baso # (Auto) 0.1 (0.0-0.1) x10-3/uL Sodium 139 (135-145) mmol/L Potassium 4.0 (3.5-5.3) mmol/L Chloride 101 (100-110) mmol/L Carbon Dioxide 26 (21-32) mmol/L BUN 22 H (7-18) mg/dL Creatinine 0.8 (0.55-1.02) mg/dL Est Cr Clr Drug Dosing 67.81 mL/min Estimated GFR (MDRD) > 60 (>60) BUN/Creatinine Ratio 27.5 H (9-20) Glucose 94 (80-116) mg/dL Calcium 9.4 (8.6-10.2) mg/dL Total Bilirubin 0.2 (0.1-1.3) mg/dL AST 25 (5-25) IU/L ALT 55 H D (12-36) U/L Alkaline Phosphatase 80 (56-112) IU/L C-Reactive Protein (0.5-0.9) mg/dL Total Protein 8.7 H (6.0-8.0) g/dL Albumin 4.5 (3.5-5.2) g/dL Globulin 4.2 g/dL Albumin/Globulin Ratio 1.1 Urine Color Yellow (YELLOW) Urine Appearance Clear (CLEAR) Urine pH 6.0 (5.0-6.5) Ur Specific [place] 1.010 (1.010-1.025) Urine Protein Negative (NEGATIVE) mg/dL Urine Glucose (UA) Normal (NORMAL) mg/dL Urine Ketones Negative (NEGATIVE) mg/dL Urine Occult Blood Large H (NEGATIVE) Urine Nitrite Negative (NEGATIVE) Urine Bilirubin Negative (NEGATIVE) Urine Urobilinogen Normal (NEGATIVE) mg/dL Ur Leukocyte Esterase Negative (NEGATIVE) Urine RBC 10-20 H (0-5) Urine WBC 0-5 (0-5) Ur Squamous Epith Cells Few H (NS,R,O) Urine Bacteria Few H (NS) 05/29/21 Range/Units 19:30 WBC (3.0-10.3) x10-3/uL RBC (3.60-5.20) x10(6)uL Hgb (11.4-15.5) g/dL Hct (34.2-48.2) % MCV (76.7-100.5) fL MCH (23.9-33.9) pg MCHC (31.9-34.8) g/dL RDW (12.3-16.5) % Plt Count (151-488) x10(3)uL MPV (7.1-12.4) fL Neut % (Auto) (30.8-76.2) % Lymph % (Auto) (18.4-52.1) % [place] % (Auto) (4.4-15.7) % Eos % (Auto) (0.6-8.1) % Baso % (Auto) (0.2-1.5) % Neut # (Auto) (1.5-6.3) x10-3/uL Lymph # (Auto) (1.0-4.4) x10-3/uL [place] # (Auto) (0.3-1.0) x10-3/uL Eos # (Auto) (0.0-0.8) x10-3/uL Baso # (Auto) (0.0-0.1) x10-3/uL Sodium (135-145) mmol/L Potassium (3.5-5.3) mmol/L Chloride (100-110) mmol/L Carbon Dioxide (21-32) mmol/L BUN (7-18) mg/dL Creatinine (0.55-1.02) mg/dL Est Cr Clr Drug Dosing mL/min Estimated GFR (MDRD) (>60) BUN/Creatinine Ratio (9-20) Glucose (80-116) mg/dL Calcium (8.6-10.2) mg/dL Total Bilirubin (0.1-1.3) mg/dL AST (5-25) IU/L ALT (12-36) U/L Alkaline Phosphatase (56-112) IU/L C-Reactive Protein 0.8 (0.5-0.9) mg/dL Total Protein (6.0-8.0) g/dL Albumin (3.5-5.2) g/dL Globulin g/dL Albumin/Globulin Ratio Urine Color (YELLOW) Urine Appearance (CLEAR) Urine pH (5.0-6.5) Ur Specific [place] (1.010-1.025) Urine Protein (NEGATIVE) mg/dL Urine Glucose (UA) (NORMAL) mg/dL Urine Ketones (NEGATIVE) mg/dL Urine Occult Blood (NEGATIVE) Urine Nitrite (NEGATIVE) Urine Bilirubin (NEGATIVE) Urine Urobilinogen (NEGATIVE) mg/dL Ur Leukocyte Esterase (NEGATIVE) Urine RBC (0-5) Urine WBC (0-5) Ur Squamous Epith Cells (NS,R,O) Urine Bacteria (NS) Departure - Departure Time of Disposition: 21:13 Disposition: Home, Self-Care 01 Condition: Good Clinical Impression: Nephrolithiasis - Discharge Information *PRESCRIPTION DRUG MONITORING PROGRAM REVIEWED*: Not Applicable *COPY OF PRESCRIPTION DRUG MONITORING REPORT IN PATIENT PAULA: Not Applicable Instructions: Kidney Stones, [id number], Renal Colic, [id number], Dehydration, Adult, [id number] Referrals: Siobhan Lopez PA [Primary Care Provider] - Forms: ED Department Discharge Additional Instructions: Patient I discussed the fact that this may be the beginnings of a Crohn's flare but is not likely with CRP being normal. She does have a history of both Crohn's and renal stones. Patient denies use shared decision making and agreed to treat this as a renal stone. If patient does not have good relief she will follow up with her primary care physician. I encouraged her to follow-up with primary care and ensure that she is continuing to see GI/specialist for Crohn's treatment. Sepsis Event Note (ED) - Evaluation Sepsis Screening Result: No Definite Risk - Focused Exam Vital Signs: Vital Signs Temp Pulse Resp BP Pulse Ox 05/29/21 18:40 36.4 C 93 18 144/96 H 96 - My Orders Last 24 Hours: My Active Orders 05/29/21 19:15 OCCULT BLOOD DIAGNOSTIC [OP] Stat - Assessment/Plan Last 24 Hours: My Active Orders 05/29/21 19:15 OCCULT BLOOD DIAGNOSTIC [OP] Stat
[2021-05-29] MEDS ORDERED: Acetaminophen/HYDROcodone 325-5 MG Tab PO ONE (21:09)
== END 2021-05-29 21:27 | disposition home or self-care (01) ==
LOC: FB.ED 18:27
DX: N20.0 Calculus of kidney (principal); I10 Essential (primary) hypertension; E11.9 Type 2 diabetes mellitus without complications; F17.200 Nicotine dependence, unspecified, uncomplicated; E66.9 Obesity, unspecified; Z68.33 Body mass index [BMI] 33.0-33.9, adult; Z88.8 Allergy status to other drugs, medicaments and biological substances; Z88.5 Allergy status to narcotic agent
CPT/HCPCS: 36415; 80053; 81001; 85025; 86140; 99284; A9270

== ENCOUNTER 2021-06-17 15:19 | Emergency (ER) | payer MEDICAID ==
[2021-06-17] MEDS ORDERED: Sodium Chloride 0.9% 10 ML Syringe FLUSH PRN (16:15)
[2021-06-17] MEDS ORDERED: Morphine 4 MG/ML VIAL IVPUSH ONE (16:16)
[2021-06-17] MEDS ORDERED: Ondansetron 4 MG/2 ML SDV IVPUSH ONE ×2 (16:16→16:17)
[2021-06-17] MEDS ORDERED: predniSONE 10 MG Tab PO STA (16:17)
[2021-06-17] MEDS ORDERED: Sodium Chloride 0.9% 1,000 ML IV SCH (16:30)
[2021-06-17 18:06] VITALS: BP 128/83; PULSE 75
[2021-06-17] MEDS ORDERED: Acetaminophen/oxyCODONE 325-5 MG Tab PO STA (18:06)
== END 2021-06-17 18:20 | disposition home or self-care (01) ==
LOC: FB.ED 15:19
DX: K51.90 Ulcerative colitis, unspecified, without complications (principal); I10 Essential (primary) hypertension; E13.9 Other specified diabetes mellitus without complications; E66.9 Obesity, unspecified; Z87.891 Personal history of nicotine dependence; Z79.899 Other long term (current) drug therapy; Z68.34 Body mass index [BMI] 34.0-34.9, adult
CPT/HCPCS: 36415; 80053; 82150; 83690; 85025; 96374; 96375; 99284; A9270; J2270; J2405; J7030; J7512

== ENCOUNTER 2021-06-29 16:36 | Emergency (ER) | payer SELFPAY ==
[2021-06-29 17:06] VITALS: BP 95/42; PULSE 87
[2021-06-29] MEDS ORDERED: Atropine/Diphenoxylate 0.025-2.5 MG Tab PO STA (17:13)
[2021-06-29] MEDS ORDERED: Acetaminophen/HYDROcodone 325-5 MG Tab PO STA (17:13)
[2021-06-29] MEDS ORDERED: Ondansetron 4 MG Tab.DIS PO STA (17:13)
== END 2021-06-29 19:26 | disposition home or self-care (01) ==
LOC: FB.ED 16:36
DX: A08.4 Viral intestinal infection, unspecified (principal); I10 Essential (primary) hypertension; E13.9 Other specified diabetes mellitus without complications; E66.9 Obesity, unspecified; Z76.5 Malingerer [conscious simulation]; Z88.5 Allergy status to narcotic agent; Z88.8 Allergy status to other drugs, medicaments and biological substances; Z79.899 Other long term (current) drug therapy; Z68.33 Body mass index [BMI] 33.0-33.9, adult
CPT/HCPCS: 36415; 80053; 81001; 82150; 83690; 85025; 99284; A9270; Q0162

== ENCOUNTER 2021-06-30 10:34 | Emergency (ER) | payer SELFPAY ==
[2021-06-30 10:43] VITALS: BP 111/88; PULSE 84
[2021-06-30] MEDS ORDERED: Sodium Chloride 0.9% 1,000 ML IV ONE (10:47)
[2021-06-30] MEDS ORDERED: Ketorolac 30 MG/ML SDV IVPUSH ONE (10:48)
[2021-06-30] MEDS ORDERED: Sodium Chloride 0.9% 10 ML Syringe FLUSH PRN (10:48)
[2021-06-30] MEDS ORDERED: Ondansetron 4 MG/2 ML SDV IVPUSH ONE (10:48)
[2021-06-30] MEDS ORDERED: Acetaminophen/oxyCODONE 325-5 MG Tab PO STA (11:52)
== END 2021-06-30 12:50 | disposition home or self-care (01) ==
LOC: FB.ED 10:34
DX: G43.909 Migraine, unspecified, not intractable, without status migrainosus (principal); K52.9 Noninfective gastroenteritis and colitis, unspecified; I10 Essential (primary) hypertension; E13.9 Other specified diabetes mellitus without complications; E66.9 Obesity, unspecified; Z68.34 Body mass index [BMI] 34.0-34.9, adult; Z88.5 Allergy status to narcotic agent; Z88.8 Allergy status to other drugs, medicaments and biological substances; Z79.899 Other long term (current) drug therapy
CPT/HCPCS: 96374; 96375; 99283; A9270; J1885; J2405; J7030

== ENCOUNTER 2021-10-28 12:05 | Emergency (ER) | payer SELFPAY ==
[2021-10-28] MEDS: Promethazine 25 MG/ML SDV IM STA (12:45)
[2021-10-28] MEDS: Acetaminophen/HYDROcodone 325-5 MG Tab PO STA (12:45)
[2021-10-28 13:04] LABS: ESTIMATED GFR > 60 (>60)
[2021-10-28 13:22] VITALS: BP 153/108; PULSE 78
== END 2021-10-28 13:45 | disposition home or self-care (01) ==
LOC: FB.ED 12:05
DX: G43.909 Migraine, unspecified, not intractable, without status migrainosus (principal); I10 Essential (primary) hypertension; E11.9 Type 2 diabetes mellitus without complications; E66.9 Obesity, unspecified; Z68.30 Body mass index [BMI] 30.0-30.9, adult; Z90.49 Acquired absence of other specified parts of digestive tract; Z90.710 Acquired absence of both cervix and uterus; Z79.899 Other long term (current) drug therapy; Z88.6 Allergy status to analgesic agent; Z88.8 Allergy status to other drugs, medicaments and biological substances; Z88.5 Allergy status to narcotic agent
CPT/HCPCS: 36415; 80048; 85025; 96372; 99283; A9270; J2550; 99282

== ENCOUNTER 2021-10-30 20:35 | Emergency (ER) | payer SELFPAY ==
[2021-10-30 20:45] VITALS: BP 123/88; PULSE 83
[2021-10-30] MEDS: Ketorolac 30 MG/ML SDV IM STA (23:16)
== END 2021-10-30 23:20 | disposition home or self-care (01) ==
LOC: FB.ED 20:35
DX: R10.9 Unspecified abdominal pain (principal); R31.9 Hematuria, unspecified; I10 Essential (primary) hypertension; E11.9 Type 2 diabetes mellitus without complications; E66.9 Obesity, unspecified; Z68.30 Body mass index [BMI] 30.0-30.9, adult; Z90.49 Acquired absence of other specified parts of digestive tract; Z90.710 Acquired absence of both cervix and uterus; Z88.6 Allergy status to analgesic agent; Z88.5 Allergy status to narcotic agent; Z88.8 Allergy status to other drugs, medicaments and biological substances
CPT/HCPCS: 74176; 81001; 96372; 99282; 99284; J1885

== ENCOUNTER 2021-11-14 08:03 | Emergency (ER) | payer SELFPAY ==
[2021-11-14 15:53] VITALS: BP 147/100; PULSE 77
== END 2021-11-14 09:45 | disposition home or self-care (01) ==
LOC: FB.ED 08:03
DX: L03.317 Cellulitis of buttock (principal); L02.31 Cutaneous abscess of buttock; B86 Scabies; Z86.14 Personal history of Methicillin resistant Staphylococcus aureus infection; Z88.5 Allergy status to narcotic agent; Z88.8 Allergy status to other drugs, medicaments and biological substances; I10 Essential (primary) hypertension; E66.9 Obesity, unspecified; Z68.30 Body mass index [BMI] 30.0-30.9, adult
CPT/HCPCS: 99282

== ENCOUNTER 2022-02-06 18:59 | Emergency (ER) | payer SELFPAY ==
[2022-02-06] MEDS ORDERED: Sodium Chloride 0.9% 1,000 ML IV ONE (19:25)
[2022-02-06] MEDS ORDERED: Codeine/guaiFENesin 10-100 MG/5 ML Syrup 5 ML Cup PO ONE (19:25)
[2022-02-06 19:57] LABS: ESTIMATED GFR 95 mL/min (>60)
[2022-02-06] MEDS ORDERED: Prochlorperazine 10 MG/2 ML SDV IVPUSH ONE (20:48)
[2022-02-06] MEDS ORDERED: diphenhydrAMINE 50 MG/ML SDV IVPUSH ONE (20:48)
[2022-02-06 23:45] VITALS: BP 156/94; PULSE 88
== END 2022-02-06 21:35 | disposition home or self-care (01) ==
LOC: FB.ED 18:59
DX: G43.909 Migraine, unspecified, not intractable, without status migrainosus (principal); R05.9 Cough, unspecified; I10 Essential (primary) hypertension; E11.9 Type 2 diabetes mellitus without complications; F17.210 Nicotine dependence, cigarettes, uncomplicated; E66.9 Obesity, unspecified; Z68.34 Body mass index [BMI] 34.0-34.9, adult; Z88.8 Allergy status to other drugs, medicaments and biological substances; Z88.5 Allergy status to narcotic agent; Z79.899 Other long term (current) drug therapy
CPT/HCPCS: 36415; 71046; 80053; 85025; 85379; 86140; 96361; 96374; 96375; 99283; A9270; J0780; J1200; J7030

== ENCOUNTER 2022-03-17 17:13 | Emergency (ER) | payer SELFPAY ==
[2022-03-17 17:51] VITALS: BP 111/92; PULSE 90
[2022-03-17 18:28] LABS: ESTIMATED GFR 112 mL/min (>60)
[2022-03-17] MEDS ORDERED: Lactated Ringers 1,000 ML IV ONE (18:30)
[2022-03-17] MEDS ORDERED: Dicyclomine 10 MG Cap PO ONE (18:30)
[2022-03-17] MEDS ORDERED: Ketorolac 30 MG/ML SDV IVPUSH ONE (18:32)
[2022-03-17] MEDS: Sodium Chloride 0.9% 10 ML Syringe FLUSH PRN ×3 (19:07→19:44)
[2022-03-17] MEDS ORDERED: Ondansetron 4 MG/2 ML SDV IVPUSH ONE (19:24)
[2022-03-17] MEDS ORDERED: fentaNYL 100 MCG/2 ML SDV IVPUSH ONE (19:24)
== END 2022-03-17 20:20 | disposition still patient (30) ==
LOC: FB.ED 17:13
DX: G89.29 Other chronic pain (principal); R10.9 Unspecified abdominal pain; I10 Essential (primary) hypertension; E11.9 Type 2 diabetes mellitus without complications; F17.210 Nicotine dependence, cigarettes, uncomplicated; E66.9 Obesity, unspecified; Z68.34 Body mass index [BMI] 34.0-34.9, adult; Z88.8 Allergy status to other drugs, medicaments and biological substances; Z88.5 Allergy status to narcotic agent; Z79.899 Other long term (current) drug therapy; Z90.49 Acquired absence of other specified parts of digestive tract; Z90.710 Acquired absence of both cervix and uterus
CPT/HCPCS: 36415; 80048; 80307; 81001; 85027; 86140; 96361; 96374; 96375; 99284; A9270; J1885; J2405; J3010; J3490; J7120